=== PATIENT | female | born 1970 | race Caucasian/White ===

== ENCOUNTER 2018-12-14 05:36 | Emergency (ER) | payer SELFPAY ==
[2018-12-14] MEDS ORDERED: KETOROLAC 30 MG/ML INJ ONE (06:04)
[2018-12-14] MEDS ORDERED: ONDANSETRON 4 MG/2 ML VIAL ONE (06:04)
[2018-12-14 06:08] LABS: Absolute Lymphocytes (CBC) 2.5 K/uL (0.7-4.9); Absolute Monocytes 0.4 K/uL (0.1-1.3); Absolute Neutrophil 3.4 K/uL (1.8-8.0); Basophils % 0.3 % (0-1.3); Eosinophils % 3.5 % (0-4.4); Hematocrit 43.4 % (36.0-45.0); Lymphocytes % 38.4 % (15.3-44.8); MPV 7.8 fL (7.6-11.3); Monocytes % 6.6 % (3.3-12.3); RBC Red Blood Cell Count 4.68 M/uL (3.86-4.86)
[2018-12-14 06:21] LABS: Protime INR 0.85
[2018-12-14 06:34] LABS: ALT/SGPT 24 U/L (12-78); AST/SGOT 25 U/L (15-37); Albumin 3.9 g/dL (3.4-5.0); Alkaline Phosphatase 69 U/L (45-117); BUN Blood Urea Nitrogen 9 mg/dL (7-18); Bicarbonate 26 mmol/L (21-32); Bilirubin Direct < 0.1 mg/dL (0-0.2); Bilirubin Total 0.2 mg/dL (0.2-1.0); Glucose Level 94 mg/dL (74-106); Magnesium 2.3 mg/dL (1.8-2.4); NT PRO-BNP 50 pg/mL (<125); Potassium 4.3 mmol/L (3.5-5.1); Protein, Total 8.1 g/dL (6.4-8.2); Sodium Level 140 mmol/L (136-145); Troponin (Emerg Dept Use Only) < 0.02 ng/mL (0.0-0.045)
[2018-12-14] MEDS ORDERED: FENTANYL CITR 100 MCG/2 ML ONE (06:59)
--- NOTE | 2018-12-14 07:02 | ER ---
Nurse's Notes [facility] Name: Esthela Ramirez Age: 48 yrs Sex: Female : 1970 Arrival Date: 12/14/2018 Time: 05:37 Bed 6 Private MD: Diagnosis: Strain of muscle and tendon of back wall of thorax Presentation: 12/14 05:45 Presenting complaint: EMS states: "She is having sever left flank pain that is tender jd3 upon palpation that woke her up this morning.". Transition of care: patient was not received from another setting of care. Onset of symptoms was December 14, 2018. Risk Assessment: Do you want to hurt yourself or someone else? Patient reports no desire to harm self or others. Initial Sepsis Screen: Does the patient meet any 2 criteria? No. Patient's initial sepsis screen is negative. Does the patient have a suspected source of infection? No. Patient's initial sepsis screen is negative. Care prior to arrival: None. 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 jd3 Historical: - Allergies: 05:50 amoxicillin trihydrate; jd3 05:50 Clindamycin; jd3 05:50 potassium clavulanate; jd3 05:50 Morphine; jd3 05:50 PENICILLINS; jd3 - Home Meds: 05:50 losartan oral oral [Active]; jd3 - PMHx: 05:50 Hypertension; Hypothyroidism; jd3 - PSHx: 05:50 Breast surgery; Lumpectomy; jd3 - Immunization history:: Adult Immunizations up to date. - Social history:: Smoking status: Patient uses tobacco products, smokes one-half pack cigarettes per day. - Ebola Screening: : Patient negative for fever greater than or equal to 101.5 degrees Fahrenheit, and additional compatible Ebola Virus Disease symptoms. Screenin:53 Abuse screen: Denies threats or abuse. Nutritional screening: No deficits noted. jd3 Tuberculosis screening: No symptoms or risk factors identified. Fall Risk Ambulatory Aid- None/Bed Rest/Nurse Assist (0 pts). Gait- Normal/Bed Rest/Wheelchair (0 pts) Mental Status- Oriented to own ability (0 pts). Total Patrick Fall Scale indicates No Risk (0-24 pts). Assessment: 05:51 General: Appears uncomfortable, Behavior is anxious, crying, restless. Pain: Complains jd3 of pain in left lateral anterior chest Quality of pain is described as sharp, tender. Neuro: Level of Consciousness is awake, alert, obeys commands, Oriented to person, place, time, situation. Cardiovascular: Capillary refill < 3 seconds Patient's skin is warm and dry. Respiratory: Reports shortness of breath Airway is patent Respiratory effort is even, unlabored, Respiratory pattern is regular, symmetrical. GI: No signs and/or symptoms were reported involving the gastrointestinal system. : No signs and/or symptoms were reported regarding the genitourinary system. EENT: No signs and/or symptoms were reported regarding the EENT system. Derm: Skin is intact, Skin is dry, Skin is normal, Skin temperature is warm. Musculoskeletal: Circulation, motion, and sensation intact. Range of motion: intact in all extremities. 06:43 Reassessment: Patient appears in no apparent distress at this time. No changes from j previously documented assessment. Patient and/or family updated on plan of care and expected duration. Pain level reassessed. Patient is alert, oriented x 3, equal unlabored respirations, skin warm/dry/pink. Vital Signs: 05:50 BP 183 / 103; Pulse 91; Resp 19 S; Temp 98.1(O); Pulse Ox 97% on R/A; Weight 81.65 kg jd3 (R); Height 5 ft. 6 in. (167.64 cm) (R); Pain 8/10; 06:43 BP 176 / 116; Pulse 81; Resp 15 S; Pulse Ox 97% on R/A; jd3 05:50 Body Mass Index 29.05 (81.65 kg, 167.64 cm) jd3 ED Course: 05:37 Patient arrived in ED. al2 05:45 Shan Mae, TWILA is Primary Nurse. jd3 05:45 Rajesh Kimble MD is Attending Physician. tw4 05:47 Triage completed. jd3 05:51 Arm band placed on. jd3 05:53 Patient has correct armband on for positive identification. Bed in low position. Call [facility] light in reach. Side rails up X2. 05:55 Initial lab(s) drawn, by me, sent to lab. Inserted saline lock: 20 gauge in right ed1 antecubital area, using aseptic technique. Blood collected. 06:10 X-ray completed. Portable x-ray completed in exam room. Patient tolerated procedure kw poorly. 06:11 XRAY Chest (1 view) In Process Unspecified. EDMS 07:15 No provider procedures requiring assistance completed. IV discontinued, intact, hb bleeding controlled, No redness/swelling at site. Pressure dressing applied. Administered Medications: 06:03 CANCELLED (Physician Discretion): morphine 4 mg IVP once jd3 06:04 Drug: Zofran 4 mg Route: IVP; Site: right antecubital; jd3 06:54 Follow up: Response: No adverse reaction jd3 06:04 Drug: TORadol 30 mg Route: IVP; Site: right antecubital; jd3 06:54 Follow up: Response: No adverse reaction jd3 06:54 Drug: fentaNYL (PF) 25 mcg Route: IVP; Site: right antecubital; jd3 07:15 Follow up: Response: No adverse reaction; Medication administered at discharge. hb 07:14 Drug: cloNIDine 0.1 mg Route: PO; hb 07:15 Follow up: Response: Medication administered at discharge. hb Outcome: 07:01 Discharge ordered by . tw4 07:15 Discharged to home ambulatory, with family. hb 07:15 Condition: stable 07:15 Discharge instructions given to patient, Instructed on discharge instructions, follow up and referral plans. medication usage, Demonstrated understanding of instructions, follow-up care, medications, Prescriptions given X 3. 07:22 Patient left the ED. hb Signatures: Dispatcher [employer] EDNV Breanna Schwartz RN RN ed1 Nieves Darnell Heather, RN RN Shan Mae RN RN Abigail Farooq Terrence, MD MD tw4
--- NOTE | 2018-12-14 07:02 | EDPHYS ---
Physician Documentation [facility] Name: Esthela Ramirez Age: 48 yrs Sex: Female : 1970 Arrival Date: 12/14/2018 Time: 05:37 Bed 6 Private MD: ED Physician Rajesh Kimble HPI: 12/14 06:28 This 48 yrs old Female presents to ER via EMS with complaints of chest pain tw4 after coughing. 06:28 The patient or guardian reports chest pain that is located primarily in the left tw4 lateral anterior chest. Onset: just prior to arrival, today. The pain does not radiate. Associated signs and symptoms: Pertinent positives: shortness of breath, anxiety. The chest pain is described as sharp. Duration: The patient or guardian reports a single episode, that is still ongoing. Modifying factors: The symptoms are alleviated by remaining still, rest, the symptoms are aggravated by activity, breathing, cough, deep breath, movement, palpation of area, twisting torso. Severity of pain: At its worst the pain was severe in the emergency department the pain is unchanged. 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 jd3 Historical: - Allergies: 05:50 amoxicillin trihydrate; jd3 05:50 Clindamycin; jd3 05:50 potassium clavulanate; jd3 05:50 Morphine; jd3 05:50 PENICILLINS; jd3 - Home Meds: 05:50 losartan oral oral [Active]; jd3 - PMHx: 05:50 Hypertension; Hypothyroidism; jd3 - PSHx: 05:50 Breast surgery; Lumpectomy; jd3 - Immunization history:: Adult Immunizations up to date. - Social history:: Smoking status: Patient uses tobacco products, smokes one-half pack cigarettes per day. - Ebola Screening: : Patient negative for fever greater than or equal to 101.5 degrees Fahrenheit, and additional compatible Ebola Virus Disease symptoms. ROS: 06:28 Constitutional: Negative for fever, chills, and weight loss, Eyes: Negative for injury, tw4 pain, redness, and discharge. 06:28 Respiratory: Negative for shortness of breath, cough, wheezing, and pleuritic chest pain, Abdomen/GI: Negative for abdominal pain, nausea, vomiting, diarrhea, and constipation, Back: Negative for injury and pain, MS/Extremity: Negative for injury and deformity, Skin: Negative for injury, rash, and discoloration, Neuro: Negative for headache, weakness, numbness, tingling, and seizure. 06:28 Cardiovascular: Positive for chest pain, Negative for edema, orthopnea, palpitations, paroxysmal nocturnal dyspnea. Exam: 06:28 Constitutional: This is a well developed, well nourished patient who is awake, alert, tw4 and in no acute distress. Head/Face: Normocephalic, atraumatic. 06:28 Respiratory: Lungs have equal breath sounds bilaterally, clear to auscultation and percussion. No rales, rhonchi or wheezes noted. No increased work of breathing, no retractions or nasal flaring. Abdomen/GI: Soft, non-tender, with normal bowel sounds. No distension or tympany. No guarding or rebound. No evidence of tenderness throughout. Back: No spinal tenderness. No costovertebral tenderness. Full range of motion. Skin: Warm, dry with normal turgor. Normal color with no rashes, no lesions, and no evidence of cellulitis. MS/ Extremity: Pulses equal, no cyanosis. Neurovascular intact. Full, normal range of motion. Neuro: Awake and alert, GCS 15, oriented to person, place, time, and situation. Cranial nerves II-XII grossly intact. Motor strength 5/5 in all extremities. Sensory grossly intact. Cerebellar exam normal. Normal gait. 06:28 Chest/axilla: Inspection: normal, Palpation: tenderness, of the left lateral anterior chest, that totally reproduces the patient's complaints. 06:28 ECG was reviewed by the Attending Physician. Vital Signs: 05:50 BP 183 / 103; Pulse 91; Resp 19 S; Temp 98.1(O); Pulse Ox 97% on R/A; Weight 81.65 kg jd3 (R); Height 5 ft. 6 in. (167.64 cm) (R); Pain 8/10; 06:43 BP 176 / 116; Pulse 81; Resp 15 S; Pulse Ox 97% on R/A; jd3 05:50 Body Mass Index 29.05 (81.65 kg, 167.64 cm) jd3 MDM: 05:45 Patient medically screened. tw4 06:55 Data reviewed: vital signs, nurses notes. tw4 01/22 05:46 Order name: Basic Metabolic Panel; Complete Time: 06:53 12/14 06:54 Interpretation: Normal except: CL 108; GFR 74. 12/14 05:46 Order name: CBC with Diff; Complete Time: 06:54 12/14 06:54 Interpretation: Within normal limits. 12/14 05:46 Order name: LFT's; Complete Time: 06:54 12/14 06:54 Interpretation: Normal except: GLOB 4.2; A/G 0.9. 12/14 05:46 Order name: Magnesium; Complete Time: 06:54 12/14 06:54 Interpretation: Within normal limits: MG 2.3. 12/14 05:46 Order name: NT PRO-BNP; Complete Time: 06:54 12/14 06:54 Interpretation: Within normal limits: NT PRO-BNP 50. 12/14 05:46 Order name: PT-INR; Complete Time: 06:54 12/14 06:54 Interpretation: Within normal limits: PT 10.0. 12/14 05:46 Order name: Troponin (emerg Dept Use Only) 12/14 05:46 Order name: XRAY Chest (1 view) 12/14 05:46 Order name: EKG; Complete Time: 05:50 12/14 05:46 Order name: Cardiac monitoring; Complete Time: 05:59 12/14 05:46 Order name: EKG - Nurse/Tech; Complete Time: 05:59 12/14 05:46 Order name: IV Saline Lock; Complete Time: 05:56 12/14 05:46 Order name: Labs collected and sent; Complete Time: 05:56 12/14 05:46 Order name: O2 Per Protocol; Complete Time: 06:00 12/14 05:46 Order name: O2 Sat Monitoring; Complete Time: 06:00 EC:28 Rate is 72 beats/min. Rhythm is regular. QRS Bonham is Normal. AK interval is normal. QRS tw4 interval is normal. QT interval is normal. No Q waves. T waves are Normal. No ST changes noted. Clinical impression: Normal ECG. Interpreted by me. Reviewed by me. Administered Medications: 06:03 CANCELLED (Physician Discretion): morphine 4 mg IVP once jd3 06:04 Drug: Zofran 4 mg Route: IVP; Site: right antecubital; jd3 06:54 Follow up: Response: No adverse reaction jd3 06:04 Drug: TORadol 30 mg Route: IVP; Site: right antecubital; jd3 06:54 Follow up: Response: No adverse reaction jd3 06:54 Drug: fentaNYL (PF) 25 mcg Route: IVP; Site: right antecubital; jd3 07:15 Follow up: Response: No adverse reaction; Medication administered at discharge. hb 07:14 Drug: cloNIDine 0.1 mg Route: PO; hb 07:15 Follow up: Response: Medication administered at discharge. Disposition: 12/14/18 07:01 Discharged to Home. Impression: Strain of muscle and tendon of back wall of thorax. - Condition is Stable. - Discharge Instructions: Thoracic Strain, [id number]. - Prescriptions for Ibuprofen 800 mg Oral Tablet - take 1 tablet by ORAL route every 8 hours As needed take with food; 30 tablet. Tylenol- Codeine #3 300-30 mg Oral Tablet - take 2 tablet by ORAL route every 6 hours As needed; 6 tablet. Tramadol 50 mg Oral Tablet - take 1 tablet by ORAL route every 8 hours as needed; 12 tablet. - Work release form, Medication Reconciliation Form, Thank You Letter, Antibiotic Education, Prescription Opioid Use form. - Follow up: Private Physician; When: Upon discharge from the Emergency Department; Reason: Recheck today's complaints, Continuance of care. - Problem is new. - Symptoms have improved. Signatures: Dispatcher [employer] EDCT Autumn Brown RN TWILA Shan Mae RN RN Rajesh Haywood MD MD tw4 Corrections: (The following items were deleted from the chart) 06:03 05:46 morphine 4 mg IVP once ordered. tw4 jd3 07:22 07:01 12/14/2018 07:01 Discharged to Home. Impression: Strain of muscle and tendon of hb back wall of thorax. Condition is Stable. Forms are Medication Reconciliation Form, Thank You Letter, Antibiotic Education, Prescription Opioid Use. Follow up: Private Physician; When: Upon discharge from the Emergency Department; Reason: Recheck today's complaints, Continuance of care. Problem is new. Symptoms have improved. tw4
[2018-12-14] MEDS ORDERED: cloNIDine HCl 0.1 MG TAB ONE (07:18)
[2018-12-14 07:45] VITALS: TEMP 98.1; O2SAT 97
[2018-12-14 07:46] VITALS: BP 176/116
--- NOTE | 2018-12-14 08:39 | RAD REPORT ---
EXAM DESCRIPTION: RAD - Chest Single View - 12/14/2018 6:15 am CLINICAL HISTORY: CHEST PAIN Chest pain. COMPARISON: CHEST SINGLE VIEW dated 02/17/2013 FINDINGS: Portable technique limits examination quality. The lungs are grossly clear. The heart is normal in size. No displaced fractures. IMPRESSION: No acute intrathoracic process suspected.
--- NOTE | 2018-12-14 13:26 | EKG ---
Test Date: 2018-12-14 Test Time: 05:56:02 Bandoleer Packer: YOLY MEASUREMENT RESULTS: Intervals: Rate: 76 WI: 112 QRSD: 78 QT: 400 QTc: 450 Wallis: P: 26 WI: 112 QRS: 64 T: 24 INTERPRETIVE STATEMENTS: Normal sinus rhythm Normal ECG Compared to ECG 02/17/2013 12:23:19 No significant changes Electronically Signed On 12-14-18 13:24:07 MUD JACK OPERATOR by Orville Graff
== END 2018-12-14 07:22 | disposition home or self-care (01) ==
LOC: ER 05:36
DX: S29.012A Strain of muscle and tendon of back wall of thorax, initial encounter (principal); X58.XXXA Exposure to other specified factors, initial encounter; I10 Essential (primary) hypertension; E03.9 Hypothyroidism, unspecified; F17.210 Nicotine dependence, cigarettes, uncomplicated; Z79.899 Other long term (current) drug therapy
CPT/HCPCS: 36415; 71045; 80048; 80076; 83735; 83880; 84484; 85025; 85610; 93005; 96374; 96375; 99284; J2405; J3010

== ENCOUNTER 2019-06-10 10:15 | Day surgery (SDC) | payer OTHER ==
[2019-06-09 12:36] LABS: BUN Blood Urea Nitrogen 12 mg/dL (7-18); Bicarbonate 32 mmol/L (21-32); Glucose Level 84 mg/dL (74-106); Potassium 3.8 mmol/L (3.5-5.1); Sodium Level 144 mmol/L (136-145)
[2019-06-09 12:37] LABS: Absolute Lymphocytes (CBC) 2.6 K/uL (0.7-4.9); Basophils % 0.9 % (0-1.3); Hematocrit 36.4 % (36.0-45.0); Lymphocytes % 33.4 % (15.3-44.8); Monocytes % 7.1 % (3.3-12.3)
[2019-06-10 10:57] LABS: Specific Gravity 1.015 (1.005-1.030)
[2019-06-10] MEDS ORDERED: Ringers Lactate 1,000 ML IV ONE ×2 (10:58→14:53)
[2019-06-10] MEDS ORDERED: FENTANYL CITR 100 MCG/2 ML ONE (11:16)
[2019-06-10] MEDS ORDERED: dexAMETHasone 10 MG/ML VIAL ONE (11:16)
[2019-06-10] MEDS ORDERED: MIDAZOLAM HCL 2 MG/2 ML INJ ONE ×2 (11:16→14:24)
[2019-06-10] MEDS ORDERED: PROPOFOL 200 MG/20 ML VIAL IV ONE (11:16)
[2019-06-10] MEDS ORDERED: LIDOCAINE 2% MPF 5 ML VIAL ONE (11:16)
--- NOTE | 2019-06-10 13:30 | RAD REPORT ---
EXAM DESCRIPTION: RAD - Wrist Left 2 View - 06/10/2019 1:24 pm CLINICAL HISTORY: Radial fracture FINDINGS: 7 fluoroscopic intraoperative spot images demonstrate Sideplate and screws which affix a r adial fracture Fluoroscopy time 2 minutes. Examination performed by Dr. Humphrey
[2019-06-10] MEDS ORDERED: KETOROLAC 30 MG/ML INJ ONE (13:47)
--- NOTE | 2019-06-10 13:54 | P.BOP ---
Preoperative diagnosis: left distal radius comminuted intraarticular fx with median nerve sx Postoperative diagnosis: same Primary procedure: left distal radius ORIF, open CTR Estimated blood loss: 10ccs Anesthesia: General Complications: None Transferred to: Recovery Room Condition: Good
[2019-06-10] MEDS: HYDROMORPHONE HCL 1 MG/ML INJ ONE ×2 (14:00→14:15)
[2019-06-10] MEDS ORDERED: HYDROMORPHONE HCL 1 MG/ML INJ ONE (14:36)
[2019-06-10] MEDS: LABETALOL HCL 100 MG/20 ML ONE ×2 (14:40→14:49)
[2019-06-10] MEDS ORDERED: LABETALOL HCL 100 MG/20 ML ONE (14:47)
[2019-06-10 14:57] VITALS: TEMP 97.3
[2019-06-10] MEDS ORDERED: HYDROCODONE/APAP 5/325 MG TAB ONE (15:39)
[2019-06-10] MEDS ORDERED: ONDANSETRON 4 MG/2 ML VIAL ONE (15:39)
[2019-06-10 16:21] VITALS: BP 159/78; O2SAT 99
--- NOTE | 2019-06-10 21:57 | OP ---
Date of Procedure: 06/10/2019 Surgeon: Dony Humphrey MD Preoperative Diagnoses: Left distal radius comminuted intra-articular fracture with at least 2 intra -articular fragments, also with median nerve paresthesias. Postoperative Diagnoses: Left distal radius comminuted intra-articular fracture with at least 2 intr a-articular fragments, also with median nerve paresthesias. Procedures: Left distal radius open reduction and internal fixation using Acumed 2 volar radius plat e, also with open carpal tunnel release. Estimated Blood Loss: 10 cc. Complications: There were no complications. Specimen: No pathology specimens sent. Indications For Operation: Ms. Ramirez unfortunately fell injuring her left wrist. She was seen and examined in the emergency department where she was found to have a comminuted highly displaced dista l radius fracture. She underwent a closed reduction at that time by the ER and was placed to a sugar -tong splint. She did not come in contact with me until quite a bit later and on seeing me, she is i n a sugar-tong splint. She is complaining of numbness of her thumb, index and long finger. Review o f x-rays reveal actually what appears to be a good closed reduction of the distal radius. However, t here are some other definitely intra-articular comminution as well as some projection of volar bony o ssicles. All risks, benefits, and alternatives to open reduction and internal fixation, open carpal tunnel release discussed with the patient. She states she understands things as presented wished to proceed. Description Of Procedure: The patient was taken to the operating room and placed in supine position. General anesthesia was obtained by staff. Following this, a well-padded tourniquet was placed on s uperior left arm. Left lower extremity was then prepped and draped in the usual sterile fashion. Th e arm was then elevated, but not exsanguinated. Tourniquet was raised. A standard volar approach of Dylan was then taken down carefully through skin and soft tissues. Meticulous hemostasis being main tained using bipolar electrocautery. This leads to the flexor carpi radialis. Flexor carpi radialis was then moved radialward and the sheath was then explored using a knife. The tendon and muscle bel ly of the flexor pollicis longus was seen. These were then swept ulnarward to protect the median ner ve. The pronator quadratus was encountered. The large volar fragment is extruded with a pretty clos e to a centimeter from the volar aspect of the distal radius. The pronator quadratus was divided in its midsubstance and gently moved off the distal radius using a wooden handle elevator. This allowed for good visualization of the volar aspect. Some of this is gently removed. However, the majority of it was left intact as the fracture site, which is quite old, was debrided. Combination of a stand jonathan reduction technique as well as finger pressure was then used to establish a more normal appearanc e of the distal radius. This was followed by a trial application of the Acumed 2 volar radius plate. This appeared to compress the volar fragments down well and essentially with another small reductio n maneuver appears to fit well with a near anatomic reduction of the distal radius. This was followe d by securing the plate using the toggle screw, it was checked again for position and the distal scre ws were then placed in a fashion to maintain the reduction. This was followed by checking with C-arm , found to have good reduction with AP and lateral. The remainder of the shaft screws were then plac ed without difficulty. The wound was gently irrigated and attention was then turned to the carpal tu nnel. A separate incision was then made which parallels the thenar crease, taken down carefully thro ugh skin and soft tissues. Meticulous hemostasis being maintained using bipolar electrocautery. Thi s leads down to the palmar fascia, which was then divided. Any obstructions of the transverse carpal ligament were then gently swept aside using a Winger elevator. A small vale is made in the transvers e carpal ligament, which allowed for visualization of the underlying nerve and the carpal tunnel stru ctures. It was then divided from a proximal to distal direction until there were no constricting ban ds. It was then very carefully followed proximally and released until there were no constricting ban ds. An instrument can be passed along the course of the median nerve without any constricting bands. At this point, the swelling was fully released. Following this, tourniquet was dropped without sig nificant bleeding and the skin was closed using interrupted nylon sutures. The patient was then plac ed extremely well-padded sterile dressing as well as sugar-tong splint, awakened, and taken to the recovery room in good condition. N o complications. SE/MODL Voice ID: [id number] Report ID: [id number]
== END 2019-06-10 16:20 | disposition home or self-care (01) ==
LOC: OR 10:15
PROVIDERS: ATTEND Orthopaedic Surgery
PROC: 0PSJ04Z Reposition Left Radius with Internal Fixation Device, Open Approach (ICD-10-PCS; principal; 2019-06-10 11:30)
PROC: 01N50ZZ Release Median Nerve, Open Approach (ICD-10-PCS; 2019-06-10 11:30)
DX: S52.572A Other intraarticular fracture of lower end of left radius, initial encounter for closed fracture (principal); G56.02 Carpal tunnel syndrome, left upper limb; Z87.891 Personal history of nicotine dependence
CPT/HCPCS: 36415; 80048; 81025; 85025; J1100; J1170; J2250; J2405; J2704; J3010

== ENCOUNTER 2024-03-09 06:33 | Observation (INO) | payer OTHER, SELFPAY ==
--- OUTSIDE RECORDS SUMMARY | 2024-03-09 06:36 | XMS REPORT | Continuity of Care Document ---
Author Name Unknown Address [address] [facility]. [address] [place] [id number] [facility] thconnect Address [address] [facility]. 1 [address] [place] [address] Care Team Providers Care Development Scientist Name Role Phone Jamie Chavez Attending Clinician UnavailRosalino Ponce Attending Clinician Unavailable Cony Peterson Attending Clinician Unava ilable Physician, No Primary or Family Admitting Clinic surinder Unavailable Yuriy Smiley Admitting Clinician Unavailable Cony Peterson Admitting Clinician Unajimena soto Payers Payer Name Policy Type Policy Number Effective Date Expirati on Date Source Allergies, Adverse Reactions, Alerts Allergy Name Allergy Type Status Severity Reaction(s) Onset Date Inactive Date Treating Clinician Comments Source Penicill ins DA Active SV ANAPHYLAXIS 03-30 00:00: 00 [facility] morphine DA Active MO RASH; HEADACHE 03-30 00:00: 00 [facility] clindamy quinton DA Active SV ANAPHYLAXIS 03-30 00:00: 00 [facility] clindamy quinton DA Active SV ANAPHYLAXIS 03-29 00:00: 00 [facility] Penicill ins DA Active SV ANAPHYLAXIS 03-29 00:00: 00 [facility] morphine DA Active MO RASH; HEADACHE 03-29 00:00: 00 [facility] clindamy quinton DA Active U ANAPHYLAXIS 07-31 00:00: 00 [facility] Penicill ins DA Active SV ANAPHYLAXIS 07-31 00:00: 00 [facility] morphine DA Active MO RASH; HEADACHE 07-31 00:00: 00 [facility] No Known Drug Intolera nces DA Active U 2004-11 00:00: 00 [facility] No Known Contrast Allergie s DA Active U 2004-11 00:00: 00 [facility] No Known Drug Allergie s DA Active U 2004-11 00:00: 00 [facility] No Known Food Allergie s DA Active U 2004-11 00:00: 00 [facility] No Known Other Allergie s DA Active U 2004-11 00:00: 00 [facility] Procedures Procedure Date / Time Performed Performing Clinicia n Source [id number] 2023-04-01 00:00:00 [facility] Encounters Start Date/Time End Date/Time Encounter Type Admission Type Attending Clinicians Care Facility Care Department Encounter ID Source 2023-11-28 14:49:00 2023-11-28 17:48:00 Emergency EM Jamie Chavez [facility] DESHAUN [id number] [facility] 2023-03-30 16:01:00 2023-04-02 15:03:00 Inpatient EM BebetogabNimeshRosalino [facility] OBSE [id number] [facility] 2022-07-31 20:37:00 2022-08-05 10:42:00 Inpatient EM Cony Peterson [facility] MEDI [id number] [facility] Results Test Description Test Time Test Comments Results Result Co mments Source TROP-I HIGH [id number] 16:59:00* Test Item Value Reference Range Interpretation Comme nts TROP-I HIGH SENSITIVITY (test code = TROPIHS) 42 ng/L 0-45 N CAUTION: Units of the current test methodology (ng/L) differfrom the prior test methodology (ng/mL) by a factor of 1000. 99th Percentile Upper Reference Limit (URL): Females: 54 ng/LMales: 78 ng/L In order to distinguish acute elevations of high sensitivitytroponin from other clinical conditions, the FourthUniversal Definition of Myocardial Infarction stressesclinical assessment and the demonstration of a rise and/orfall in serial troponin results above the URL. Results from different methodologies should not be comparedto one another as quantitative results and URLs may vary bymethod. BASIC METABOLIC [id number] 16:55:00* Test Item Value Reference Range Interpretation Comme nts SODIUM (test code = NA) 134.0 mmol/L 133-144 N POTASSIUM (test code = K) 3.9 mmol/L 3.5-5.1 N CHLORIDE (test code = CL) 102 mmol/L 95-105 N CARBON DIOXIDE (test code = CO2) 27 mmol/L 21-32 N ANION GAP (test code = GAP) 5.0 GAP calc 4.0-15.0 N GLUCOSE (test code = GLU) 113 MG/DL 70-110 H BLOOD UREA NITROGEN (test code = BUN) 10 MG/DL 7-18 N GLOMERULAR FILTRATION RATE (test code = GFR) 105 estGFR >60 The Glomerular Filtration Rate is a calculated parameterbased on serum Creatinine, patient age and sex. GFR valuesless than 60 mL/min/1.73 square meters are indicative ofChronic Kidney Disease. Values less than 15 mL/min/1.73square meters indicate Kidney failure. The calculation forGFR is based on the CKD-EPI (2020) calculation. This formulais race indifferent and is the recommended formula for GFRby the National Kidney Foundation for Adults.The GFR will not calculate if the sex is unknown or if thepatient's age is <18 years. CREATININE (test code = CREAT) 0.68 MG/DL 0.55-1.30 N Results may be depressed if patient is takingN-Acetylcysteine (NAC) and Metamizole (Dipyrone). CALCIUM (test code = CA) 9.5 MG/DL 8.5-10.1 N INDEX HEMOLYSIS (test code = HEMINDEX) 1 NORMAL <10 MG Index/DL See_Comment [Automated message] The system which generated this result transmitted reference range: 1 NORMAL. The reference range was not used to interpret this result as normal/abnormal. INDEX ICTERIC (test code = ICTINDEX) 1 NORMAL <2 MG Index/DL See_Comment [Automated message] The system which generated this result transmitted reference range: 1 NORMAL. The reference range was not used to interpret this result as normal/abnormal. INDEX LIPEMIA (test code = LIPINDEX) 1 NORMAL <50 MG Index/DL See_Comment [Automated message] The system which generated this result transmitted reference range: 1 NORMAL. The reference range was not used to interpret this result as normal/abnormal. COVID 19 INHOUSE [id number] 16:52:00* Test Item Value Reference Range Interpretation Comme nts COVID 19 INHOUSE AG (test co de = [id number]) Negative Neg CBC W/O [id number] 16:36:00* Test Item Value Reference Range Interpretation Comme nts WHITE BLOOD CELL (test code = WBC) 10.6 K/mm3 4.1-12.1 N RED BLOOD CELL (test code = RBC) 4.62 M/mm3 3.8-5.5 N HEMOGLOBIN (test code = HGB) 14.2 G/DL 10.6-15.8 N HEMATOCRIT (test code = HCT) 42.7 % 31.8-47.4 N MEAN CELL VOLUME (test code = MCV) 92.4 fL 80.1-101.1 N MEAN CELL HGB (test code = MCH) 30.7 pg 25.3-35.3 N MEAN CELL HGB CONCETRATION ( test code = MCHC) 33.3 G/DL 32.7-35.1 N RED CELL DISTRIBUTION WIDTH (test code = RDW) 13.8 % 12.2-16.4 N PLATELET COUNT (test code = PLT) 276 K/mm3 155-337 N MEAN PLATELET VOLUME (test c ode = MPV) 9.1 fL 6.8-11.2 N - XR CHEST 1 [id number] 15:37:00 [facility] : 1970 Sex: F FAX: Mario Olsen [place]: E St: PRE Patient Name: EMMIE TIMMONS Unit No: [id number] EXAMS: CPT CODE: [id number] XR CHEST 1V 73789 EXAM: - XR CHEST 1 V COMPARISON: None available at the time of interpretation. LOCATION: [facility] HISTORY: Shortness of breath FINDINGS: Single view of the chest. No indwelling lines or tubes. No pneumothorax. Bibasilar interstitial pulmonary edema noted. The mediastinal contours are unremarkable/unchanged. No acute osseous findings are present. IMPRESSION: Bibasilar interstitial pulmonary edema. at 1537 Reported and signed by: Ugo Stinson MD CC: Mario CHAN Dictated Date/Time: 11/28/2023 (1537)Technologist: Shaniqua Lee Transcribed Date/Time: 11/28/2023 (2026) By: [email or web address] Orig Print D/T: S: 11/28/2023 (8305) BRYSON Ojeda NAME: EMMIE TIMMONS [address] [place] [address] PHYS: Mario Herrera, [place] [address] : 1970 AGE: 53 SEX: F LOC: BARRY PHONE #: [phone] EXAM DATE: 11/28/2023 STATUS: PRE ER FAX #: [phone] RAD NO: DC Dt: PAGE 1 Signed [id number] 14:22:00* Test Item Value Reference Range Interpretation Comme nts SURGICAL (test code = SR) RUN DATE: 04/02/23 [place] - LAB PAGE 1 RUN TIME: 1422 Specimen Inquiry RUN USER: INTERFACE PATIENT: EMMIE TIMMONS LOC: SRINATH U #: [id number] AGE/SX: 52/F ROOM: [facility] RE03/30/23REG DR: Rosalino Fletcher MD : 74 BED: W DIS: STATUS: ADM IN TLOC: SPEC #: [id number] RECD: 04/01/23 STATUS: TERRI ABRAHAM #: [id number] OUMAR: 04/01/[address]: Rosalino Fletcher MD ENTERED: 04/01/23 SP TYPE: SURGICAL OTHR DR: No Primary or Family Physician Self Referred Yuriy Smiley MD, Stephen C MDORDERED: 04500, ANATOMIC SPEC COPIES TO: No Primary or Family Physician Self Referred Yuriy Smiley MD [address] [facility] [place] [address] Vishal Kim MD [address] [facility] [address] [place] [address] Rosalino Fletcher MD [address] [place] [phone] HISTOLOGY: TISSUE ID BLK PCS LIZZETTE LEV / PROCEDURE DISPOSITION ____ ___ ___ ___ ___ GALB A 2 2 PROCEDURES: 71510 (04/01/23) TISSUES: A. GALLBLADDER FINAL DIAGNOSIS GALLBLADDER, LAPAROSCOPIC CHOLECYSTECTOMY: - Chronic acalculous cholecystitis- One benign pericholecystic lymph node CONTINUED ON NEXT PAGE RUN DATE: 04/02/23 [facility] - LAB PAGE 2 RUN TIME: 1422 Specimen Inquiry RUN USER: INTERFACE SPEC #: [id number] PATIENT: EMMIE TIMMONS #[id number] (Continued) GROSS DESCRIPTION Received in formalin labeled with the patient's name (Ashley), medical record number and"gallbladder" is a 10 x 3 x 2 cm intact ovoid gallbladder with pink-red serosal surface andcauterized hepatic aspect. The cystic duct margin has metallic roverto and appears patent.Longitudinal opening reveals dark green thin bile. Gallstones are not identified withinthe gallbladder lumen or the specimen container. The mucosa is nicholas and slightlytrabeculated. A mass is not identified. The gallbladder wall is up to 0.2 cm thick. Section Code: A1, cystic duct margin; A2, field marketing representative gallbladder wall. OK/tb MICROSCOPIC DESCRIPTION Unless otherwise indicated, a microscopic examination has been performed on all specimensand the findings are incorporated in the final diagnosis. CLINICAL INFORMATION Cholecystitis - Signed SIGNATURE ON FILE Jonas Lyon 04/02/23 1422 END OF REPORT - HEPA IMAG INCL GB W [id number] 12:12:00 [facility] : 1970 Sex: F-------- Patient Name: EMMIE TIMMONSJacqueline No: [id number] EXAMS: CPT CODE: [id number] HEPA IMAG INCL GB W PHA [id number] LOCATION: T18 Hepatobiliary scan INDICATION: Abdominal pain Hepatobiliary imaging was performed after administration of 8.3 mCi technetium 99m mebrofenin. Normal activity is present throughout the liver. Images were obtained up to and including 2 hours. There is no activity within the gallbladder, common bile duct or small bowel. IMPRESSION: Acute cholecystitis/cystic duct obstruction at 1212 Reported and signed by: Ferdinand Howe D.O. Nuclear Medicine Cardiology exams performed on dual head cameras with appropriate software for processing and reporting. CC: Yan Firoz MD [facility] NAME: ASHLEYEMMIE [facility] PHYS: Yuriy Blanco MD [address] [place] [address] : 1970 AGE: 52 SEX: HAROON PHILLIPS [facility] LOC: B.421 W PHONE #: [phone] EXAM DATE: 03/31/2023 STATUS: ADM IN FAX #: [phone] RAD NO: DC Dt: PAGE 1 Signed Report Patient Name: EMMIE TIMMONS Unit No: [id number] EXAMS: CPT CODE: [id number] IMAG INCL GB W PHA [id number] (Continued) Technologist: GUILLERMINA MORRIS Transcribed Date/Time: 03/31/2023 (1212) - [email or web address] Orig Print D/T: S: 03/31/2023 (1216) BRYSON Ojeda NAME: ASHLEYEMMIE MEDICAL IMAGING PHYS: Yuriy Lantigua MD [address] [place] [address] : 1970 AGE: 52 SEX: HAROON PHILLIPS [facility] LOC: B.421 W PHONE #: [phone] EXAM DATE: 03/31/2023 STA TUS: ADM IN FAX #: [phone] RAD NO: DC Dt: PAGE 2 Signed Report- CT CHEST W/O [id number] 10:16:00 [facility] ASHLEY EMMIE : 1970 Sex: F Patient Name: EMMIE TIMMONS Unit No: [id number] EXAMS: CPT CODE: [id number] CT CHEST W/O CONTRAST 61484 EXAM: - CT CHEST W/O CONTRAST HISTORY: r/o pneumonia Location: T 18 TECHNIQUE: Axial tomograms throughthe chest were obtained without intravenous contrast. Coronal and sagittal reformatted images are provided. Automated exposure reduction (Auto mA/Smart mA) was utilized in compliance with ACR Image Wisely. Unless otherwise specified, incidental findings do not require dedicated imaging follow-up. COMPARISON: 03/29/2023 FINDINGS: LUNGS: A few tiny emphysematous blebs seen at the lung apices. Small areas of pleural and parenchymal scarring at the lingula and right middle lobe. Small area of pleural thickening adjacent to old healed right rib fractures A few new linear opacities are seen at the lung bases suggesting subsegmental atelectasis. No channing consolidation or groundglass opacities. Thereare calcified granuloma in the left lung. There is a 2.5 mm groundglass nodule in the left upper lobe, series 3, image 34. There is a 2.5 mm round class nodule the right lower lobe, series 3, image 49. PLEURA: No pleural effusion or pneumothorax. VASCULATURE: The aorta is normal in caliber. No significant atherosclerotic change. TRACHEOBRONCHIAL TREE: The trachea and lobar bronchi are unremarkable. LYMPHATICS: There is no gross adenopathy accounting for lack of intravenous contrast. VISUALIZEDABDOMEN: Unremarkable. BONES: No acute osseous findings. Degenerative change involving the spine ispresent. There are multiple old healed rib fractures. SOFT TISSUES: Unremarkable. OTHER: No significant additional findings. IMPRESSION: A few new linear opacities are seen in the lung bases which suggests subsegmental atelectasis. Mild emphysema and minimal/mild scattered pleural parenchymal scarr ing. [facility] Augie NAME: EMMIE TIMMONS MEDICAL IMAGING PHYS: Yuriy Lantigua MD [address] [place] [address] BLVD : 1970 AGE: 52 SEX: HAROON PH[place] [address] LOC: B.421 W PHONE #: [phone] EXAM DATE: 03/30/2023 STATUS: ADM IN FAX #: [phone] RAD #: D/C DT PAGE 1 Signed Report (CONTINUED) Patient Name: EMMIE TIMMONS Unit No: [id number] EXAMS: CPT CODE: [id number] CT CHEST W/O CONTRAST 15840 (Continued) 2 subcentimeter groundglass nodules are seen in the lungs. A follow-up CT scan in 3-6 months as per Fleischner recommendations. at 1016 Reported and signed by: Elsa Nicole MD CC: Yuriy Smiley MD Dictated Date/Time: 03/30/2023 (1016) Technologist: REILLY POSADA CTDI: 6.22 DLP: 257.71 Trnscrpt: 03/30/2023 (1016) [email or web address] BRYSON Ojeda NAME: EMMIE TIMMONS MEDICAL IMAGING PHYS: Yuriy Lantigua MD [address] [place], [place] [address]VD : 1970 AGE: 52 SEX: HAROON PHILLIPS [facility] LOC: B.421 W PHONE #: [phone] EXAM DATE: 03/30/2023 STATUS: ADM IN FAX #: [phone] #: D/C DT PAGE 2 Signed Report Patient Name: EMMIE TIMMONS Unit No: [id number] EXAMS: CPT CODE: [id number] CT CHEST W/O CONTRAST 76685 (Continued) Orig Print D/T: S: 03/30/2023 (1019) BRYSON WhippleroeNAME: EMMIE TIMMONS MEDICAL IMAGING PHYS: Yuriy Lantigua MD [address] [place], [place] [address]VD : [birth year] AGE: 52 SEX: HAROON PHILLIPS [address] LOC: B.421 W PHONE #: [phone] DATE: 03/30/2023 STATUS: ADM IN FAX #: [phone] RAD #: D/C DT PAGE 3 Signed Report- US ABDOMEN [id number] 08:04:00 [facility] : 1970 Sex: F Patient Name: EMMIE TIMMONS Unit No: [id number] EXAMS: CPT CODE: [id number] US ABDOMEN LTD 53395 Limited ultrasound abdomen, right upper quadrant LOCATION: T 18 INDICATION:Epigastric and right upper quadrantpain The liver is normal in size and echogenicity. There is hepatopedal flow in the portal vein. The common bile duct was within normal limits. Focal sludge in gallbladder with tiny gallstone. No wall thickening, or pericholecystic fluid. Negative sonographic Beltran sign. The visualized portions ofthe right kidney, aorta, IVC and pancreas are unremarkable. IMPRESSION: Gallbladder sludge and tinygallstone. No sonographic evidence of acute cholecystitis. at 0804 Reported and signed by: Ferdinand Howe D.O. CC: Jhonny HERRON Technologist: Argelia Roldan Trnscrbd D/ (803) Analilia Probe: Orig PrintD/T: S: 03/30/2023 (806) Probe: BRYSON Ojeda NAME: EMMIE TIMMONS MEDICAL IMAGING PHYS: Yuriy Lantigua MD [address] [place] [address] BLVD : 1970 AGE: 52 SEX: F [place] O[place]EDA [address] LOC: B.421 W PHONE #: [phone] EXAM DATE: 03/30/2023 STATUS: ADM IN FAX #: [phone] RAD NO: Page 1 Signed ReportBASIC METABOLIC [id number] 04:27:00* Test Item Value Reference Range Interpretation Comme nts SODIUM (test code = NA) 135.0 mmol/L 133-144 N POTASSIUM (test code = K) 3.8 mmol/L 3.5-5.1 CHLORIDE (test code = CL) 105 mmol/L 95-105 N CARBON DIOXIDE (test code = CO2) 28 mmol/L 21-32 N ANION GAP (test code = GAP) 2.0 GAP calc 4.0-15.0 L GLUCOSE (test code = GLU) 90 MG/DL 70-110 N BLOOD UREA NITROGEN (test code = BUN) 18 MG/DL 7-18 N GLOMERULAR FILTRATION RATE (test code = GFR) 82 estGFR >60 The Glomerular Filtration Rate is a calculated parameterbased on serum Creatinine, patient age and sex. GFR valuesless than 60 mL/min/1.73 square meters are indicative ofChronic Kidney Disease. Values less than 15 mL/min/1.73square meters indicate Kidney failure. The calculation forGFR is based on the CKD-EPI (202) calculation. This formulais race indifferent and is the recommended formula for GFRby the National Kidney Foundation for Adults.The GFR will not calculate if the sex is unknown or if thepatient's age is <18 years. CREATININE (test code = CREAT) 0.86 MG/DL 0.55-1.30 N Results may be depressed if patient is takingN-Acetylcysteine (NAC) and Metamizole (Dipyrone). CALCIUM (test code = CA) 9.9 MG/DL 8.5-10.1 N INDEX HEMOLYSIS (test code = HEMINDEX) 1 NORMAL <10 MG Index/DL See_Comment [Automated message] The system which generated this result transmitted reference range: 1 NORMAL. The reference range was not used to interpret this result as normal/abnormal. INDEX ICTERIC (test code = ICTINDEX) 2 TRACE 2-5 MG Index/DL See_Comment [Automated message] The system which generated this result transmitted reference range: 1 NORMAL. The reference range was not used to interpret this result as normal/abnormal. INDEX LIPEMIA (test code = LIPINDEX) 1 NORMAL <50 MG Index/DL See_Comment [Automated message] The system which generated this result transmitted reference range: 1 NORMAL. The reference range was not used to interpret this result as normal/abnormal. CBC W/AUTO [id number] 04:05:00* Test Item Value Reference Range Interpretation Comme nts WHITE BLOOD CELL (test code = WBC) 10.0 K/mm3 4.1-12.1 N RED BLOOD CELL (test code = RBC) 4.50 M/mm3 3.8-5.5 N HEMOGLOBIN (test code = HGB) 14.1 G/DL 10.6-15.8 N HEMATOCRIT (test code = HCT) 41.7 % 31.8-47.4 N MEAN CELL VOLUME (test code = MCV) 92.7 fL 80.1-101.1 N MEAN CELL HGB (test code = MCH) 31.3 pg 25.3-35.3 N MEAN CELL HGB CONCETRATION ( test code = MCHC) 33.8 G/DL 32.7-35.1 N RED CELL DISTRIBUTION WIDTH (test code = RDW) 13.9 % 12.2-16.4 N RED CELL DISTRIBUTION WIDTH (test code = RDW-SD) 46.6 fL 36.4-46.3 H PLATELET COUNT (test code = PLT) 283 K/mm3 155-337 N MEAN PLATELET VOLUME (test c ode = MPV) 9.7 fL 6.8-11.2 N GRANULOCYTE % (test code = GR%) 84.8 % 37.8-82.6 H IMMATURE GRANULOCYTE % (test code = IG%) 0.3 % 0.0-2.0 N LYMPHOCYTE % (test code = LY%) 7.4 % 14.1-45.4 L MONOCYTE % (test code = MO%) 6.0 % 2.5-11.7 N EOSINOPHIL % (test code = EO%) 1.1 % 0.0-6.2 N BASOPHIL % (test code = BA%) 0.4 % 0.0-2.1 N NUCLEATED RBC % (test code = NRBC%) 0.0 /100WBC% 0.0-1.0 N GRANULOCYTE # (test code = GR#) 8.45 k/mm3 2.0-13.7 N IMMATURE GRANULOCYTE # (test code = IG#) 0.03 K/mm3 0.00-0.03 N LYMPHOCYTE # (test code = LY#) 0.74 K/mm3 0.6-3.8 N MONOCYTE # (test code = MO#) 0.60 K/mm3 0.11-0.59 H EOSINOPHIL # (test code = EO#) 0.11 K/mm3 0.0-0.4 N BASOPHIL # (test code = BA#) 0.04 K/mm3 0.0-0.1 N NUCLEATED RBC # (test code = NRBC#) 0.00 K/mm3 0.0-0.05 N GLYCOSYLATED HEMOGLOBIN (HA1C)2023-03-29 16:17:00* Test Item Value Reference Range Interpretation Comme nts GLYCOSYLATED HEMOGLOBIN (HA1 C) (test code = GLYHGB) 5.5 % IS-A1C 4.5-5.6 N COMPREHENSIVE METABOLIC [id number] 16:12:00* Test Item Value Reference Range Interpretation Comme nts SODIUM (test code = NA) 134.0 mmol/L 133-144 N POTASSIUM (test code = K) 2.9 mmol/L 3.5-5.1 L CHLORIDE (test code = CL) 101 mmol/L 95-105 N CARBON DIOXIDE (test code = CO2) 29 mmol/L 21-32 N ANION GAP (test code = GAP) 4.0 GAP calc 4.0-15.0 N GLUCOSE (test code = GLU) 152 MG/DL 70-110 H BLOOD UREA NITROGEN (test code = BUN) 20 MG/DL 7-18 H GLOMERULAR FILTRATION RATE (test code = GFR) 59 estGFR >60 L The Glomerular Filtration Rate is a calculated parameterbased on serum Creatinine, patient age and sex. GFR valuesless than 60 mL/min/1.73 square meters are indicative ofChronic Kidney Disease. Values less than 15 mL/min/1.73square meters indicate Kidney failure. The calculation forGFR is based on the CKD-EPI (2020) calculation. This formulais race indifferent and is the recommended formula for GFRby the National Kidney Foundation for Adults.The GFR will not calculate if the sex is unknown or if thepatient's age is <18 years. CREATININE (test code = CREAT) 1.14 MG/DL 0.55-1.30 N Results may be depressed if patient is takingN-Acetylcystein e (NAC) and Metamizole (Dipyrone). TOTAL PROTEIN (test code = PROT) 8.1 G/DL 6.4-8.2 N ALBUMIN (test code = ALB) 4.1 G/DL 3.4-5.0 N ALBUMIN/GLOBULIN RATIO (test code = A/G) 1.0 RATIO 1.2-2.2 L CALCIUM (test code = CA) 10.0 MG/DL 8.5-10.1 N BILIRUBIN TOTAL (test code = BILT) 0.40 MG/DL 0.00-1.00 N BILIRUBIN DIRECT (test code = BILD) 0.23 MG/DL 0.00-0.30 N BILIRUBIN INDIRECT (test code = BILIND) 0.17 MG/DL 0.2-1.3 L SGOT/AST (test code = AST) 92 Unit/L 15-37 H SGPT/ALT (test code = ALT) 47 Unit/L 12-78 N ALKALINE PHOSPHATASE TOTAL (test code = ALKP) 89 Unit/L 45-117 N INDEX HEMOLYSIS (test code = HEMINDEX) 1 NORMAL <10 MG Index/DL See_Comment [Automated message] The system which generated this result transmitted reference range: 1 NORMAL. The reference range was not used to interpret this result as normal/abnormal. INDEX ICTERIC (test code = ICTINDEX) 1 NORMAL <2 MG Index/DL See_Comment [Automated message] The system which generated this result transmitted reference range: 1 NORMAL. The reference range was not used to interpret this result as normal/abnormal. INDEX LIPEMIA (test code = LIPINDEX) 1 NORMAL <50 MG Index/DL See_Comment [Automated message] The system which generated this result transmitted reference range: 1 NORMAL. The reference range was not used to interpret this result as normal/abnormal. - CTA [id number] 13:05:00 [facility] : 1970 Sex: F Patient Name: EMMIE TIMMONS Unit No: [id number] EXAMS: CPT CODE: [id number] CTA ABDOMEN 08191 EXAM: - CTA PELVIS, - CT ANGIO CHEST, - CTA ABDOMEN LOCATION: H65 TECHNIQUE: Serial axial CT images were obtained from the supraclavicular region to the proximal femurs with the administration of intravenous contrast. Oral contrast was not administered. Phase(s): Arterial Reformats: Coronal and sagittal MIPS This exam was performed according to our departmental dose-optimization program, which includes automated exposure control, adjustment of the mA and/or kV according to patient size and/or use of iterative reconstruction technique. Unless otherwise specified, incidental findings do not require dedicated imaging follow-up. COMPARISON: MRCP 08/01/2022, CT abdomen pelvis 07/31/2022 HISTORY: abd pain with radiation to back ANGIOGRAPHIC FINDINGS: THORACIC AORTA: Nonaneurysmal with no significant atherosclerosis or luminal narrowing. No intramural hematoma, penetrating ulcer, or dissection. ARCH VESSELS: Well-opacified throughout. ABDOMINAL AORTA: Mild calcifications of the infrarenal portion. Nonaneurysmal throughout with no evidence of acute injury/dissection. AORTIC BRANCHES: The celiac axis, superior and inferior mesenteric arteries, and bilateral renal arteries all appear well opacified throughout. No incidental aneurysms identified. ILIOFEMORAL BRANCHES: Right: Unremarkable. Left: Unremarkable. NON-ANGIOGRAPHIC FINDINGS: CHEST THYROID: Normal. LYMPHADENOPATHY: There is no supraclavicularor axillary lymphadenopathy. No enlarged mediastinal or hilar lymph nodes. AIRWAYS: Unremarkable. LUNGS/PLEURA: No ground glass opacities or consolidations. No pleural [facility] [place] NAME: EMMIE TIMMONS [address] [place] [address] Bl PHYS: Chris Masters, [place] [address] : 1970 AGE: 52 SEX: F LOC: B.ERS PHONE #: [phone] EXAM DATE: 03/29/2023 STATUS: REG ER FAX #: [phone] RAD #: D/C DT PAGE 1 Signed Report (CONTINUED) Patient Name: EMMIE TIMMONS Unit No: [id number] EXAMS: CPT CODE: [id number] CTA ABDOMEN 79761 (Continued) effusion, pleural based masses, or calcifications. No suspicious pulmonary nodules. MEDIASTINUM: The heart and pericardium are unremarkable. No coronary artery calcifications. The pulmonary trunk is normal in size. The esophagus is grossly unremarkable. ABDOMEN-PELVIS LIVER: There is diffuse heterogeneous enhancement of the hepatic parenchyma, which is nonspecific on this arterial phase. Normal morphology. No suspicious lesions. BILIARY: Gallbladder is contracted. No intrahepatic or extrahepatic biliary ductal dilation. PANCREAS: Normal. SPLEEN: Normal. ADRENALS: Normal. KIDNEYS: The kidneys are normal in size with symmetric enhancement. No hydronephrosis or kidney stones. GENITOURINARY: The ureters are nondilated throughout. The bladder is non-distended and poorly assessed with no gross abnormalities. The uterus is unremarkable. No adnexal masses. GASTROINTESTINAL: The distal esophagus is unremarkable. The stomach is partially distended and grossly unremarkable. The small and large bowel loops demonstrate no signsof obstruction or inflammation. No evidence of diverticulosis. The appendix is normal. VASCULAR: Refer to ANGIOGRAPHIC section above. LYMPH NODES: No enlarged lymph nodes. MESENTERY: Grossly unremarkable with no free air or loculated fluid collections. SOFT TISSUES: Unremarkable. BONES: No acute osseous findings. Bilateral neural foraminal narrowing at the L5-S1 level. Moderate L5- S1 disc degenerative disease. IMPRESSION: No acute vascular/aortic findings throughout the chest, abdomen, and pelvis. There is diffuse heterogeneous enhancement of the hepatic parenchyma, [facility] [place] NAME: EMMIE TIMMONS [address] [place] [address] PHYS: Chris Masters [place], [place] [address] : 1970 AGE:52 SEX: F LOC: BARRY PHONE #: [phone] EXAM DATE: 03/29/2023 STATUS: REG ER FAX #: [phone] RAD #: D/C DT PAGE 2 Signed Report (CONTINUED) Patient Name: EMMIE TIMMONS Unit No: [id number] EXAMS: CPT CODE: [id number] CTA ABDOMEN 29778 (Continued) which is a nonspecific finding on arterial phase. This may represent transient hepatic attenuation difference versus underlying inflammation/hepatitis. at 1305 Reported and signed by: Ranjith Harrison DO CC: Chris Yoder DO Dictated Date/Time: 03/29/2023 (1305) Technologist: VIKAS BANDA CTDI: DLP: Trnscrpt: 03/29/2023 (1305) [email or web address] BRYSON Ojeda NAME: ASHLEYEMMIE [address] [place] [address] PHYS: MARY Zuniga [place] [address] : 1970 AGE: 52 SEX: F LOC: B.ERS PHONE #: [phone] EXAM DATE: 03/29/2023 STATUS: REG ER FAX #: [phone] RAD #: D/C DT PAGE 3 Signed Report Patient Name: EMMIE TIMMONS Unit No: [id number] EXAMS: CPT CODE: [id number] CTA ABDOMEN 51582 (Continued) Orig Print D/T: S: 03/29/2023 (1308) BRYSON Ojeda NAME: TIMMONSEMMIE [address] [place] [address] PHYS: MARY YoderChris Collado [place] [address] : 1970 AGE: 52 SEX: F LOC: B.ERS PHONE #: [phone] EXAMDATE: 03/29/2023 STATUS: REG ER FAX #: [phone] RAD #: D/C DT PAGE 4 Signed Report - CT ANGIO [id number] 13:05:00 [facility] FRANKIE CONROEName: EMMIE TIMMONS : 1970 Sex: F Patient Name: EMMIE TIMMONS Unit No: [id number] EXAMS: CPT CODE: [id number] CT ANGIO CHEST [address]12 EXAM: - CTA PELVIS, - CT ANGIO CHEST, - CTA ABDOMEN LOCATION: H65 TECHNIQUE: Serial axial CT images were obtained from the supraclavicular region to the proximal femurs with the administration of intravenous contrast. Oral contrast was not administered. Phase(s): Arterial Reformats: Coronal and sagittal MIPS This exam was performed according to our departmental dose- optimization program, which includes automated exposure control, adjustment of the mA and/or kV according to patient size and/or use of iterative reconstruction technique. Unless otherwise specified, incidental findings do not require dedicated imaging follow-up. COMPARISON: MRCP 08/01/2022, CT abdomen pelvis 07/31/2022 HISTORY: abd pain with radiation to back ANGIOGRAPHIC FINDINGS: THORACIC AORTA: Nonaneurysmal with no significant atherosclerosis or luminal narrowing. No intramural hematoma, penetrating ulcer, or dissection. ARCH VESSELS:Well-opacified throughout. ABDOMINAL AORTA: Mild calcifications of the infrarenal portion. Nonaneurysmal throughout with no evidence of acute injury/dissection. AORTIC BRANCHES: The celiac axis, superior and inferior mesenteric arteries, and bilateral renal arteries all appear well opacified throughout. No incidental aneurysms identified. ILIOFEMORAL BRANCHES: Right: Unremarkable. Left: Unremarkable. NON-ANGIOGRAPHIC FINDINGS: CHEST THYROID: Normal. LYMPHADENOPATHY: There is no supraclavicular or axillary lymphadenopathy. No enlarged mediastinal or hilar lymph nodes. AIRWAYS: Unremarkable. LUNGS/PLEURA: No ground glass opacities or consolidations. No pleural [facility] [place] NAME: EMMIE TIMMONS[address] [place] [address] Blvd PHYS: [place], [place] [address] : 1970 AGE: 52 SEX: F LOC: BARRY PHONE #: [phone] EXAM DATE: 03/29/2023 STATUS: REG ER FAX#: [phone] RAD #: D/C DT PAGE 1 Signed Report (CONTINUED) Patient Name: EMMIE TIMMONS Unit No: [id number] EXAMS: CPT CODE: [id number] CT ANGIO CHEST 86798 (Continued) effusion, pleural based masses, or calcifications. No suspicious pulmonary nodules. MEDIASTINUM: The heart and pericardium are u nremarkable. No coronary artery calcifications. The pulmonary trunk is normal in size. The esophagus is grossly unremarkable. ABDOMEN-PELVIS LIVER: There is diffuse heterogeneous enhancement of the hepatic parenchyma, which is nonspecific on this arterial phase. Normal morphology. No suspicious lesions. BILIARY: Gallbladder is contracted. No intrahepatic or extrahepatic biliary ductal dilation. PANCREAS: Normal. SPLEEN: Normal. ADRENALS: Normal. KIDNEYS: The kidneys are normal in size with symmetric enhancement. No hydronephrosis or kidney stones. GENITOURINARY: The ureters are nondilated throughout. The bladder is non-distended and poorly assessed with no gross abnormalities. The uterus is unremarkable. No adnexal masses. GASTROINTESTINAL: The distal esophagus is unremarkable. The stomach is partially distended and grossly unremarkable. The small and large bowel loops demonstrate no signs of obstruction or inflammation. No evidence of diverticulosis. The appendix is normal. VASCULAR:Refer to ANGIOGRAPHIC section above. LYMPH NODES: No enlarged lymph nodes. MESENTERY: Grossly unremarkable with no free air or loculated fluid collections. SOFT TISSUES: Unremarkable. BONES: No acuteosseous findings. Bilateral neural foraminal narrowing at the L5-S1 level. Moderate L5-S1 disc degenerative disease. IMPRESSION: No acute vascular/aortic findings throughout the chest, abdomen, and pelvis. There is diffuse heterogeneous enhancement of the hepatic parenchyma, [facility] [place] NAME: EMMIE TIMMONS [address] [place] [address] PHYS: Chris Masters [place], [place] [address] : 1970 AGE: 52 SEX: F LOC: B.ERS PHONE #: [phone] EXAM DATE: 03/29/2023 STATUS: REG ER FAX #: [phone] RAD #: D/C DT PAGE 2 Signed Report (CONTINUED) Patient Name: Ruddy TIMMONSit No: [id number] EXAMS: CPT CODE: [id number] CT ANGIO CHEST [address]3219 (Continued) which is a nonspecific finding on arterial phase. This may represent transient hepatic attenuation difference versus underlying inflammation/hepatitis. at 1305 Reported and signed by: Ranjith Harrison DO CC: Chris Yoder DO Dictated Date/Time: 03/29/2023 (1305) Technologist: VIKAS BANDA CTDI: DLP: Trnscrpt: 03/29/2023 (1305) [email or web address] BRYSON Ojeda NAME: IR[address] PHYS: MARY Zuniga Chris Yoder [place] [address] : 1970 AGE: 52 SEX: F LOC: B.ERS PHONE #: [phone] EXAM DATE: 03/29/2023 STATUS: REG ER FAX #: [phone] RAD #: D/C DT PAGE 3 Signed Report Patient Name: EMMIE TIMMONS Unit No: [id number] EXAMS: CPT CODE: [id number] CT ANGIO CHEST 96668 (Continued) Orig Print D/T: S: 03/29/2023 (1308) BRYSON Ojeda [facility]: [facility] [address] [place] [address] PHYS: MARY MilleryChris Collado [place] [address] : 1970 AGE: 52 SEX: F LOC: B.ERS PHONE #: [phone] EXAM DATE: 03/29/2023 STATUS: REG ER FAX #: [phone] RAD #: D/C DT PAGE 4 Signed Report- CTA [id number] 13:05:00 [facility] EMMIE TIMMONS : 1970 Sex: F Patient Name: EMMIE TIMMONS Unit No: [id number] EXAMS: CPT CODE: [id number] CTA PELVIS 36639 EXAM: - CTA PELVIS, - CT ANGIO CHEST, - CTA ABDOMEN LOCATION: H65 TECHNIQUE: Serial axial CT images were obtained from the supraclavicular region to the proximal femurs with the administration of intravenous contrast. Oral contrast was not administered. Phase(s): Arterial Reformats: Coronal and sagittal MIPS Th is exam was performed according to our departmental dose-optimization program, which includes automated exposure control, adjustment of the mA and/or kV according to patient size and/or use of iterative reconstruction technique. Unless otherwise specified, incidental findings do not require dedicated imaging follow-up. COMPARISON: MRCP 08/01/2022, CT abdomen pelvis 07/31/2022 HISTORY: abd pain with radiation to back ANGIOGRAPHIC FINDINGS: THORACIC AORTA: Nonaneurysmal with no significant atherosclerosis or luminal narrowing. No intramural hematoma, penetrating ulcer, or dissection. ARCH VESSELS:Well-opacified throughout. ABDOMINAL AORTA: Mild calcifications of the infrarenal portion. Nonaneurysmal throughout with no evidence of acute injury/dissection. AORTIC BRANCHES: The celiac axis, superior and inferior mesenteric arteries, and bilateral renal arteries all appear well opacified throughout. No incidental aneurysms identified. ILIOFEMORAL BRANCHES: Right: Unremarkable. Left: Unremarka ble. NON-ANGIOGRAPHIC FINDINGS: CHEST THYROID: Normal. LYMPHADENOPATHY: There is no supraclavicular or axillary lymphadenopathy. No enlarged mediastinal or hilar lymph nodes. AIRWAYS: Unremarkable. LUNGS/PLEURA: No ground glass opacities or consolidations. No pleural [facility] [place] NAME: EMMIE TIMMONS [address] [place] [address] Blvd PHYS: Chris Masters DO [place], [place] [address] : 1970 AGE: 52 SEX: F LOC: BARRY PHONE #: [phone] EXAM DATE: 03/29/2023 STATUS: REG ER FAX #: [phone] RAD #: D/C DT PAGE 1 Signed Report (CONTINUED) Patient Name: EMMIE TIMMONS Unit No: [id number] EXAMS: CPT CODE: [id number] CTA PELVIS 52189 (Continued) effusion, pleural based masses, or calcifications. No suspicious pulmonary nodules. MEDIASTINUM: The heart and pericardium are unremarkable. No coronary artery calcifications. The pulmonary trunk is normal in size. The esophagus is grossly unremarkable. ABDOMEN-PELVIS LIVER: There is diffuse heterogeneous enhancement of the hepatic parenchyma, which is nonspecific on this arterial phase. Normal morphology. No suspicious lesions. BILIARY: Gallbladder is contracted. No intrahepatic or extrahepatic biliary ductal dilation. PANCREAS: Normal. SPLEEN: Normal. ADRENALS: Normal. KIDNEYS: The kidneys are normal in size with symmetric enhancement. No hydronephrosis or kidney stones. GENITOURINARY: The ureters are nondilated throughout. The bladder is non-distended and poorly assessed with no gross abnormalities. The uterus isunremarkable. No adnexal masses. GASTROINTESTINAL: The distal esophagus is unremarkable. The stomach is partially distended and grossly unremarkable. The small and large bowel loops demonstrate no signs of obstruction or inflammation. No evidence of diverticulosis. The appendix is normal. VASCULAR:Refer to ANGIOGRAPHIC section above. LYMPH NODES: No enlarged lymph nodes. MESENTERY: Grossly unremarkable with no free air or loculated fluid collections. SOFT TISSUES: Unremarkable. BONES: No acuteosseous findings. Bilateral neural foraminal narrowing at the L5-S1 level. Moderate L5- S1 disc degenerative disease. IMPRESSION: No acute vascular/aortic findings throughout the chest, abdomen, and pelvis. There is diffuse heterogeneous enhancement of the hepatic parenchyma, [facility] [place] NAME: EMMIE TIMMONS [address] [place] [address] PHYS: Chris Masters [place], [place] [address] : 1970 AGE: 52 SEX: F LOC: BHARSHAD PHONE #: [phone] EXAM DATE: 03/29/2023 STATUS: REG ER FAX #: [phone] RAD #: D/C DT PAGE 2 Signed Report (CONTINUED) Patient Name: EMMIE TIMMONS Unit No: [id number] EXAMS: CPT CODE: [id number] CTA PELVIS 52712 (Continued) which is a nonspecificfinding on arterial phase. This may represent transient hepatic attenuation difference versus underlying inflammation/hepatitis. at 1305 Reported and signed by: Ranjith Harrison DO CC: Chris Yoder DO Dictated Date/Time: 03/29/2023 (1305) Technologist: VIKAS BANDA CTDI: DLP: Trnscrpt: 03/29/2023 (1305) [email or web address] BRYSON Ojeda NAME: [address] PHYS: [place] [address] : 1970 AGE: 52 SEX: F LOC: B.ERS PHONE #: [phone] EXAM DATE: 03/29/2023 STATUS:REG ER FAX #: [phone] RAD #: D/C DT PAGE 3 Signed Report Patient Name: EMMIE TIMMONS Unit No: [id number] EXAMS: CPT CODE: [id number] CTA PELVIS 60172 (Continued) Orig Print D/T: S: 03/29/2023 (1308) BRYSON Ojeda NAME: [address] PHYS: [place] [address] : 1970 AGE: 52 SEX: F LOC: B.ERS PHONE #: [phone] EXAMDATE: 03/29/2023 STATUS: REG ER FAX #: [phone] RAD #: D/C DT PAGE 4 Signed ReportUA RFLX MICR CULT IF [id number] 11:59:00* Test Item Value Reference Range Interpretation Comme nts UA COLOR (test code = COLU) LIGHT-YELLOW DESCRIPT YELLOW UA APPEARANCE (test code = APPU) CLEAR DESCRIPT CLEAR UA GLUCOSE DIPSTICK (test code = DGLUU) NORMAL (0) mg/dL See_Comment [Automated message] The system which generated this result transmitted reference range: 0 (NORMAL). The reference range was not used to interpret this result as normal/abnormal. UA BILIRUBIN DIPSTICK (test code = BILU) NEGATIVE (0.0) mg/dL See_Comment [Automated message] The system which generated this result transmitted reference range: (NEG) 0. The reference range was not used to interpret this result as normal/abnormal. UA KETONE DIPSTICK (test code = KETU) NEGATIVE (0) mg/dL See_Comment [Automated message] The system which generated this result transmitted reference range: (NEG) 0. The reference range was not used to interpret this result as normal/abnormal. UA SPECIFIC GRAVITY (test code = SGU) >1.050 SG 1.001-1.035 A UA BLOOD DIPSTICK (test code = NGUYEN) NEGATIVE (0.00) mg/dL See_Comment [Automated message] The system which generated this result transmitted reference range: 0 (NEG). The reference range was not used to interpret this result as normal/abnormal. UA PH DIPSTICK (test code = ANI) 6.5 pH UNITS 4.6-8.0 UA PROTEIN DIPSTICK (test code = PROU) 10 (TRACE) mg/dL See_Comment A [Automated message] The system which generated this result transmitted reference range: (NEG) <30. The reference range was not used to interpret this result as normal/abnormal. UA UROBILINIOGEN DIPSTICK (test code = URO) NORMAL (0) mg/Dl See_Comment [Automated message] The system which generated this result transmitted reference range: (NORM)<2.0. The reference range was not used to interpret this result as normal/abnormal. UA NITRITE DIPSTICK (test code = KASHIF) NEGATIVE (0) SCREEN NEG UA LEUKOCYTE ESTERASE DIPSTICK (test code = LEUU) 75 Leuk/mcL See_Comment A [Automated message] The system which generated this result transmitted reference range: (NEG) 0. The reference range was not used to interpret this result as normal/abnormal. UA COMMENT (test code = COMU) SPECIMEN COMMENT NoteSPEC SpecComment UA WBC (test code = WBCU) 0-3 #WBC/HPF 0-3 UA RBC (test code = RBCU) 0-3 #RBC/HPF 0-3 UA HYALINE CAST (test code = HYALU) 5-10 #/LPF 0-3 A UA MUCUS (test code = MUCU) RARE /LPF NONE UA CULTURE NEEDED? (test code = UACULT) Crit NOTmet CULT-N/A Criteria Cult byWBC Indication for culture: Flank PainUA DESCRIPTION: CLEAN CATCHBASIC METABOLIC [id number] 11:28:00* Test Item Value Reference Range Interpretation Comme nts SODIUM (test code = NA) 136.0 mmol/L 133-144 N POTASSIUM (test code = K) 2.9 mmol/L 3.5-5.1 L CHLORIDE (test code = CL) 101 mmol/L 95-105 N CARBON DIOXIDE (test code = CO2) 29 mmol/L 21-32 N ANION GAP (test code = GAP) 6.0 GAP calc 4.0-15.0 N GLUCOSE (test code = GLU) 151 MG/DL 70-110 H BLOOD UREA NITROGEN (test code = BUN) 19 MG/DL 7-18 H GLOMERULAR FILTRATION RATE (test code = GFR) 63 estGFR >60 The Glomerular Filtration Rate is a calculated parameterbased on serum Creatinine, patient age and sex. GFR valuesless than 60 mL/min/1.73 square meters are indicative ofChronic Kidney Disease. Values less than 15 mL/min/1.73square meters indicate Kidney failure. The calculation forGFR is based on the CKD-EPI (202) calculation. This formulais race indifferent and is the recommended formula for GFRby the National Kidney Foundation for Adults.The GFR will not calculate if the sex is unknown or if thepatient's age is <18 years. CREATININE (test code = CREAT) 1.07 MG/DL 0.55-1.30 N Results may be depressed if patient is takingN-Acetylcysteine (NAC) and Metamizole (Dipyrone). CALCIUM (test code = CA) 10.0 MG/DL 8.5-10.1 N INDEX HEMOLYSIS (test code = HEMINDEX) 1 NORMAL <10 MG Index/DL See_Comment [Automated message] The system which generated this result transmitted reference range: 1 NORMAL. The reference range was not used to interpret this result as normal/abnormal. INDEX ICTERIC (test code = ICTINDEX) 1 NORMAL <2 MG Index/DL See_Comment [Automated message] The system which generated this result transmitted reference range: 1 NORMAL. The reference range was not used to interpret this result as normal/abnormal. INDEX LIPEMIA (test code = LIPINDEX) 1 NORMAL <50 MG Index/DL See_Comment [Automated message] The system which generated this result transmitted reference range: 1 NORMAL. The reference range was not used to interpret this result as normal/abnormal. HEPATIC FUNCTION [id number] 11:28:00* Test Item Value Reference Range Interpretation Comme nts TOTAL PROTEIN (test code = PROT) 8.3 G/DL 6.4-8.2 H ALBUMIN (test code = ALB) 4.0 G/DL 3.4-5.0 N BILIRUBIN TOTAL (test code = BILT) 0.40 MG/DL 0.00-1.00 N BILIRUBIN DIRECT (test code = BILD) 0.19 MG/DL 0.00-0.30 N BILIRUBIN INDIRECT (test cod e = BILIND) 0.21 MG/DL 0.2-1.3 N SGOT/AST (test code = AST) 92 Unit/L 15-37 H SGPT/ALT (test code = ALT) 46 Unit/L 12-78 N ALKALINE PHOSPHATASE TOTAL ( test code = ALKP) 91 Unit/L 45-117 N [id number] 11:28:00* Test Item Value Reference Range Interpretation Comme nts LIPASE (test code = LIP) 122 Unit/L 114-286 N HCG [id number] 11:28:00* Test Item Value Reference Range Interpretation Comme [facility] HCG SERUM (test code = HCG) 14 mi-IU/ML 0-3 H HCG RANGES ANANT [facility] NORMAL PREGNANCYPOST LMP 3-4 WEEKS 9 - 130 MIU/ML4-5 WEEKS 75 - 2,600 MIU/ML5-6 WEEKS 850 - 20,800 MIU/ML6-7 WEEKS 4,000 - 100,200 MIU/ML7-12 WEEKS 11,500 - 289,000 MIU/ML12-16 WEEKS 18,300 - 137,000 MIU/ML16-29 WEEKS 1,400 - 53,000 MIU/ML 29-41 WEEKS 940 - 60,000 MIU/ML CBC W/O [id number] 11:11:00* Test Item Value Reference Range Interpretation Comme nts WHITE BLOOD CELL (test code = WBC) 20.1 K/mm3 4.1-12.1 H RED BLOOD CELL (test code = RBC) 4.94 M/mm3 3.8-5.5 N HEMOGLOBIN (test code = HGB) 15.0 G/DL 10.6-15.8 N HEMATOCRIT (test code = HCT) 44.5 % 31.8-47.4 N MEAN CELL VOLUME (test code = MCV) 90.1 fL 80.1-101.1 N MEAN CELL HGB (test code = MCH) 30.4 pg 25.3-35.3 N MEAN CELL HGB CONCETRATION ( test code = MCHC) 33.7 G/DL 32.7-35.1 N RED CELL DISTRIBUTION WIDTH (test code = RDW) 13.5 % 12.2-16.4 N PLATELET COUNT (test code = PLT) 347 K/mm3 155-337 H MEAN PLATELET VOLUME (test c ode = MPV) 9.0 fL 6.8-11.2 N COMPREHENSIVE METABOLIC [id number] 05:09:00* Test Item Value Reference Range Interpretation Comme nts SODIUM (test code = NA) 133.0 mmol/L 133-144 N POTASSIUM (test code = K) 4.2 mmol/L 3.5-5.1 N CHLORIDE (test code = CL) 100 mmol/L 95-105 N CARBON DIOXIDE (test code = CO2) 25 mmol/L 21-32 N ANION GAP (test code = GAP) 8.0 GAP calc 4.0-15.0 N GLUCOSE (test code = GLU) 94 MG/DL 70-110 N BLOOD UREA NITROGEN (test code = BUN) 7 MG/DL 7-18 N GLOMERULAR FILTRATION RATE (test code = GFR) 81 estGFR >60 The estimated glomerular filtration rate is computed usingpatient race, age, sex, and serum creatinine. If any of theneeded data elements are missing the Laboratory can notcompute an estimation of the glomerular filtration rate.The GFR value units = ml/min/1.73 meter squared. EstimatedGFR values above 60 should be interpreted as >60, not anexact number.--- DRUG DOSAGE ALERT --- Drug dosage adjustments utilize different calculationparameter s. CREATININE (test code = CREAT) 0.76 MG/DL 0.55-1.30 N Results may be depressed if patient is takingN-Acetylcystei ne (NAC) and Metamizole (Dipyrone). TOTAL PROTEIN (test code = PROT) 7.2 G/DL 6.4-8.2 N ALBUMIN (test code = ALB) 3.2 G/DL 3.4-5.0 L ALBUMIN/GLOBULIN RATIO (test code = A/G) 0.8 RATIO 1.2-2.2 L CALCIUM (test code = CA) 9.7 MG/DL 8.5-10.1 N BILIRUBIN TOTAL (test code = BILT) 4.10 MG/DL 0.00-1.00 H BILIRUBIN DIRECT (test code = BILD) 2.88 MG/DL 0.00-0.30 H BILIRUBIN INDIRECT (test code = BILIND) 1.22 MG/DL 0.2-1.3 N SGOT/AST (test code = AST) 227 Unit/L 15-37 H SGPT/ALT (test code = ALT) 413 Unit/L 12-78 H ALKALINE PHOSPHATASE TOTAL (test code = ALKP) 477 Unit/L 45-117 H INDEX HEMOLYSIS (test code = HEMINDEX) 4 SMALL 50-200 MG Index/DL See_Comment A [Automated message] The system which generated this result transmitted reference range: 1 NORMAL. The reference range was not used to interpret this result as normal/abnormal. INDEX ICTERIC (test code = ICTINDEX) 2 TRACE 2-5 MG Index/DL See_Comment [Automated message] The system which generated this result transmitted reference range: 1 NORMAL. The reference range was not used to interpret this result as normal/abnormal. INDEX LIPEMIA (test code = LIPINDEX) 1 NORMAL <50 MG Index/DL See_Comment [Automated message] The system which generated this result transmitted reference range: 1 NORMAL. The reference range was not used to interpret this result as normal/abnormal. [id number] 05:03:00* Test Item Value Reference Range Interpretation Comme nts AMYLASE (test code = JAZLYN) 40 Unit/L 25-115 N [id number] 05:03:00* Test Item Value Reference Range Interpretation Comme nts LIPASE (test code = LIP) 120 Unit/L 114-286 N [id number] 04:48:00* Test Item Value Reference Range Interpretation Comme nts AMMONIA (test code = AMM) <10 mcMOL/L 11.0-32.0 L CBC W/AUTO [id number] 04:31:00* Test Item Value Reference Range Interpretation Comme nts WHITE BLOOD CELL (test code = WBC) 8.1 K/mm3 4.1-12.1 N RED BLOOD CELL (test code = RBC) 4.22 M/mm3 3.8-5.5 N HEMOGLOBIN (test code = HGB) 13.4 G/DL 10.6-15.8 N HEMATOCRIT (test code = HCT) 36.8 % 31.8-47.4 N MEAN CELL VOLUME (test code = MCV) 87.2 fL 80.1-101.1 N MEAN CELL HGB (test code = MCH) 31.8 pg 25.3-35.3 N MEAN CELL HGB CONCETRATION ( test code = MCHC) 36.4 G/DL 32.7-35.1 H RED CELL DISTRIBUTION WIDTH (test code = RDW) 15.9 % 12.2-16.4 N RED CELL DISTRIBUTION WIDTH (test code = RDW-SD) 49.3 fL 36.4-46.3 H PLATELET COUNT (test code = PLT) 372 K/mm3 155-337 H MEAN PLATELET VOLUME (test c ode = MPV) 9.8 fL 6.8-11.2 N GRANULOCYTE % (test code = GR%) 73.6 % 37.8-82.6 N IMMATURE GRANULOCYTE % (test code = IG%) 1.0 % 0.0-2.0 N LYMPHOCYTE % (test code = LY%) 12.8 % 14.1-45.4 L MONOCYTE % (test code = MO%) 9.0 % 2.5-11.7 N EOSINOPHIL % (test code = EO%) 2.7 % 0.0-6.2 N BASOPHIL % (test code = BA%) 0.9 % 0.0-2.1 N NUCLEATED RBC % (test code = NRBC%) 0.0 /100WBC% 0.0-1.0 N GRANULOCYTE # (test code = GR#) 5.97 k/mm3 2.0-13.7 N IMMATURE GRANULOCYTE # (test code = IG#) 0.08 K/mm3 0.00-0.03 H LYMPHOCYTE # (test code = LY#) 1.04 K/mm3 0.6-3.8 N MONOCYTE # (test code = MO#) 0.73 K/mm3 0.11-0.59 H EOSINOPHIL # (test code = EO#) 0.22 K/mm3 0.0-0.4 N BASOPHIL # (test code = BA#) 0.07 K/mm3 0.0-0.1 N NUCLEATED RBC # (test code = NRBC#) 0.00 K/mm3 0.0-0.05 N [id number] 05:57:00* Test Item Value Reference Range Interpretation Comme nts AMMONIA (test code = AMM) <10 mcMOL/L 11.0-32.0 L [id number] 05:49:00* Test Item Value Reference Range Interpretation Comme nts LIPASE (test code = LIP) 89 Unit/L 114-286 L COMPREHENSIVE METABOLIC [id number] 05:49:00* Test Item Value Reference Range Interpretation Comme nts SODIUM (test code = NA) 130.0 mmol/L 133-144 L POTASSIUM (test code = K) 3.3 mmol/L 3.5-5.1 L CHLORIDE (test code = CL) 97 mmol/L 95-105 N CARBON DIOXIDE (test code = CO2) 25 mmol/L 21-32 N ANION GAP (test code = GAP) 8.0 GAP calc 4.0-15.0 N GLUCOSE (test code = GLU) 101 MG/DL 70-110 N BLOOD UREA NITROGEN (test code = BUN) 7 MG/DL 7-18 N GLOMERULAR FILTRATION RATE (test code = GFR) 102 estGFR >60 The estimated glomerular filtration rate is computed usingpatient race, age, sex, and serum creatinine. If any of theneeded data elements are missing the Laboratory can notcompute an estimation of the glomerular filtration rate.The GFR value units = ml/min/1.73 meter squared. EstimatedGFR values above 60 should be interpreted as >60, not anexact number.--- DRUG DOSAGE ALERT --- Drug dosage adjustments utilize different calculationparameter s. CREATININE (test code = CREAT) 0.62 MG/DL 0.55-1.30 N Results may be depressed if patient is takingN-Acetylcystei ne (NAC) and Metamizole (Dipyrone). TOTAL PROTEIN (test code = PROT) 7.2 G/DL 6.4-8.2 N ALBUMIN (test code = ALB) 3.2 G/DL 3.4-5.0 L ALBUMIN/GLOBULIN RATIO (test code = A/G) 0.8 RATIO 1.2-2.2 L CALCIUM (test code = CA) 9.9 MG/DL 8.5-10.1 N BILIRUBIN TOTAL (test code = BILT) 4.91 MG/DL 0.00-1.00 H BILIRUBIN DIRECT (test code = BILD) 3.78 MG/DL 0.00-0.30 H BILIRUBIN INDIRECT (test code = BILIND) 1.13 MG/DL 0.2-1.3 N SGOT/AST (test code = AST) 218 Unit/L 15-37 H SGPT/ALT (test code = ALT) 460 Unit/L 12-78 H ALKALINE PHOSPHATASE TOTAL (test code = ALKP) 533 Unit/L 45-117 H INDEX HEMOLYSIS (test code = HEMINDEX) 2 TRACE 10-25 MG Index/DL See_Comment [Automated message] The system which generated this result transmitted reference range: 1 NORMAL. The reference range was not used to interpret this result as normal/abnormal. INDEX ICTERIC (test code = ICTINDEX) 3 SMALL 5-10 MG Index/DL See_Comment [Automated message] The system which generated this result transmitted reference range: 1 NORMAL. The reference range was not used to interpret this result as normal/abnormal. INDEX LIPEMIA (test code = LIPINDEX) 1 NORMAL <50 MG Index/DL See_Comment [Automated message] The system which generated this result transmitted reference range: 1 NORMAL. The reference range was not used to interpret this result as normal/abnormal. [id number] 05:49:00* Test Item Value Reference Range Interpretation Comme nts AMYLASE (test code = JAZLYN) 34 Unit/L 25-115 N CBC W/AUTO [id number] 05:22:00* Test Item Value Reference Range Interpretation Comme nts WHITE BLOOD CELL (test code = WBC) 10.1 K/mm3 4.1-12.1 N RED BLOOD CELL (test code = RBC) 4.30 M/mm3 3.8-5.5 N HEMOGLOBIN (test code = HGB) 13.4 G/DL 10.6-15.8 N HEMATOCRIT (test code = HCT) 37.6 % 31.8-47.4 N MEAN CELL VOLUME (test code = MCV) 87.4 fL 80.1-101.1 N MEAN CELL HGB (test code = MCH) 31.2 pg 25.3-35.3 N MEAN CELL HGB CONCETRATION ( test code = MCHC) 35.6 G/DL 32.7-35.1 H RED CELL DISTRIBUTION WIDTH (test code = RDW) 15.4 % 12.2-16.4 N RED CELL DISTRIBUTION WIDTH (test code = RDW-SD) 48.1 fL 36.4-46.3 H PLATELET COUNT (test code = PLT) 321 K/mm3 155-337 N MEAN PLATELET VOLUME (test c ode = MPV) 10.0 fL 6.8-11.2 N GRANULOCYTE % (test code = GR%) 80.6 % 37.8-82.6 N IMMATURE GRANULOCYTE % (test code = IG%) 0.7 % 0.0-2.0 N LYMPHOCYTE % (test code = LY%) 9.9 % 14.1-45.4 L MONOCYTE % (test code = MO%) 7.0 % 2.5-11.7 N EOSINOPHIL % (test code = EO%) 1.0 % 0.0-6.2 N BASOPHIL % (test code = BA%) 0.8 % 0.0-2.1 N NUCLEATED RBC % (test code = NRBC%) 0.0 /100WBC% 0.0-1.0 N GRANULOCYTE # (test code = GR#) 8.16 k/mm3 2.0-13.7 N IMMATURE GRANULOCYTE # (test code = IG#) 0.07 K/mm3 0.00-0.03 H LYMPHOCYTE # (test code = LY#) 1.00 K/mm3 0.6-3.8 N MONOCYTE # (test code = MO#) 0.71 K/mm3 0.11-0.59 H EOSINOPHIL # (test code = EO#) 0.10 K/mm3 0.0-0.4 N BASOPHIL # (test code = BA#) 0.08 K/mm3 0.0-0.1 N NUCLEATED RBC # (test code = NRBC#) 0.00 K/mm3 0.0-0.05 N COMPREHENSIVE METABOLIC [id number] 06:47:00* Test Item Value Reference Range Interpretation Comme nts SODIUM (test code = NA) 135.0 mmol/L 133-144 N POTASSIUM (test code = K) 3.3 mmol/L 3.5-5.1 L CHLORIDE (test code = CL) 101 mmol/L 95-105 N CARBON DIOXIDE (test code = CO2) 27 mmol/L 21-32 N ANION GAP (test code = GAP) 7.0 GAP calc 4.0-15.0 N GLUCOSE (test code = GLU) 90 MG/DL 70-110 N BLOOD UREA NITROGEN (test code = BUN) 9 MG/DL 7-18 N GLOMERULAR FILTRATION RATE (test code = GFR) 92 estGFR >60 The estimated glomerular filtration rate is computed usingpatient race, age, sex, and serum creatinine. If any of theneeded data elements are missing the Laboratory can notcompute an estimation of the glomerular filtration rate.The GFR value units = ml/min/1.73 meter squared. EstimatedGFR values above 60 should be interpreted as >60, not anexact number.--- DRUG DOSAGE ALERT --- Drug dosage adjustments utilize different calculationparameter s. CREATININE (test code = CREAT) 0.68 MG/DL 0.55-1.30 N Results may be depressed if patient is takingN-Acetylcystei ne (NAC) and Metamizole (Dipyrone). TOTAL PROTEIN (test code = PROT) 6.8 G/DL 6.4-8.2 N ALBUMIN (test code = ALB) 3.1 G/DL 3.4-5.0 L ALBUMIN/GLOBULIN RATIO (test code = A/G) 0.8 RATIO 1.2-2.2 L CALCIUM (test code = CA) 9.5 MG/DL 8.5-10.1 N BILIRUBIN TOTAL (test code = BILT) 6.22 MG/DL 0.00-1.00 H BILIRUBIN DIRECT (test code = BILD) 5.04 MG/DL 0.00-0.30 H BILIRUBIN INDIRECT (test code = BILIND) 1.18 MG/DL 0.2-1.3 N SGOT/AST (test code = AST) 273 Unit/L 15-37 H SGPT/ALT (test code = ALT) 500 Unit/L 12-78 H ALKALINE PHOSPHATASE TOTAL (test code = ALKP) 545 Unit/L 45-117 H INDEX HEMOLYSIS (test code = HEMINDEX) 2 TRACE 10-25 MG Index/DL See_Comment [Automated message] The system which generated this result transmitted reference range: 1 NORMAL. The reference range was not used to interpret this result as normal/abnormal. INDEX ICTERIC (test code = ICTINDEX) 3 SMALL 5-10 MG Index/DL See_Comment [Automated message] The system which generated this result transmitted reference range: 1 NORMAL. The reference range was not used to interpret this result as normal/abnormal. INDEX LIPEMIA (test code = LIPINDEX) 1 NORMAL <50 MG Index/DL See_Comment [Automated message] The system which generated this result transmitted reference range: 1 NORMAL. The reference range was not used to interpret this result as normal/abnormal. CBC W/AUTO [id number] 06:34:00* Test Item Value Reference Range Interpretation Comme nts WHITE BLOOD CELL (test code = WBC) 7.7 K/mm3 4.1-12.1 N RED BLOOD CELL (test code = RBC) 4.06 M/mm3 3.8-5.5 N HEMOGLOBIN (test code = HGB) 12.7 G/DL 10.6-15.8 N HEMATOCRIT (test code = HCT) 35.2 % 31.8-47.4 N MEAN CELL VOLUME (test code = MCV) 86.7 fL 80.1-101.1 N MEAN CELL HGB (test code = MCH) 31.3 pg 25.3-35.3 N MEAN CELL HGB CONCETRATION ( test code = MCHC) 36.1 G/DL 32.7-35.1 H RED CELL DISTRIBUTION WIDTH (test code = RDW) 15.5 % 12.2-16.4 N RED CELL DISTRIBUTION WIDTH (test code = RDW-SD) 48.3 fL 36.4-46.3 H PLATELET COUNT (test code = PLT) 280 K/mm3 155-337 N MEAN PLATELET VOLUME (test c ode = MPV) 10.3 fL 6.8-11.2 N GRANULOCYTE % (test code = GR%) 71.2 % 37.8-82.6 N IMMATURE GRANULOCYTE % (test code = IG%) 0.7 % 0.0-2.0 N LYMPHOCYTE % (test code = LY%) 14.5 % 14.1-45.4 N MONOCYTE % (test code = MO%) 9.6 % 2.5-11.7 N EOSINOPHIL % (test code = EO%) 3.0 % 0.0-6.2 N BASOPHIL % (test code = BA%) 1.0 % 0.0-2.1 N NUCLEATED RBC % (test code = NRBC%) 0.0 /100WBC% 0.0-1.0 N GRANULOCYTE # (test code = GR#) 5.46 k/mm3 2.0-13.7 N IMMATURE GRANULOCYTE # (test code = IG#) 0.05 K/mm3 0.00-0.03 H LYMPHOCYTE # (test code = LY#) 1.11 K/mm3 0.6-3.8 N MONOCYTE # (test code = MO#) 0.74 K/mm3 0.11-0.59 H EOSINOPHIL # (test code = EO#) 0.23 K/mm3 0.0-0.4 N BASOPHIL # (test code = BA#) 0.08 K/mm3 0.0-0.1 N NUCLEATED RBC # (test code = NRBC#) 0.00 K/mm3 0.0-0.05 N - MRI [id number] 10:11:00 [facility] : 1970 Sex: F FAX: Jacob Dorsey MD [phone] [place]: E St: [facility] FAX: Maria Guadalupe Harris MD Patient Name: EMMIE TIMMONS Unit No: [id number]: CPT CODE: [id number] MRI MRCP [id number] EXAM: - MRI MRCP HISTORY: Right quadrant pain TECHNIQUE: Multiplanar multisequence MR imaging was performed of the abdomen utilizing MRCP protocol. Rotational image data as well as 3-D volume rendered images are provided. COMPARISON: CT and ultrasound performed the previous day FINDINGS: The liver has a normal noncontrast MR appearance. The gallbladder is somewhat better distended on today's examination. There is gallbladder wall thickening of up to 7 mm noted in what appears to be a trace amount of pericholecystic fluid. No stones are identified andthe findings may reflect a calculus cholecystitis. The common bile duct is normal in course and caliber, measuring up to 4 mm. There is no evidence of intraluminal filling defect, stricture or other abnormality of the bile ducts. The spleen, pancreas, adrenal glands and kidneys appear normal. Thereis no free fluid or lymphadenopathy. The vessels and bowel are normal. No obvious abnormalities areseen in the lung bases. Mild degenerative changes are noted in the lumbar spine. IMPRESSION: 1. Thickened gallbladder wall with a trace amount of pericholecystic fluid, findings which may reflect underlying acalculous cholecystitis. There is no biliary dilatation at 1011 Reported and signed by: Mila Leigh MD CC: Jacob Tristan MD; Maria Guadalupe Harris MD Dictated Date/Time: 08/01/2022 (1011)Technologist: KAVEH MAURICE Transcribed Date/Time: 08/01/2022 (1011) By: [email or web address] Orig Print D/T: S: 08/01/2022 (1014) [facility] Augie NAME: EMMIE TIMMONS [address] [place] [address] PHYS: [place], [place] [address] : 1970 AGE: 51 SEX: F LOC: B.427 W PHONE #: [phone] EXAM DATE: 08/01/2022 STATUS: ADM IN FAX #: [phone] RAD NO: DC Dt: PAGE 1 Signed ReportAB HEPATITIS A [id number] 08:40:00* Test Item Value Reference Range Interpretation Comme nts AB HEPATITIS A IGM (test code = HAVMAB) NonReactive SCREEN Nonreactive AG HEPATITIS B [id number] 08:40:00* Test Item Value Reference Range Interpretation Comme nts AG HEPATITIS B SURFACE (test code = HBSAG) NEG-NONREAC SCREEN Nonreactive AB HEPATITIS B CORE [id number] 08:40:00* Test Item Value Reference Range Interpretation Comme nts AB HEPATITIS B CORE IGM (test code = HBCMAB) NonReactive SCREEN Nonreactive AB HEPATITIS [id number] 08:40:00* Test Item Value Reference Range Interpretation Comme nts AB HEPATITIS C (test code = HCVAB) NR SCREEN Nonreactive CBC W/AUTO [id number] 06:24:00* Test Item Value Reference Range Interpretation Comme nts WHITE BLOOD CELL (test code = WBC) 6.7 K/mm3 4.1-12.1 N RED BLOOD CELL (test code = RBC) 4.28 M/mm3 3.8-5.5 N HEMOGLOBIN (test code = HGB) 13.4 G/DL 10.6-15.8 N HEMATOCRIT (test code = HCT) 37.7 % 31.8-47.4 N MEAN CELL VOLUME (test code = MCV) 88.1 fL 80.1-101.1 N MEAN CELL HGB (test code = MCH) 31.3 pg 25.3-35.3 N MEAN CELL HGB CONCETRATION ( test code = MCHC) 35.5 G/DL 32.7-35.1 H RED CELL DISTRIBUTION WIDTH (test code = RDW) 15.4 % 12.2-16.4 N RED CELL DISTRIBUTION WIDTH (test code = RDW-SD) 48.8 fL 36.4-46.3 H PLATELET COUNT (test code = PLT) 288 K/mm3 155-337 N MEAN PLATELET VOLUME (test c ode = MPV) 9.9 fL 6.8-11.2 N GRANULOCYTE % (test code = GR%) 65.1 % 37.8-82.6 N IMMATURE GRANULOCYTE % (test code = IG%) 0.6 % 0.0-2.0 N LYMPHOCYTE % (test code = LY%) 18.2 % 14.1-45.4 N MONOCYTE % (test code = MO%) 10.5 % 2.5-11.7 N EOSINOPHIL % (test code = EO%) 4.2 % 0.0-6.2 N BASOPHIL % (test code = BA%) 1.4 % 0.0-2.1 N NUCLEATED RBC % (test code = NRBC%) 0.0 /100WBC% 0.0-1.0 N GRANULOCYTE # (test code = GR#) 4.34 k/mm3 2.0-13.7 N IMMATURE GRANULOCYTE # (test code = IG#) 0.04 K/mm3 0.00-0.03 H LYMPHOCYTE # (test code = LY#) 1.21 K/mm3 0.6-3.8 N MONOCYTE # (test code = MO#) 0.70 K/mm3 0.11-0.59 H EOSINOPHIL # (test code = EO#) 0.28 K/mm3 0.0-0.4 N BASOPHIL # (test code = BA#) 0.09 K/mm3 0.0-0.1 N NUCLEATED RBC # (test code = NRBC#) 0.00 K/mm3 0.0-0.05 N SED [id number] 06:24:00* Test Item Value Reference Range Interpretation Comme nts SED RATE (test code = SEDW) 24 mm/hr 0-20 H COMPREHENSIVE METABOLIC [id number] 05:56:00* Test Item Value Reference Range Interpretation Comme nts SODIUM (test code = NA) 135.0 mmol/L 133-144 N POTASSIUM (test code = K) 3.8 mmol/L 3.5-5.1 N CHLORIDE (test code = CL) 104 mmol/L 95-105 N CARBON DIOXIDE (test code = CO2) 26 mmol/L 21-32 N ANION GAP (test code = GAP) 5.0 GAP calc 4.0-15.0 N GLUCOSE (test code = GLU) 80 MG/DL 70-110 N BLOOD UREA NITROGEN (test code = BUN) 12 MG/DL 7-18 N GLOMERULAR FILTRATION RATE (test code = GFR) 94 estGFR >60 The estimated glomerular filtration rate is computed usingpatient race, age, sex, and serum creatinine. If any of theneeded data elements are missing the Laboratory can notcompute an estimation of the glomerular filtration rate.The GFR value units = ml/min/1.73 meter squared. EstimatedGFR values above 60 should be interpreted as >60, not anexact number.--- DRUG DOSAGE ALERT --- Drug dosage adjustments utilize different calculationparameter s. CREATININE (test code = CREAT) 0.67 MG/DL 0.55-1.30 N Results may be depressed if patient is takingN-Acetylcystei ne (NAC) and Metamizole (Dipyrone). TOTAL PROTEIN (test code = PROT) 7.0 G/DL 6.4-8.2 N ALBUMIN (test code = ALB) 3.2 G/DL 3.4-5.0 L ALBUMIN/GLOBULIN RATIO (test code = A/G) 0.8 RATIO 1.2-2.2 L CALCIUM (test code = CA) 9.8 MG/DL 8.5-10.1 N BILIRUBIN TOTAL (test code = BILT) 6.04 MG/DL 0.00-1.00 H BILIRUBIN DIRECT (test code = BILD) 5.09 MG/DL 0.00-0.30 H BILIRUBIN INDIRECT (test code = BILIND) 0.95 MG/DL 0.2-1.3 N SGOT/AST (test code = AST) 362 Unit/L 15-37 H SGPT/ALT (test code = ALT) 580 Unit/L 12-78 H ALKALINE PHOSPHATASE TOTAL (test code = ALKP) 541 Unit/L 45-117 H INDEX HEMOLYSIS (test code = HEMINDEX) 2 TRACE 10-25 MG Index/DL See_Comment [Automated message] The system which generated this result transmitted reference range: 1 NORMAL. The reference range was not used to interpret this result as normal/abnormal. INDEX ICTERIC (test code = ICTINDEX) 3 SMALL 5-10 MG Index/DL See_Comment [Automated message] The system which generated this result transmitted reference range: 1 NORMAL. The reference range was not used to interpret this result as normal/abnormal. INDEX LIPEMIA (test code = LIPINDEX) 1 NORMAL <50 MG Index/DL See_Comment [Automated message] The system which generated this result transmitted reference range: 1 NORMAL. The reference range was not used to interpret this result as normal/abnormal. [id number] 05:56:00* Test Item Value Reference Range Interpretation Comme nts MAGNESIUM (test code = MAG) 1.9 MG/DL 1.6-2.6 N UA RFLX MICR CULT IF [id number] 18:35:00* Test Item Value Reference Range Interpretation Comme nts UA COLOR (test code = COLU) DARK-YELLOW DESCRIPT YELLOW UA APPEARANCE (test code = APPU) CLEAR DESCRIPT CLEAR UA GLUCOSE DIPSTICK (test code = DGLUU) NORMAL (0) mg/dL See_Comment [Automated message] The system which generated this result transmitted reference range: 0 (NORMAL). The reference range was not used to interpret this result as normal/abnormal. UA BILIRUBIN DIPSTICK (test code = BILU) 3.0 (2+) mg/dL See_Comment A [Automated message] The system which generated this result transmitted reference range: (NEG) 0. The reference range was not used to interpret this result as normal/abnormal. UA KETONE DIPSTICK (test code = KETU) NEGATIVE (0) mg/dL See_Comment [Automated message] The system which generated this result transmitted reference range: (NEG) 0. The reference range was not used to interpret this result as normal/abnormal. UA SPECIFIC GRAVITY (test code = SGU) 1.013 SG 1.001-1.035 UA BLOOD DIPSTICK (test code = NGUYEN) 0.10 (1+) mg/dL See_Comment A [Automated message] The system which generated this result transmitted reference range: 0 (NEG). The reference range was not used to interpret this result as normal/abnormal. UA PH DIPSTICK (test code = ANI) 6.0 pH UNITS 4.6-8.0 UA PROTEIN DIPSTICK (test code = PROU) NEGATIVE (0) mg/dL See_Comment [Automated message] The system which generated this result transmitted reference range: <30 (1+). The reference range was not used to interpret this result as normal/abnormal. UA UROBILINIOGEN DIPSTICK (test code = URO) NORMAL (0) mg/Dl See_Comment [Automated message] The system which generated this result transmitted reference range: <2.0 (1+). The reference range was not used to interpret this result as normal/abnormal. UA NITRITE DIPSTICK (test code = KASHIF) NEGATIVE (0) SCREEN NEG UA LEUKOCYTE ESTERASE DIPSTICK (test code = LEUU) NEGATIVE (0) Leuk/mcL See_Comment [Automated message] The system which generated this result transmitted reference range: (NEG) 0. The reference range was not used to interpret this result as normal/abnormal. UA COMMENT (test code = COMU) CLEAN CATCH SPEC NoteSPEC SpecComment UA WBC (test code = WBCU) 0-3 #WBC/HPF 0-3 UA RBC (test code = RBCU) 3-5 #RBC/HPF 0-3 UA SQUAMOUS CELLS (test code = SQU) RARE >0 /UL NONE-SQepi UA MUCUS (test code = MUCU) RARE /LPF NONE UA CULTURE NEEDED? (test code = UACULT) Crit NOTmet CULT-N/A Criteria Cult byW Indication for culture: RiskForSepsis-no oth srcUR HCG [id number] 18:35:00* Test Item Value Reference Range Interpretation Comme nts UR HCG QUAL (test code = HCGQLU) NEGATIVE NEG Very dilute urin es with a low specific gravity may notcontain field marketing representative levels of hCG. Indication for culture: RiskForSepsis-no oth src- CT ABD PELVIS [id number] 17:03:00[facility] : 1970 Sex: F Patient Name: EMMIE TIMMONS Unit No: [id number] EXAMS: CPT CODE: [id number] CT ABD PELVIS W/CONT 95510 EXAM: CT abdomen and pelvis with contrast Dictation location: H10 INDICATION: Upper abdominal pain COMPARISON: None TECHNIQUE: Axial images of the abdomen and pelvis were obtained with 75 mL Isovue-300 IVcontrast. Unless otherwise specified, incidental findings do not require dedicated imaging follow-up. Coronal and sagittal reformatted images were performed. Creatinine is 0.84 and estimated GFR is greater than 60. DISCUSSION: Lower thorax: A calcified left lower lobe granuloma is noted. Hepatobiliary: Unremarkable. No biliary ductal dilatation. Gallbladder: Unremarkable. Spleen: Unremarkable. Pa ncreas: Unremarkable. Kidneys: Unremarkable. Adrenals: Unremarkable. Lymph nodes: No lymphadenopathy. Peritoneum/retroperitoneum: No intraabdominal free air or free fluid. Vessels: Mild atherosclerotic calcification, without abdominal aortic aneurysm. Pelvic organs/bladder: The uterus, adnexa, and bladder are unremarkable. Bowel: Mild sigmoid colon diverticulosis is seen, without acute diverticulitis. The appendix is diminutive and normal. No abnormal bowel wall thickening or bowel obstruction is seen. Bones/soft tissues: No fracture or evidence of bony neoplastic process. No hernia is seen. IMPRESSION: 1. Normal appendix. No evidence of acute abdominal abnormality. 2. Mild sigmoid colon diverticulosis, without diverticulitis. One or more of the following dose reduction techniques were used: Automated exposure control, adjustment of the mA and/or kV according [facility] Augie NAME: [address] PHYS: [place], [place] [address] : 1970 AGE: 51 SEX: F LOC: B.ERS PHONE #: [phone] EXAM DATE: 07/31/2022 STATUS: REG ER FAX #: [phone] RAD #: D/C DT PAGE 1 Signed Report (CONTINUED) Patient Name: EMMIE TIMMONS Unit No: [id number] EXAMS: CPT CODE: [id number] CT ABD PELVIS W/CONT 08289 (Continued) to patient s ize, and/or utilization of iterative reconstruction technique. DLP: 625 mGy-cm CTDI: 12 mGy at 1703 Reported and signed by: Rosalino Castelan M.D. CC: Allen Daniels Dictated Date/Time: 07/31/2022 (170) Technologist: Jimy LUCIA CTDI: 11.81 DLP: 624.60 Trnscrpt: 07/31/2022 (1703) [email or web address] [facility] NAME: ASHLEYEMMIE [address] [place] [address] PHYS: [place] [address] : 1970 AGE: 51 SEX: F LOC: TriniERS PHONE #: [phone] EXAM DATE: 07/31/2022 STATUS: REG ER FAX #: [phone] RAD #: D/C DT PAGE 2 Signed Report Patient Name: EMMIE TIMMONS Unit No: [id number] EXAMS: CPT CODE: [id number] CT ABD PELVIS W/CONT 63130 (Continued) Orig Print D/T: S: 07/31/2022 (1706) [facility] [place] NAME: EMMIE TIMMONS [address] [place] [address] PHYS: [place] [address] : 1970 AGE: 51 SEX: F LOC: B.ERS PHONE #: [phone] EXAM DATE: 07/31/2022 STATUS: REG ER FAX #: [phone] RAD #: D/C DT PAGE 3 Signed ReportBASIC METABOLIC [id number] 16:32:00* Test Item Value Reference Range Interpretation Comme nts SODIUM (test code = NA) 136.0 mmol/L 133-144 N POTASSIUM (test code = K) 3.4 mmol/L 3.5-5.1 L CHLORIDE (test code = CL) 103 mmol/L 95-105 N CARBON DIOXIDE (test code = CO2) 25 mmol/L 21-32 N ANION GAP (test code = GAP) 8.0 GAP calc 4.0-15.0 N GLUCOSE (test code = GLU) 107 MG/DL 70-110 N BLOOD UREA NITROGEN (test code = BUN) 14 MG/DL 7-18 N CREATININE (test code = CREAT) 0.84 MG/DL 0.55-1.30 N Results may be depressed if patient is takingN-Acetylcystei ne (NAC) and Metamizole (Dipyrone). CALCIUM (test code = CA) 9.7 MG/DL 8.5-10.1 N INDEX HEMOLYSIS (test code = HEMINDEX) 2 TRACE 10-25 MG Index/DL See_Comment [Automated message] The system which generated this result transmitted reference range: 1 NORMAL. The reference range was not used to interpret this result as normal/abnormal. INDEX ICTERIC (test code = ICTINDEX) 3 SMALL 5-10 MG Index/DL See_Comment [Automated message] The system which generated this result transmitted reference range: 1 NORMAL. The reference range was not used to interpret this result as normal/abnormal. INDEX LIPEMIA (test code = LIPINDEX) 1 NORMAL <50 MG Index/DL See_Comment [Automated message] The system which generated this result transmitted reference range: 1 NORMAL. The reference range was not used to interpret this result as normal/abnormal. HEPATIC FUNCTION [id number] 16:32:00* Test Item Value Reference Range Interpretation Comme nts TOTAL PROTEIN (test code = PROT) 7.8 G/DL 6.4-8.2 N ALBUMIN (test code = ALB) 3.6 G/DL 3.4-5.0 N BILIRUBIN TOTAL (test code = BILT) 6.17 MG/DL 0.00-1.00 H BILIRUBIN DIRECT (test code = BILD) 5.40 MG/DL 0.00-0.30 H BILIRUBIN INDIRECT (test cod e = BILIND) 0.77 MG/DL 0.2-1.3 N SGOT/AST (test code = AST) 337 Unit/L 15-37 H SGPT/ALT (test code = ALT) 615 Unit/L 12-78 H ALKALINE PHOSPHATASE TOTAL ( test code = ALKP) 555 Unit/L 45-117 H [id number] 16:32:00* Test Item Value Reference Range Interpretation Comme nts LIPASE (test code = LIP) 103 Unit/L 114-286 L - US ABDOMEN [id number] 16:24:00 [facility] : 1970 Sex: F Patient Name: EMMIE TIMMONS Unit No: [id number] EXAMS: CPT CODE: [id number] US ABDOMEN LTD [id number] Dictationlocation: [id number]. LIMITED ABDOMINAL ULTRASOUND HISTORY: Upper abd pain FINDINGS: The majority the pancreas, IVC and aorta are obscured by overlying bowel gas. The liver is enlarged measuring 17.2 cm. The shape and echotexture with the portal vein is patent. Gallbladder is contracted. Echogenic focus is seen towards the fundus of the gallbladder measuring up to 5 mm. No other definite gallstones. Thegallbladder wall measures up to 4 mm and may be due to contraction. The common bile duct measures 7-8 mm. The right kidney measures 9.9 x 6.2 x 5.6 cm and is normal in size, shape and echotexture. No evidence of hydronephrosis. IMPRESSION: Contracted gallbladder. Potential gallbladder polyp towards the fundus versus sludge ball. This measures up to 5 mm. Follow-up in 6 months may be beneficial. at 1624 Reported and signed by: Titus Bajwa MD CC: Allen Daniels Technologist: Maria D Serrano Trnscrbd D/ (1623) GregorioSP17 Probe: [facility] Print D/T: S: 07/31/2022 (4411) Probe: BRYSON Ojeda NAME: EMMIE TIMMONS [address] [place] [address] PHYS: Allen Torres, [place] [address] : 1970 AGE:51 SEX: F LOC: B.ERS PHONE #: [phone] EXAM DATE: 07/31/2022 STATUS: REG ER FAX #: [phone] RAD NO: Page 1 Signed ReportPROTHROMBIN [id number] 16:23:00* Test Item Value Reference Range Interpretation Comme nts PT PATIENT (test code = PTP) 10.5 SECONDS 9.4-12.5 N INTERNATIONAL NORMAL RATIO (test code = INR) 0.91 INR Unit 0.88-1.13 N --- --Therapeutic range for INR is dependent upon the situation.2.0-3.0 Prophylaxis / venous thromboembolism, Treatment of DVT, Acute myocardial infarction stroke prevention, Systemic embolism prevention in fibrillation3.0-4.5 AMI recurrence prevention, Systemic embolism prevention in prosthetic heart 3.0-5.4 AMI mortality reduction THROMBOPLASTIN TIME [id number] 16:23:00* Test Item Value Reference Range Interpretation Comments THROMBOPLASTIN TIME PARTIAL (test code = PTT) 39.5 SECONDS 24-37.7 H THERAPEUTIC RANG E FOR UNFRACTIONATED HEPARIN = 50.5-83.6 SEC This test is not recommended to monitor low molecularweight heparin or danaparoid. Order LMWH test COLLECTION THROUGH LINES THAT HAVE BEEN PREVIOUSLY FLUSHEDWITH HEPARIN SHOULD BE AVOIDED DUE TO POSSIBLE HEPARINCONTAMINATION CBC W/O [id number] 16:15:00* Test Item Value Reference Range Interpretation Comme nts WHITE BLOOD CELL (test code = WBC) 9.1 K/mm3 4.1-12.1 N RED BLOOD CELL (test code = RBC) 4.43 M/mm3 3.8-5.5 N HEMOGLOBIN (test code = HGB) 13.8 G/DL 10.6-15.8 N HEMATOCRIT (test code = HCT) 38.9 % 31.8-47.4 N MEAN CELL VOLUME (test code = MCV) 87.8 fL 80.1-101.1 N MEAN CELL HGB (test code = MCH) 31.2 pg 25.3-35.3 N MEAN CELL HGB CONCETRATION ( test code = MCHC) 35.5 G/DL 32.7-35.1 H RED CELL DISTRIBUTION WIDTH (test code = RDW) 15.1 % 12.2-16.4 N PLATELET COUNT (test code = PLT) 301 K/mm3 155-337 N MEAN PLATELET VOLUME (test c ode = MPV) 9.8 fL 6.8-11.2 N Notes Date/Time Note Provider Source 2023-11-28 15:01:00 [id number] [facility]/ZGGetd1mfqamZmhN2YGsfe03475-09-86P25:01:[address] [facility] ([facility])EMERGENCY PROVIDER REPORTREPORT#:[id number] REPORT STATUS: SignedDATE:11/28/23 TIME: 1501 PATIENT: EMMIE TIMMONS UNIT #: [id number]#: [id number] ROOM/BED:AGE: 53 SEX: F PCP PHYS: No Primary or Family PhysicianSERVICE AUTHOR: Mario Noland * ALL edits or amendments must be made on the electronic/computer document * Mario Noland 11/28/23 1501:HPI-Dyspnea/Wheezing Free Text HPI NotesFree Text HPI Fwgrw74-hnoy-saj female with a history of hypertension and smoking cigarettes who complains of dyspnea. She states that her dyspnea started 2 days ago and is gradually increased. She feels that she cannot catch her breath. She denies nausea/vomiting, changes in her bowel/bladder movements, headache, blurred vision, or any other symptoms. GeneralConfirmed Patient YesInitial Greet Date/Time 11/28/23 1500 PresentationChief Complaint Shortness of breath)( Sudden in Onset? No Review of Systems ROS StatementsAll systems rev neg except as marked. Focused Review of SystemsConstitutionalDenies: Chills, Fever. RespiratoryDenies: Shortness of breath, Wheezing. Past Medical History - AdultStated Complaint PUI-SOBAllergiesCoded Allergies:Penicillins (Severe, ANAPHYLAXIS 03/30/23)clindamycin (Severe, ANAPHYLAXIS 03/30/23)morphine (Intermediate, RASH; HEADACHE 03/30/23) Home MedicationsActive ScriptsCARVEDILOL (COREG) 6.25 MG PO BID MEALS CARVEDILOL (COREG) 6.25 MG PO BID MEALS #60 TAB Prov: 04/02/23CEFDINIR (OMNICEF) 300 MG PO Q12H CEFDINIR (OMNICEF) 300 MG PO Q12H #6 CAPS Prov: 04/02/23metroNIDAZOLE (FLAGYL) 500 MG PO Q8H metroNIDAZOLE (FLAGYL) 500 MG PO Q8H #9 TABS Prov: 04/02/23Hydrocodone/Acetaminophen (HYDROcodone/APAP 10/325) 1 TAB PO Q6H PRN PRN POST OPPAIN Hydrocodone/Acetaminophen (HYDROcodone/APAP 10/325) 1 TAB PO Q6H PRN PRN POST OP PAIN #15 TABS Prov: 04/02/23 Additional Medical HistoryPatient denies chronic medical illnessesAdditional Surgical HistoryDeniesAdditional Family HistoryReviewed, noncontributory to this admissionAlcohol Use Denies EtOH useDrug Use Denies recreational drugs Physical Exam Vital SignsVital SignsFirst Documented: Result Date Time Pulse Ox 95 11/28 1500 B/P 169/108 11/28 1500 B/P Mean 128 11/28 1500 O2 Delivery Room air 11/28 1500 Temp 98.7 11/28 1500 Pulse 85 11/28 1500 Resp 18 11/28 1500 Last Documented: Result Date Time Pulse Ox 97 11/28 1748 B/P 158/92 11/28 1748 B/P Mean 114 11/28 1748 Temp 98.6 11/28 1748 Pulse 75 11/28 1748 Resp 16 11/28 1748 O2 Delivery Room air 11/28 1500 Review of Vital Signs Reviewed Focused PEGeneral/Const General/Const Awake, Alert, CooperativeMS Neck Neck Supple, Full range of motion, No swelling, Non-tender, No midline vertebral tendResp/Chest Respiratory/Chest No retractions Resp Distress/Stridor Resp distress mild, Speaks phrases. Wheezing/Retractions Wheeze insp/exp diffuse, Wheezing moderate. Cardiovascular Cardiovascular Heart rate NL, Regular rhythm, Heart sounds NL, Cap refill notdelayed, Peripheral circulation NLAbdomen/GI Abdomen/GI Soft, Non-tender, No guarding, No reboundMS Back Back Inspection NL, Full range of motion, Painless range of motion, Non-tenderMS Lower Extrem Lower Ext/Pelvis/MS Inspection NL, Full range of motion, No swelling, Non-tenderSkin Skin Color NL, Warm, DryNeurologic Neurologic Oriented X3, Speech NL, Memory NL Interpretation Diagnostics Lab Results InterpretationConsiderations Independ review imaging, Reviewed prior recordsResultsLaboratory Tests 11/28/23 1626:[Embedded Image Not Available] 11/28/23 1625:[Embedded Image Not Available]Laboratory Tests: 11/28 11/28 11/28 1626 1626 1625Chemistry Sodium (133 - 144 mmol/L) 134.0 Potassium (3.5 - 5.1 mmol/L) 3.9 Chloride (95 - 105 mmol/L) 102 Carbon Dioxide (21 - 32 mmol/L) 27 Anion Gap (4.0 - 15.0 GAP calc) 5.0 BUN (7 - 18 MG/DL) 10 Creatinine (0.55 - 1.30 MG/DL) 0.68 Glomerular Filtr Rate (>60 estGFR) 105 Glucose (70 - 110 MG/DL) 113 H Calcium (8.5 - 10.1 MG/DL) 9.5 Troponin I High Sens (0 - 45 ng/L) 42 B-Natriuretic Peptide (0.00 - 100.00 PG/ML) 496.53 H Specimen Appearance (1 NORMAL Index/DL) 1 NORMAL <2 MG Specimen Hemolysis (1 NORMAL Index/DL) 1 NORMAL <10 MGHematology WBC (4.1 - 12.1 K/mm3) 10.6 RBC (3.8 - 5.5 M/mm3) 4.62 Hgb (10.6 - 15.8 G/DL) 14.2 Hct (31.8 - 47.4 %) 42.7 MCV (80.1 - 101.1 fL) 92.4 MCH (25.3 - 35.3 pg) 30.7 MCHC (32.7 - 35.1 G/DL) 33.3 RDW (12.2 - 16.4 %) 13.8 Plt Count (155 - 337 K/mm3) 276 MPV (6.8 - 11.2 fL) 9.1Serology SARS-CoV-2 Ag (Rapid) (Neg) Negative Microbiology: Date/Time Procedure - Status Source Growth 11/28 1624 Influenza Virus Type B Antigen - COMP NASAL 11/28 1624 Influenza Virus Type A Antigen - COMP NASAL Recent Impressions:RADIOLOGY - XR CHEST 1 V 11/28 1505 Report Impression - Status: SIGNED Entered: 11/28/2023 1540 IMPRESSION:Bibasilar interstitial pulmonary edema.Impression By: GregorioHV2 - Ugo Stinson MD Lab Imaging StatementLaboratory radiographic studies reviewed and considered in the medical decision-making. Re-Evaluation MDM Free Text MDM NotesAdditional TextDifferential Diagnoses (considered and possible or likely): URI, STEMI, NSTEMI, pneumonia, sepsis Differential Diagnoses (considered and unlikely, not requiring evaluation currently): STEMI, NSTEMI, pneumonia, sepsis Chronic Conditions (stable and unstable): Hypertension, cigarette smoker Comorbid Condition Impacting Present Evaluation/Treatment: Cigarette smoker ECG/Rhythm Strip/Hog Driver Rhythm Interpretation (rhythm, rate, axis, QRS/T waves, acute/chronic changes, comparisons, clinical findings/diagnosis): On October 28, 2024 at 1641 hrs., heart rate: 95 bpm, normal sinus rhythm, right axis deviation, no ST elevation, no acute MS Imaging Studies: Chest x-ray - independently reviewed imaging studies, no acute abnormality identified Tests Ordered and Tests Considered: CBC, BMP, BNP, troponin Quality Associate Discussion(s): N/A Independent Historian: family present at the time of visit. Knowledgeable about the patient's PMHx and current compaint. Social Determinants of Health: family present at the time of visit. External Records Review: reviewed previous visits/record at this hospital Consideration for Hospitalization: Mild pleural effusions, will prescribe Augmentin, azithromycin, and prednisone for home, no other acute abnormality idenitified on imaging and labs, VSS, not septic patient tolerating PO, pain well controlled, will d/c to home. Instructed to follow-up with their PCP for further evaluation and treatment. Educated on return to ED criteria. Patient agreed and acknowledged understanding of the plan. Need to Initiate or Forego Further Testing: N/A Need to Monitor for Drug Toxicities: N/A Illness with High Risk of Morbidity without Treatment: N/A Out-Patient Prescriptions Affecting Other Chronic Conditions: N/A ED Course and Follow-Up Plan: Mild pleural effusions, will prescribe Augmentin,azithromycin, and prednisone for home, no other acute abnormality idenitified onimaging and labs, VSS, not septic patient tolerating PO, pain well controlled, will d/c to home. Instructed to follow-up with their PCP for further evaluation and treatment. Educated on return to ED criteria. Patient agreed and acknowledged understanding of the plan. )( Re-Evaluation/Progress #1)( Re-Eval Status Improved ED CourseMedication(s) OrderedMedication(s) Ordered:Autonomic Drugs Sig/Johan Start time Last Medication Dose Route Stop Time Status Admin Albuterol/Ipratropium 9 ML X1ED STA 11/28 1500 DC 11/28 NEB 11/28 1501 1731 Hormones And Synthetic Substit Sig/Johan Start time Last Medication Dose Route Stop Time Status Admin Methylprednisolone 125 MG X1ED STA 11/28 1500 DC 11/28 Sodium Succinate IV 11/28 1501 1731 Patient Discharge Departure Vital Signs/ConditionVital SignsFirst Documented: Result Date Time Pulse Ox 95 11/28 1500 B/P 169/108 11/28 1500 B/P Mean 128 11/28 1500 O2 Delivery Room air 11/28 1500 Temp 98.7 11/28 1500 Pulse 85 11/28 1500 Resp 18 11/28 1500 Last Documented: Result Date Time Pulse Ox 97 11/28 1748 B/P 158/92 11/28 1748 B/P Mean 114 11/28 1748 Temp 98.6 11/28 1748 Pulse 75 11/28 1748 Resp 16 11/28 1748 O2 Delivery Room air 11/28 1500 All vital signs available at the time of this entry have been reviewed. Condition Improved Clinical ImpressionClinical ImpressionPrimary Impression: URI (upper respiratory infection) Disposition DecisionDischarge )( Discharged to Home Yes )( Time 1743 )( Date 11/28/23 Discharge/Care PlanCounseled Regarding Diagnosis, Lab results, Imaging studies, Prescriptions, Needfor follow-up, When to return to EDPrescriptionsalbuterol hfa inhaler, prednisone, levaquin, azithromycin(Auto) PrescriptionsCurrent Visit ScriptsLEVOFLOXACIN (LEVAQUIN) 750 MG PO DAILY LEVOFLOXACIN (LEVAQUIN) 750 MG PO DAILY #10 TABS AZITHROMYCIN (Z-TERRANCE) 250 MG PO ASDIR AZITHROMYCIN (Z-TERRANCE) 250 MG PO ASDIR #6 TABS Take 2 tablets today, then 1 tablet daily thereafter for a total of 5 days of treatment. predniSONE 50 MG PO DAILY predniSONE 50 MG PO DAILY #5 TABS ALBUTEROL (ALBUTEROL HFA 90 MCG/ACT) 1 PUFF INH RTQ4H PRN PRN wheezing ALBUTEROL (ALBUTEROL HFA 90 MCG/ACT) 1 PUFF INH RTQ4H PRN PRN wheezing #18 GM Patient Instructions ED URI Abx Discharge NoteI have spoken with the patient and/or caregivers. I have explained the patient'scondition, diagnoses and treatment plan based on the information available to meat this time. I have answered the patient's and/or caregiver's questions and addressed any concerns. The patient and/or caregivers have as good an understanding of the patient's diagnosis, condition and treatment plan as can beexpected at this point. The vital signs have been stable. The patient's condition is stable and appropriate for discharge from the emergency department. The patient will pursue further outpatient evaluation with the primary care physician or other designated or consulting physician as outlined in the discharge instructions. The patient and/or caregivers are agreeable to this planof care and follow-up instructions have been explained in detail. The patient and/or caregivers have received these instructions in written format and have expressed an understanding of the discharge instructions. The patient and/or caregivers are aware that any significant change in condition or worsening of symptoms should prompt an immediate return to this or the closest emergency department or a call to 911. Jamie Chavez 12/03/23 0057:Re-Evaluation MDM Free Text MDM NotesFree Text MDM NotesPt seen and eval with midlevelAgree with chart as documented unless noted otherwise by mePt well appearing, non toxicTaking PO and ambulatory in EDStable for dispo home with close f/uPt agreeable with plan Patient Discharge Departure Discharge/Care PlanReferralsResource Referral: [facility] Follow-Up: As Needed Address: [address] [place] [address] [place] [address] Supervising Physician Note MidLv/Doc Saw Pt 2The PA/PHARMACY TECHNICIAN INPATIENT has seen the patient and I have performed this visit along with the involvement of the PA/PHARMACY TECHNICIAN INPATIENT. I agree with the PA/expanded function dental assistant findings and plan. I have performed all aspects of MDM as documented including: evaluation of the patient/patient's condition(s), review and analysis of available data, and determinationof risk of patient management decisions. at 0608 at 0057RPT #:[id number] OF REPORTOzarks Community Hospital gxdjga7949-02-82V81:01:00B.[id number] ilable for patient xvvnQXVRMGIRSPFKFY7115-86-17U19:08:18 [facility] 2023-04-02 13:58:00 [id number] [id number]+EG 0HSDzoYqRPjfhjJX4RJDMxRO9Ub9929-42-10I31:58:00 [facility] Progress NoteREPORT#:[id number] REPORT STATUS: SignedDATE:04/02/23 TIME: 1358 PATIENT: EMMIE TIMMONS UNIT #: [id number]#: [id number] [facility] [birth year] AGE: 52 SEX: F ATTEND: Rosalino Fletcher [facility] AUTHOR: Damon Briseno MD * ALL edits or amendments must be made on the electronic/computer document * GeneralDate of surgery: 04/01/23Status post:Laparoscopic cholecystectomy SubjectiveHPI:She is getting dressed ready to be discharged. She states she has some mild incisional pain she is tolerating her diet. She had one episode of vomiting that was a small amount but she is doing better and ready for discharge. Objective GeneralVS/I O:Last Documented: Result Date Time Pulse Ox 94 04/02 1054 B/P 144/82 04/02 1054 B/P Mean 102.9 04/02 1054 O2 Delivery Room air 04/02 1054 Temp 97.7 04/02 1054 Pulse 64 04/02 1054 Resp 14 04/02 1054 O2 Flow Rate 3 04/01 1430 FiO2 21 04/01 0100 Vital SignsDate Temp Pulse Resp B/P B/P Mean Pulse Ox FsK789/-04/02 97.7-98.4 55-74 14-18 135-210/71-115 96.7-135.7 94-99 24 hour I O ending at 0700: 04/02 0700 04/01 1900 Intake Total 200.00 600.00 Output Total Balance 200.00 600.00 Intake, IV 200.00 600.00 Number Voids 3 PATIENT WEIGHT: Weight (lb): 182Weight (oz): 15.74Weight (kg): 83.000 Medications:Active Meds + DC'd Last 24 HrsAcetaminophen (TYLENOL) 650 MG PACU ONCE PO (DC) Albuterol Sulfate (PROVENTIL NEB) 2.5 MG PACU ONCE PRN PRN NEB (DC) Dexamethasone Sodium Phosphate (DECADRON 4MG/ML) 4 MG PACU ONCE IV (DC) Droperidol (droPERidol) 0.625 MG PACU ONCE PRN IV (DC) Fentanyl Citrate (SUBLIMAZE) 25 MCG PACU Q5MIN PRN PRN IV (DC) Hydralazine HCl (APRESOLINE) 10 MG PACU Q15MIN PRN PRN IV (DC) Ketorolac Tromethamine (TORADOL) 15 MG PACU ONCE IV (DC) Labetalol HCl (TRANDATE MDV) 5 MG PACU Q5MIN PRN PRN IV (DC) Lactated Ringer's (LACTATED RINGERS) 1,000 ML PACU IV (DC) Meperidine HCl (DEMEROL) 12.5 MG PACU ASDIR PRN PRN IV (DC) Metoprolol Tartrate (LOPRESSOR) 2 MG PACU Q5MIN PRN PRN IV (DC) Naloxone HCl (NARCAN) 0.1 MG PACU ONCE PRN PRN IV (DC) Ondansetron HCl (ZOFRAN) 4 MG PACU ONCE PRN PRN IV (DC) Acetaminophen (TYLENOL) 650 MG PACU ONCE PO (DC) Albuterol Sulfate (PROVENTIL NEB) 2.5 MG PACU ONCE PRN PRN NEB (DC) Dexamethasone Sodium Phosphate (DECADRON 4MG/ML) 4 MG PACU ONCE IV (DC) Droperidol (droPERidol) 0.625 MG PACU ONCE PRN IV (DC) Fentanyl Citrate (SUBLIMAZE) 25 MCG PACU Q5MIN PRN PRN IV (DC) Hydromorphone HCl (DILAUDID) 0.25 MG PACU Q5MIN PRN PRN IV (DC) Ketorolac Tromethamine (TORADOL) 15 MG PACU ONCE IV (DC) Lactated Ringer's (LACTATED RINGERS) 1,000 ML PACU IV (DC) Meperidine HCl (DEMEROL) 12.5 MG PACU ASDIR PRN PRN IV (DC) Metoprolol Tartrate (LOPRESSOR) 2 MG PACU Q5MIN PRN PRN IV (DC) Naloxone HCl (NARCAN) 0.1 MG PACU ONCE PRN PRN IV (DC) Ondansetron HCl (ZOFRAN) 4 MG PACU ONCE PRN PRN IV (DC) Lactated Ringer's (LACTATED RINGERS) 1,000 ML PACU IV (DC) Ceftriaxone Sodium (ROCEPHIN) 1 GM Q24H IV Sterile Water (STERILE WATER) 10 MLMetronidazole HCl (FLAGYL 500MG/NS 100 ML) 100 ML Q8HR IV Pantoprazole (PROTONIX) 40 MG BID IV Carvedilol (COREG) 6.25 MG BID MEALS PO Al Hydrox/Mg Hydrox/Simethicone (MAALOX PLUS) 30 ML Q4H PRN PRN PO Calcium Carbonate (TUMS) 1,000 MG DAILY PRN PRN PO Clonidine HCl (CATAPRES) 0.1 MG Q6H PRN PRN PO Hydralazine HCl (APRESOLINE) 10 MG Q4H PRN PRN IV Hydrocodone Bitart/Acetaminophen (NORCO 10/325 TABLET) 1 TAB Q4H PRN PRN PO Hydromorphone HCl (DILAUDID) 0.5 MG Q4H PRN PRN IV Labetalol HCl (TRANDATE MDV) 20 MG Q4H PRN PRN IV Magnesium Sulfate/Dextrose (MAGNESIUM SULFATE 1GM/D5W 100ML) 100 ML DAILY PRN PRN IV Ondansetron HCl (ZOFRAN) 4 MG Q4H PRN PRN IV Oxycodone/Acetaminophen (PERCOCET) 1 TAB Q4H PRN PRN PO Potassium Chloride (K-DUR) 40 MEQ DAILY PRN PRN PO Potassium Phos/Sodium Phos (PHOS-NAK PACKET) 2 PKT DAILY PRN PRN PO (CKD) Senna (SENOKOT) 1 TAB DAILY PRN PRN PO (CKD) Simethicone (MYLICON) 160 MG Q6H PRN PRN PO Trazodone HCl (DESYREL) 50 MG BEDTIME PRN PRN PO Enoxaparin Sodium (LOVENOX) 40 MG Q24H SUBQ Physical ExamGeneral appearance: alert, awake, orientedAbdomen: tenderness, soft Diagnosis, Assessment PlanFree Text A P:Cholecystitis Noted K to discharge from my standpoint follow-up in office in 2 weeks questionswere answered. at 1400 RPT #:[id number] OF REPORTPRProgress [id number]:58:00B.[id number] able for patient bzhdIIYWGLKGHOBNNO2392-40-98I96:00:29 [facility] 10:27:00 [id number] Sj1NBRpSXATpQnXShn3xfaov7G/6R nX1niHATMliQaKcPQRKu+fjjU5p4039-91-05C63:27:00 [facility] CenterHospitalist Progress NoteREPORT#:[id number] REPORT STATUS: SignedDATE:04/02/23 TIME: 1027 PATIENT: EMMIE TIMMONS UNIT #: [id number]#: [id number] [facility] [birth year] AGE: 52 SEX: F ATTEND: Rosalino Fletcher MDADM AUTHOR: Rosalino Fletcher MD * ALL edits or amendments must be made on the electronic/computer document * SubjectiveChief complaint:feels better Objective GeneralVS/I O:24 hour I O ending at 0700: 12 0700 04/02 1900 Intake Total 240 Output Total Balance 240 Intake, Oral 240 Supplement PATIENT WEIGHT: Weight (lb): 182Weight (oz): 15.74Weight (kg): 83.000 Dietitian nutrition assessmentThe data set between the solid lines has been imported from the dietitian's assessment. BMI Calculated: 29.5Nutrition related diagnosis: Nutrition diagnosis details: Nutrition problem: Nutrition etiology: Nutrition signs and symptoms: Nutrition prescription: Dietitian name: Assessment completed: Physical ExamHead/Eyes: EOMI, normocephalicENT: moist mucosal membranesNeck: supple/no meningismusCardiovascular: normal heart soundsRespiratory: decreased breath soundsAbdomen: tenderness, mild tenderness in epigastrium Extremities: moves all, no cyanosis, no edemaMusculoskeletal: normal inspectionNeuro/EQUIPMENT ENGINEER: alert, oriented X 3, CNII-XII intact, normal speechSkin: dry, intact Diagnosis, Assessment PlanHospital course to date:Presentation on admission: Patient with no significant past medical history except of alcohol consumption, presented with a complaint of epigastric and right upper quadrant abdominal pain severe in nature. Hospital course: Patient is treated with IV antibiotics ceftriaxone and Flagyl along with Protonix. going to OR today for lap [place]. Free Text DxA P NotesFree text DxA P notes:Global assessment plan: 1. Abdominal pain work-up is in progress. Patient responded to the Protonix and IV antibiotics her pain is now tolerable, WBC leukocytosis is resolved continue IV antibiotics and further work-up ultrasound right upper quadrant and gallbladder and HIDA scan is ordered. 3. Hypokalemia treated accordingly. 4. Blood glucose in diabetic range we will do a fasting blood glucose and A1c. 3. DVT prophylaxis in place. Please refer to the medication administration labs and other provider notes for care plan detail, I authorize the medical record to be copied by other providersparticipating in care of this patient. at 2000 RPT #:[id number] OF REPORTPRProgress [id number]:27:00B.[id number] able for patient cbcsFMCNNCLJITHQYM6391-55-76L33:00:45 [facility] 2023-04-01 13:55:00 [id number] cGyqx3+tNUifk+0+FrrW+JfTzXg/y ZnMGxzHNMx7mB74xu5epyvwXpND4119-31-92O73:55:64044 0-0145 [place] [address] PATIENT NAME: EMMIE TIMMONS ADMIT DATE: 03/30/23ACCOUNT NO: [id number] ROOM NO: [facility] AGE: 52 REPORT TYPE: REPORT OF OPERATION SEX: F ADMITTING PHYSICIAN:Yuriy Smiley MD ATTENDING PHYSICIAN:Rosalino Fletcher MD OPERATION DATE: 04/01/2023 PREOPERATIVE DIAGNOSIS: Acute cholecystitis. POSTOPERATIVE DIAGNOSIS: Chronic cholecystitis. PROCEDURE: Laparoscopic cholecystectomy. SURGEON: Damon Briseno DO PRODUCTION PLANNER SCHEDULER: ANESTHESIA: General. FLUIDS: Crystalloid. ESTIMATED BLOOD LOSS: Minimal. COMPLICATIONS: None apparent. CONDITION: Stable. HISTORY: Ms. Timmons is a 52-year-old female who came to the Emergency Room with intermittent right upper quadrant abdominal pain, nausea, vomiting. She had a negative Imaging workup, her pain persisted. She had a HIDA scan that showed no filling of the gallbladder consistent with cystic duct obstruction Buster was consulted for cholecystectomy. We discussed the procedure in detail at the bedside. Risks, complications and full recovery was reviewed. Consents obtained. OPERATIVE FINDINGS: She had signs of mild chronic cholecystitis. She had contracted empty gallbladder with some mild adhesions at a routine laparoscopic cholecystectomy. She also had some hepatomegaly, could be liver capsule pain. DESCRIPTION OF PROCEDURE: She was taken to the operating suite and laid in supine position, given general anesthesia. The abdomen was then prepped and draped with ChloraPrep. Small transverse incision made just above the umbilicusand a 5 mm bladeless Optiview trocar complex inserted through layers of abdominal wall under direct vision. The abdomen was insufflated. Quick survey the anterior viscera reveals no gross visceral pathology. She was placed in steep reverse Trendelenburg, rotated a little bit to the left side. An epigastric 11 mm bladeless trocar was placed and two 5 mm bladeless trocars PATIENT NAME: EMMIE TIMMONS placed in the right upper quadrant. The body of the gallbladder was then grasped and elevated up over the liver. She did have hepatomegaly, her liver was quite large. There were few adhesions to Rylee's pouch. These were carefully taken down. There was no acute inflammation. Rylee's pouch was then grasped and placed in lateral traction. Quinn's capsule medially and laterally and skeletonized the cystic duct and cystic artery, both then clipped and divided. The gallbladder was now elevated off liver bed with hook cautery and placed in the Endobag and removed through the epigastric trocar site, inspected the liver. There was good hemostasis. Insufflation was released, trocars removed. The epigastric trocar fascia was closed with 2-0 Vicryl. Skinincisions were injected with local and closed with 4-0 Monocryl subcuticularly, sterilely cleaned and dried the area, placed Dermabond, glue dressing to the incision. She was then awoken and taken to recovery room in stable condition. Dictated By: Damon Briseno, DO Date Dictated: 04/01/2023 13:55:55Date Transcribed: 04/01/2023 20:41:28CD/Franc #: [id number] ID: [id number] by Damon Briseno MD On 04/03/2023 02:45:15 PM at 0245 PATIENT NAME: EMMIE TIMMONS nvbfvc3633-09-01M44:41:00B.[id number] lable for patient xbdwGCTYMGFXGBEEQS9101-14-59K20:45:54 [facility] 2023-04-01 13:51:00 [id number] WzV2M96xpbYst4CjN6ZAouECGlx+j X4zKQnjyYS+qSIvUNbhlkIjNPIm2590-21-51Q84:51:00 [facility] ([facility])Brief Op NoteREPORT#:[id number] REPORT STATUS: SignedDATE:04/01/23 TIME: 135 PATIENT: EMMIE TIMMONS UNIT #: [id number]#: [id number] [facility] [birth year] AGE: 52 SEX: F ATTEND: Rosalino Fletcher [facility] AUTHOR: Damon Briseno MD * ALL edits or amendments must be made on the electronic/computer document * Op/Inv Proc Note - BriefPre-procedure diagnosis:cholecystitisPost-procedure diagnosis: Chronic cholecystitisProcedures performed:laparoscopic cholecystectomyPrimary Surgeon:Issaistant(s): noneFindings:mild chronic changes, hepatomeglyComplications: noneEstimated blood loss in ml's: minimalSpecimens removed/altered: GBDictation number:[id number] at 1356 RPT #:[id number] OF REPORTOPOperative qynind0093-68-33R84:51:00B.[id number] ilable for patient nrelBMLKCFESCAYKEE3471-12-55X75:56:28 [facility] 2023-04-01 09:14:00 [id number] lue3DVWrkeprfNQkqwQA9RZBZdhEK OYV8dSTNakGlFnU449chudv8Ad20445-88-12I85:14:[address] [facility] ([facility])Hospitalist Progress NoteREPORT#:[id number] REPORT STATUS: SignedDATE:04/01/23 TIME: 913 PATIENT: EMMIE TIMMONS UNIT #: [id number]#: [id number] [facility]: [birth year] AGE: 52 SEX: F ATTEND: Yuriy Smiley [facility] AUTHOR: Rosalino Fletcher MD * ALL edits or amendments must be made on the electronic/computer document * SubjectiveChief complaint:still with a lot of abd paingoing to or today Objective GeneralVS/I O:Vital Signs: Date Time Temp Pulse Resp B/P B/P Pulse O2 O2 Flow FiO2 Mean Ox Delivery Rate 04/01 827 98.1 57 16 137/83 0.0 96 Room air 04/01 0422 98.1 62 161/93 115.4 99 04/01 0125 97.9 165/91 115 97 04/01 0100 94 Room air 21 03/31 2029 98.2 67 134/87 102.6 94 03/31 1511 97.7 63 17 169/89 115.8 96 Room air 24 hour I O ending at 0700: 04/01 0700 03/31 1900 Intake Total Output Total Balance Number Voids 1 PATIENT WEIGHT: Weight (lb): 182Weight (oz): 15.74Weight (kg): 83.000 Medications:Active Meds + DC'd Last 24 HrsHydromorphone HCl (DILAUDID) 1 MG STAT STA IV (UNV) Ceftriaxone Sodium (ROCEPHIN) 1 GM Q24H IV Sterile Water (STERILE WATER) 10 MLMetronidazole HCl (FLAGYL 500MG/NS 100 ML) 100 ML Q8HR IV Pantoprazole (PROTONIX) 40 MG BID IV Carvedilol (COREG) 6.25 MG BID MEALS PO Al Hydrox/Mg Hydrox/Simethicone (MAALOX PLUS) 30 ML Q4H PRN PRN PO Calcium Carbonate (TUMS) 1,000 MG DAILY PRN PRN PO Clonidine HCl (CATAPRES) 0.1 MG Q6H PRN PRN PO Hydralazine HCl (APRESOLINE) 10 MG Q4H PRN PRN IV Hydrocodone Bitart/Acetaminophen (NORCO 10/325 TABLET) 1 TAB Q4H PRN PRN PO Hydromorphone HCl (DILAUDID) 0.5 MG Q4H PRN PRN IV Labetalol HCl (TRANDATE MDV) 20 MG Q4H PRN PRN IV Magnesium Sulfate/Dextrose (MAGNESIUM SULFATE 1GM/D5W 100ML) 100 ML DAILY PRN PRN IV Ondansetron HCl (ZOFRAN) 4 MG Q4H PRN PRN IV Oxycodone/Acetaminophen (PERCOCET) 1 TAB Q4H PRN PRN PO Potassium Chloride (K-DUR) 40 MEQ DAILY PRN PRN PO Potassium Phos/Sodium Phos (PHOS-NAK PACKET) 2 PKT DAILY PRN PRN PO (CKD) Senna (SENOKOT) 1 TAB DAILY PRN PRN PO (CKD) Simethicone (MYLICON) 160 MG Q6H PRN PRN PO Trazodone HCl (DESYREL) 50 MG BEDTIME PRN PRN PO Enoxaparin Sodium (LOVENOX) 40 MG Q24H SUBQ Dietitian nutrition assessmentThe data set between the solid lines has been imported from the dietitian's assessment. BMI Calculated: 29.5Nutrition related diagnosis: Nutrition diagnosis details: Nutrition problem: Nutrition etiology: Nutrition signs and symptoms: Nutrition prescription: Dietitian name: Assessment completed: Physical ExamHead/Eyes: EOMI, normocephalicENT: moist mucosal membranesNeck: supple/no meningismusCardiovascular: normal heart soundsRespiratory: decreased breath soundsAbdomen: tenderness, mild tenderness in epigastrium Extremities: moves all, no cyanosis, no edemaMusculoskeletal: normal inspectionNeuro/EQUIPMENT ENGINEER: alert, oriented X 3, CNII-XII intact, normal speechSkin: dry, intact Diagnosis, Assessment PlanHospital course to date:Presentation on admission: Patient with no significant past medical history except of alcohol consumption, presented with a complaint of epigastric and right upper quadrant abdominal pain severe in nature. Hospital course: Patient is treated with IV antibiotics ceftriaxone and Flagyl along with Protonix. going to OR today for lap [place]. Free Text DxA P NotesFree text DxA P notes:Global assessment plan: 1. Abdominal pain work-up is in progress. Patient responded to the Protonix and IV antibiotics her pain is now tolerable, WBC leukocytosis is resolved continue IV antibiotics and further work-up ultrasound right upper quadrant and gallbladder and HIDA scan is ordered. 3. Hypokalemia treated accordingly. 4. Blood glucose in diabetic range we will do a fasting blood glucose and A1c. 3. DVT prophylaxis in place. Please refer to the medication administration labs and other provider notes for care plan detail, I authorize the medical record to be copied by other providersparticipating in care of this patient. at 0956 RPT #:[id number] OF REPORTPRProgress zeid7560-90-95Q84:14:00B.[id number] able for patient uhkeHYPZCNLDIASHVN2828-46-00Y40:56:49 [facility] 2023-03-31 17:52:00 [id number] v4/rT1uvDROcGKUXMlZCrrLoZKojp LNEe73qIxRhJseSPLY3v98N1/hM8286-35-34T40:52:00 [facility] Progress NoteREPORT#:[id number] REPORT STATUS: SignedDATE:03/31/23 TIME: 1751 PATIENT: EMMIE TIMMONS UNIT #: [id number]#: [id number] [address] [birth year] AGE: 52 SEX: F ATTEND: Yuriy Smiley [facility] AUTHOR: Damon Briseno MD * ALL edits or amendments must be made on the electronic/computer document * SubjectiveHPI:She complains of intermittent right upper quadrant abdominal pain, nausea vomiting is also in the epigastric region. She had an episode about 6 months ago and they saw sludge in her gallbladder. She had a CT scan that was negative, she then had a HIDA scan that showed no filling of the gallbladder consistent with cholecystitis and I was asked to reevaluate for cholecystectomy Objective GeneralVS/I O:Last Documented: Result Date Time Pulse Ox 96 03/31 1511 B/P 169/89 03/31 1511 B/P Mean 115.8 03/31 1511 O2 Delivery Room air 03/31 1511 Temp 97.7 03/31 1511 Pulse 63 03/31 1511 Resp 17 03/31 151 Vital Signs Date Temp Pulse Resp B/P B/P Mean Pulse Ox FiO2 03/30-03/31 97.7-98.1 63-71 13-20 151-169/89-97 111.8-119 96-98 24 hour I O ending at 0700: 03/31 0700 03/30 1900 Intake Total 400.00 Output Total Balance 400.00 Intake, IV 200.00 Intake, Oral 200 Number Voids 3 PATIENT WEIGHT: Weight (lb): 182Weight (oz): 15.74Weight (kg): 83.000 Medications:Active Meds + DC'd Last 24 HrsTechnetium TC99M Mebrofenin (TC 99M Mebrofenin) 8.3 mCi .STK-MED ONE IV (DC) Ceftriaxone Sodium (ROCEPHIN) 1 GM Q24H IV Sterile Water (STERILE WATER) 10 MLMetronidazole HCl (FLAGYL 500MG/NS 100 ML) 100 ML Q8HR IV Pantoprazole (PROTONIX) 40 MG BID IV Carvedilol (COREG) 6.25 MG BID MEALS PO Al Hydrox/Mg Hydrox/Simethicone (MAALOX PLUS) 30 ML Q4H PRN PRN PO Calcium Carbonate (TUMS) 1,000 MG DAILY PRN PRN PO Clonidine HCl (CATAPRES) 0.1 MG Q6H PRN PRN PO Hydralazine HCl (APRESOLINE) 10 MG Q4H PRN PRN IV Hydrocodone Bitart/Acetaminophen (NORCO 10/325 TABLET) 1 TAB Q4H PRN PRN PO Hydromorphone HCl (DILAUDID) 0.5 MG Q4H PRN PRN IV Labetalol HCl (TRANDATE MDV) 20 MG Q4H PRN PRN IV Magnesium Sulfate/Dextrose (MAGNESIUM SULFATE 1GM/D5W 100ML) 100 ML DAILY PRN PRN IV Ondansetron HCl (ZOFRAN) 4 MG Q4H PRN PRN IV Oxycodone/Acetaminophen (PERCOCET) 1 TAB Q4H PRN PRN PO Potassium Chloride (K-DUR) 40 MEQ DAILY PRN PRN PO Potassium Phos/Sodium Phos (PHOS-NAK PACKET) 2 PKT DAILY PRN PRN PO (CKD) Senna (SENOKOT) 1 TAB DAILY PRN PRN PO (CKD) Simethicone (MYLICON) 160 MG Q6H PRN PRN PO Trazodone HCl (DESYREL) 50 MG BEDTIME PRN PRN PO Enoxaparin Sodium (LOVENOX) 40 MG Q24H SUBQ Physical ExamGeneral appearance: alert, awake, orientedAbdomen: rebound (RUQ), tenderness (r), soft, no guarding ResultsRadiology data:Recent Impressions:NUCLEAR MEDICINE - HEPA IMAG INCL GB W PHA 03/31 0850 Report Impression - Status: SIGNED Entered: 03/31/2023 1216 IMPRESSION: Acute cholecystitis/cystic duct obstructionImpression By: Analilia - Ferdinand Howe D.O. Diagnosis, Assessment PlanFree Text A P:Calculus cholecystitis Laparoscopic cholecystectomy tomorrow discussed in detail with the patient at the bedside today risk complications typical recovery is reviewed she wants to proceed. at 1754 RPT #:[id number] OF REPORTPRProgress djxn7912-34-68W83:52:00B.[id number] able for patient tkudFHTMZNXGMHFWWG3714-77-29M14:54:30 [facility] 2023-03-31 09:57:00 [id number] lhImqjEt79tBKCjGpxW3tAEkjbekC /UgNGggmIUXPs4ShFutiK0VqwBg7516-52-51W49:57:[address] [facility] ([facility]Hospital[facility] Discharge SummaryREPORT#:[id number] REPORT STATUS: SignedDATE:03/31/23 TIME: 956 PATIENT: EMMIE TIMMONS UNIT #: [id number]#: [id number] [facility] [birth year] AGE: 52 SEX: F ATTEND: Rosalino Fletcher MDADM AUTHOR: Rosalino Fletcher MD * ALL edits or amendments must be made on the electronic/computer document * General InformationDischarge date: 04/02/23Discharge diagnosis:cholecystitisHospital course:52-year-old female presenting to the emerged part with abdominal pain. Work-up demonstrated a leukocytosis but no other findings. CT scan of the abdomen pelvis is completely normal with respect to any issues with the gallbladder, appendix, or GI tract. There is some evidence of hepatic inflammation/hepatitison CT. Free Text DxA P NotesFree text DxA P notes:Global assessment plan: 1. Abdominal pain work-up is in progress. Patient responded to the Protonix and IV antibiotics her pain is now tolerable, WBC leukocytosis is resolved continue IV antibiotics and further work-up ultrasound right upper quadrant and gallbladder and HIDA scan is ordered. 3. Hypokalemia treated accordingly. 4. Blood glucose in diabetic range we will do a fasting blood glucose and A1c. 3. DVT prophylaxis in place. Please refer to the medication administration labs and other provider notes for care plan detail, I authorize the medical record to be copied by other providersparticipating in care of this patient. Med Rec Med RecDischarge meds:Start taking the following new medications:CARVEDILOL (COREG) 6.25 MG TAB 6.25 MILLIGRAM ORAL TWICE DAILY WITH MEALS. Qty = 60 No Refills CEFDINIR (OMNICEF) 300 MG CAP 300 MILLIGRAM ORAL EVERY 12 HOURS. Qty = 6 No Refills metroNIDAZOLE (FLAGYL) 500 MG TAB 500 MILLIGRAM ORAL EVERY 8 HOURS. Qty = 9 No Refills HYDROcodone/APAP (HYDROcodone/APAP 10/325) 10 MG-325 MG TAB 1 TABLET ORAL EVERY 6 HOURS NEEDED. as needed for POST OP PAIN Qty = 15 No Refills ObjectiveHead/Eyes: EOMI, normocephalicENT: moist mucosal membranesNeck: supple/no meningismusCardiovascular: normal heart soundsRespiratory: decreased breath soundsAbdomen: tenderness, mild tenderness in epigastrium Extremities: moves all, no cyanosis, no edemaMusculoskeletal: normal inspectionNeuro/EQUIPMENT ENGINEER: alert, oriented X 3, CNII-XII intact, normal speechSkin: dry, intact Discharge Instructions PCPDischarge to: Home/Self CareAdditional Discharge Routines: PCP Follow-UpDiet: Cardiac Follow-up AppointmentsPCP follow-up: PCP: No Primary or Family Physician PCP follow up timeframe: In 1[facility] weeks at [facility] RPT #:[id number] OF REPORTDSDischarge vrbjfbf1649-04-73F86:57:00B.[id number] ailable for patient lpnrVJDCVFDSULVBSD1032-56-75N92:01:24 [facility] 2023-03-31 09:17:00 [id number] rdEre1pTkqWH4CRTJ1fsPjKEvTett [facility]+7iU99gnbis2fqP/og300XhF2526-22-05G96:17:00 [facility] CenterHospital[facility] Progress NoteREPORT#:[id number] REPORT STATUS: SignedDATE:03/31/23 TIME: 916 PATIENT: EMMIE TIMMONS UNIT #: [id number]#: [id number] [facility] [birth year] AGE: 52 SEX: F ATTEND: Yuriy Smiley [facility] AUTHOR: Rosalino Fletcher MD * ALL edits or amendments must be made on the electronic/computer document * SubjectiveChief complaint:going for hida scan Objective GeneralVS/I O:Vital Signs: Date Time Temp Pulse Resp B/P B/P Pulse O2 O2 Flow FiO2 Mean Ox Delivery Rate 03/31 0717 96 Room air 03/31 0250 97.7 71 20 165/97 119 97 03/31 0012 97.7 66 13 151/92 111.8 98 Room air 03/30 2046 98.1 71 14 159/96 117.3 97 Room air 03/30 1308 95 Room air 03/30 1308 99.9 129 15 116/70 85 94 Nasal cannula 03/30 1305 98.1 91 17 149/90 109.5 95 Room air 24 hour I O ending at 0700: 09 0700 05/08 1900 Intake Total 400.00 Output Total Balance 400.00 Intake, IV 200.00 Intake, Oral 200 Number Voids 3 PATIENT WEIGHT: Weight (lb): 182Weight (oz): 15.74Weight (kg): 83.000 Medications:Active Meds + DC'd Last 24 HrsTechnetium TC99M Mebrofenin (TC 99M Mebrofenin) 8.3 mCi .STK-MED ONE IV (DC) Ceftriaxone Sodium (ROCEPHIN) 1 GM Q24H IV Sterile Water (STERILE WATER) 10 MLMetronidazole HCl (FLAGYL 500MG/NS 100 ML) 100 ML Q8HR IV Pantoprazole (PROTONIX) 40 MG BID IV Carvedilol (COREG) 6.25 MG BID MEALS PO Al Hydrox/Mg Hydrox/Simethicone (MAALOX PLUS) 30 ML Q4H PRN PRN PO Calcium Carbonate (TUMS) 1,000 MG DAILY PRN PRN PO Clonidine HCl (CATAPRES) 0.1 MG Q6H PRN PRN PO Hydralazine HCl (APRESOLINE) 10 MG Q4H PRN PRN IV Hydrocodone Bitart/Acetaminophen (NORCO 10/325 TABLET) 1 TAB Q4H PRN PRN PO Hydromorphone HCl (DILAUDID) 0.5 MG Q4H PRN PRN IV Labetalol HCl (TRANDATE MDV) 20 MG Q4H PRN PRN IV Magnesium Sulfate/Dextrose (MAGNESIUM SULFATE 1GM/D5W 100ML) 100 ML DAILY PRN PRN IV Ondansetron HCl (ZOFRAN) 4 MG Q4H PRN PRN IV Oxycodone/Acetaminophen (PERCOCET) 1 TAB Q4H PRN PRN PO Potassium Chloride (K-DUR) 40 MEQ DAILY PRN PRN PO Potassium Phos/Sodium Phos (PHOS-NAK PACKET) 2 PKT DAILY PRN PRN PO (CKD) Senna (SENOKOT) 1 TAB DAILY PRN PRN PO (CKD) Simethicone (MYLICON) 160 MG Q6H PRN PRN PO Trazodone HCl (DESYREL) 50 MG BEDTIME PRN PRN PO Enoxaparin Sodium (LOVENOX) 40 MG Q24H SUBQ Dietitian nutrition assessmentThe data set between the solid lines has been imported from the dietitian's assessment. BMI Calculated: 29.5Nutrition related diagnosis: Nutrition diagnosis details: Nutrition problem: Nutrition etiology: Nutrition signs and symptoms: Nutrition prescription: Dietitian name: Assessment completed: Physical ExamHead/Eyes: EOMI, normocephalicENT: moist mucosal membranesNeck: supple/no meningismusCardiovascular: normal heart soundsRespiratory: decreased breath soundsAbdomen: tenderness, mild tenderness in epigastrium Extremities: moves all, no cyanosis, no edemaMusculoskeletal: normal inspectionNeuro/EQUIPMENT ENGINEER: alert, oriented X 3, CNII-XII intact, normal speechSkin: dry, intact Diagnosis, Assessment PlanHospital course to date:Presentation on admission: Patient with no significant past medical history except of alcohol consumption, presented with a complaint of epigastric and right upper quadrant abdominal pain severe in nature. Hospital course: Patient is treated with IV antibiotics ceftriaxone and Flagyl along with Protonix. Patient responded to this intervention today feels and looks more comfortable. Today we will proceed for evaluation of the possible gallbladder pathology and have an ultrasound, ultrasound is normal we will proceed with nuclear gallbladder HIDA scan. Free Text DxA P NotesFree text DxA P notes:Global assessment plan: 1. Abdominal pain work-up is in progress. Patient responded to the Protonix and IV antibiotics her pain is now tolerable, WBC leukocytosis is resolved continue IV antibiotics and further work-up ultrasound right upper quadrant and gallbladder and HIDA scan is ordered. 3. Hypokalemia treated accordingly. 4. Blood glucose in diabetic range we will do a fasting blood glucose and A1c. 3. DVT prophylaxis in place. Please refer to the medication administration labs and other provider notes for care plan detail, I authorize the medical record to be copied by other providersparticipating in care of this patient. at 1041 RPT #:[id number] OF REPORTPRProgress ardc2359-24-71C58:17:00B.HMEC53527856-7876JUTkgmu able for patient sggwDNTJIQZDKIEUYK7415-17-47U57:41:50 [facility] 2023-03-30 14:38:00 [id number]+vR xMkhSYyUmwWzTVejIJIVg2D7cOoJY ATWcnZD0tZ7Xt5AVncm+XHHoCkN0822-57-08N19:38:00 [facility] CenterHospital[facility] Progress NoteREPORT#:[id number] REPORT STATUS: SignedDATE:03/30/23 TIME: 1438 PATIENT: EMMIE TIMMONS UNIT #: [id number]#: [id number] [facility] [birth year] AGE: 52 SEX: F ATTEND: Yuriy Smiley [facility] AUTHOR: Yuriy Smiley MD * ALL edits or amendments must be made on the electronic/computer document * SubjectiveChief complaint:Abdominal painHPI:Patient presented with abdominal epigastric and right upper quadrant pain. Objective GeneralVS/I O:Vital Signs: Date Time Temp Pulse Resp B/P B/P Pulse O2 O2 Flow FiO2 Mean Ox Delivery Rate 03/30 1308 99.9 129 15 116/70 85 94 Nasal cannula 03/30 1305 98.1 91 17 149/90 109.5 95 Room air 03/30 0834 98.1 86 15 171/103 125.9 94 Room air 03/30 0359 99.0 75 140/74 95.7 97 03/29 2350 98.4 73 137/86 102.8 95 03/297 98.1 65 143/80 100.8 94 03/29 1715 82 18 177/84 115 98 Room air 03/29 1615 98.4 76 18 179/83 115 98 Room air 03/29 1515 67 18 189/84 119 98 Room air 24 hour I O ending at 0700: 03/30 0700 03/29 1900 Intake Total 450.00 Output Total Balance 450.00 Intake, IV 250.00 Intake, Oral 200 Number Voids 2 Patient 83 kg 71.5 kg Weight Weight Bed scale Bed scale Measurement Method PATIENT WEIGHT: Weight (lb): 182Weight (oz): 15.74Weight (kg): 83.000 Medications:Active Meds + DC'd Last 24 HrsCeftriaxone Sodium (ROCEPHIN) 1 GM Q24H IV Sterile Water (STERILE WATER) 10 MLMetronidazole HCl (FLAGYL 500MG/NS 100 ML) 100 ML Q8HR IV Pantoprazole (PROTONIX) 40 MG BID IV Carvedilol (COREG) 6.25 MG BID MEALS PO Al Hydrox/Mg Hydrox/Simethicone (MAALOX PLUS) 30 ML Q4H PRN PRN PO Calcium Carbonate (TUMS) 1,000 MG DAILY PRN PRN PO Clonidine HCl (CATAPRES) 0.1 MG Q6H PRN PRN PO Hydralazine HCl (APRESOLINE) 10 MG Q4H PRN PRN IV Hydrocodone Bitart/Acetaminophen (NORCO 10/325 TABLET) 1 TAB Q4H PRN PRN PO Hydromorphone HCl (DILAUDID) 0.5 MG Q4H PRN PRN IV Labetalol HCl (TRANDATE MDV) 20 MG Q4H PRN PRN IV Magnesium Sulfate/Dextrose (MAGNESIUM SULFATE 1GM/D5W 100ML) 100 ML DAILY PRN PRN IV Ondansetron HCl (ZOFRAN) 4 MG Q4H PRN PRN IV Oxycodone/Acetaminophen (PERCOCET) 1 TAB Q4H PRN PRN PO Potassium Chloride (K-DUR) 40 MEQ DAILY PRN PRN PO Potassium Phos/Sodium Phos (PHOS-NAK PACKET) 2 PKT DAILY PRN PRN PO (CKD) Senna (SENOKOT) 1 TAB DAILY PRN PRN PO (CKD) Simethicone (MYLICON) 160 MG Q6H PRN PRN PO Trazodone HCl (DESYREL) 50 MG BEDTIME PRN PRN PO Enoxaparin Sodium (LOVENOX) 40 MG Q24H SUBQ Al Hydrox/Mg Hydrox/Simethicone (MAALOX PLUS) 30 ML X1ED STA SWISH SWAL (DC) Lidocaine HCl (XYLOCAINE VISCOUS 2%) 15 MLPantoprazole (PROTONIX) 80 MG X1ED STA IV (DC) Ceftriaxone Sodium (ROCEPHIN) 1 GM Q12H IV (DC) Sterile Water (STERILE WATER) 10 ML Physical ExamGeneral appearance: alert, awake, orientedHead/Eyes: EOMI, normocephalicENT: moist mucosal membranesNeck: supple/no meningismusCardiovascular: normal heart soundsRespiratory: decreased breath soundsAbdomen: tenderness, mild tenderness in epigastrium Extremities: moves all, no cyanosis, no edemaMusculoskeletal: normal inspectionNeuro/EQUIPMENT ENGINEER: alert, oriented X 3, CNII-XII intact, normal speechSkin: dry, intact Diagnosis, Assessment PlanHospital course to date:Presentation on admission: Patient with no significant past medical history except of alcohol consumption, presented with a complaint of epigastric and right upper quadrant abdominal pain severe in nature. Hospital course: Patient is treated with IV antibiotics ceftriaxone and Flagyl along with Protonix. Patient responded to this intervention today feels and looks more comfortable. Today we will proceed for evaluation of the possible gallbladder pathology and have an ultrasound, ultrasound is normal we will proceed with nuclear gallbladder HIDA scan. Free Text DxA P NotesFree text DxA P notes:Global assessment plan: 1. Abdominal pain work-up is in progress. Patient responded to the Protonix and IV antibiotics her pain is now tolerable, WBC leukocytosis is resolved continue IV antibiotics and further work-up ultrasound right upper quadrant and gallbladder and HIDA scan is ordered. 3. Hypokalemia treated accordingly. 4. Blood glucose in diabetic range we will do a fasting blood glucose and A1c. 3. DVT prophylaxis in place. Please refer to the medication administration labs and other provider notes for care plan detail, I authorize the medical record to be copied by other providersparticipating in care of this patient. at 1441 RPT #:[id number] OF REPORTPRProgress fslf7365-19-57E68:38:00B.[id number] able for patient pbwmTLAXLAHSLRLTFE7994-42-10B50:41:51 [facility] 15:12:00 [id number] amYlPWNKudFqEC5Ia5sujIseIzVIU coCrwyX49GRiBcUPZK90rd9iUg79405-03-74S16:12:[address] [facility] ([facility])General Surgery Consult NoteREPORT#:[id number] REPORT STATUS: SignedDATE:03/29/23 TIME: 1511 PATIENT: EMMIE TIMMONS UNIT #: [id number]#: [id number] [facility] [birth year] AGE: 52 SEX: F ATTEND: Yuriy Smiley [facility] AUTHOR: Vishal Kim MD * ALL edits or amendments must be made on the electronic/computer document * History of Present IllnessHPI:52-year-old female presenting to the emerged part with abdominal pain. Work-up demonstrated a leukocytosis but no other findings. CT scan of the abdomen pelvis is completely normal with respect to any issues with the gallbladder, appendix, or GI tract. There is some evidence of hepatic inflammation/hepatitison CT. hCG is mildly elevated History - Adult longitudinalAdditional medical history:Patient denies chronic medical illnessesAdditional surgical history:DeniesAdditional family history:Reviewed, noncontributory to this admissionAlcohol use: Denies EtOH useDrug use: Denies recreational drugsSmoking status for patients 13 years old or older: Current every day smokerAllergies:Coded Allergies:Penicillins (Severe, ANAPHYLAXIS 03/29/23)clindamycin (Severe, ANAPHYLAXIS 03/29/23)morphine (Intermediate, RASH; HEADACHE 03/29/23) Review of SystemsGI:Reports: abdominal pain (high epigastric. burning). Objective Physical ExamVS/I OLast Documented: Result Date Time Pulse Ox 95 03/29 1315 B/P 151/77 03/29 1315 B/P Mean 101 03/29 1315 O2 Delivery Room air 03/29 1315 Pulse 85 03/29 1315 Resp 18 03/29 1315 Temp 98.3 03/29 1116 Vital Signs Date Temp Pulse Resp B/P B/P Mean Pulse Ox FiO2 03/29 98.3-98.4 66-85 18-19 139-186/66-82 90-116 95-99 PATIENT WEIGHT: Weight (lb): Weight (oz): Weight (kg): 71.500 ResultsFindings/Data:Laboratory Tests: 03/29 1127 Urines Urine Color (YELLOW DESCRIPT) LIGHT-YELLOW Urine Appearance (CLEAR DESCRIPT) CLEAR Urine pH (4.6 - 8.0 pH UNITS) 6.5 Ur Specific [place] (1.001 - 1.035 SG) >1.050 H Urine Protein ((NEG) <30 mg/dL) 10 (TRACE) H Urine Glucose (UA) (0 (NORMAL) mg/dL) NORMAL (0) Urine Ketones ((NEG) 0 mg/dL) NEGATIVE (0) Urine Blood (0 (NEG) mg/dL) NEGATIVE (0.00) Urine Nitrite (NEG SCREEN) NEGATIVE (0) Urine Bilirubin ((NEG) 0 mg/dL) NEGATIVE (0.0) Urine Urobilinogen ((NORM)<2.0 mg/Dl) NORMAL (0) Ur Leukocyte Esterase ((NEG) 0 Leuk/mcL) 75 H Urine RBC (0 - 3 #RBC/HPF) 0-3 Urine WBC (0 - 3 #WBC/HPF) 0-3 Hyaline Casts (0 - 3 #/LPF) 5-10 H Urine Mucus (NONE /LPF) RARE Urine Culture Screen (Cult byWBC Criteria) Crit NOTmet CULT-N/A Urine Comment (SpecComment NoteSPEC) SPECIMEN COMMENT 03/29 1057 Chemistry Sodium (133 - 144 mmol/L) 136.0 Potassium (3.5 - 5.1 mmol/L) 2.9 L Chloride (95 - 105 mmol/L) 101 Carbon Dioxide (21 - 32 mmol/L) 29 Anion Gap (4.0 - 15.0 GAP calc) 6.0 BUN (7 - 18 MG/DL) 19 H Creatinine (0.55 - 1.30 MG/DL) 1.07 Glomerular Filtr Rate (>60 estGFR) 63 Glucose (70 - 110 MG/DL) 151 H Calcium (8.5 - 10.1 MG/DL) 10.0 Total Bilirubin (0.00 - 1.00 MG/DL) 0.40 Direct Bilirubin (0.00 - 0.30 MG/DL) 0.19 Indirect Bilirubin (0.2 - 1.3 MG/DL) 0.21 AST (15 - 37 Unit/L) 92 H ALT (12 - 78 Unit/L) 46 Total Alk Phosphatase (45 - 117 Unit/L) 91 Total Protein (6.4 - 8.2 G/DL) 8.3 H Albumin (3.4 - 5.0 G/DL) 4.0 Lipase (114 - 286 Unit/L) 122 Specimen Appearance (1 NORMAL Index/DL) 1 NORMAL <2 MG Specimen Hemolysis (1 NORMAL Index/DL) 1 NORMAL <10 MG Hematology WBC (4.1 - 12.1 K/mm3) 20.1 H RBC (3.8 - 5.5 M/mm3) 4.94 Hgb (10.6 - 15.8 G/DL) 15.0 Hct (31.8 - 47.4 %) 44.5 MCV (80.1 - 101.1 fL) 90.1 MCH (25.3 - 35.3 pg) 30.4 MCHC (32.7 - 35.1 G/DL) 33.7 RDW (12.2 - 16.4 %) 13.5 Plt Count (155 - 337 K/mm3) 347 H MPV (6.8 - 11.2 fL) 9.0 Miscellaneous Maternal Serum HCG (0 - 3 mi-IU/ML) 14 H Recent Impressions:CAT SCAN - CTA PELVIS 03/29 1103 Report Impression - Status: SIGNED Entered: 03/29/2023 1308 IMPRESSION: No acute vascular/aortic findings throughout the chest, abdomen, andpelvis. There is diffuse heterogeneous enhancement of the hepatic parenchyma,which is a nonspecific finding on arterial phase. This may representtransient hepatic attenuation difference versus underlyinginflammation/hepatitis. Impression By: GregorioJW22 - CARLOZ Rios SCAN - CTA ABDOMEN 03/29 1103 Report Impression - Status: SIGNED Entered: 03/29/2023 1308 IMPRESSION: No acute vascular/aortic findings throughout the chest, abdomen, andpelvis. There is diffuse heterogeneous enhancement of the hepatic parenchyma,which is a nonspecific finding on arterial phase. This may representtransient hepatic attenuation difference versus underlyinginflammation/hepatitis. Impression By: GregorioJWLubna Skinnerkaitlynn Harrison, DOCAT SCAN - CT ANGIO CHEST 03/29 1103 Report Impression - Status: SIGNED Entered: 03/29/2023 1308 IMPRESSION: No acute vascular/aortic findings throughout the chest, abdomen, andpelvis. There is diffuse heterogeneous enhancement of the hepatic parenchyma,which is a nonspecific finding on arterial phase. This may representtransient hepatic attenuation difference versus underlyinginflammation/hepatitis. Impression By: DerekLubna Nadia Harrison, DO Free Text Obj NotesFree Text Obj Notes:sPHYSICAL EXAMINATION:General appearance: alert, awake, no acute distress, pleasant, no respiratory distressHead/Eyes: normocephalic, no icterus, pupils reactiveENT: atraumaticNeck: normal inspection full range of motionCardiovascular: pulses all extremities; RRRRespiratory/chest: CTAB No distress,aerating wellAbdomen: soft, epigastric tenderness, no distention, no surgical incisions, no herniasGenitourinary: no foleyRectal: deferredExtremities: dry, moves allNeuro/EQUIPMENT ENGINEER: alert, oriented X 3, follows commands, no motor deficits, no sensory deficits, opens eyes - tracksSkin: dry, intactPsychiatry: normal affect, normal mood, not anxious Diagnosis, Assessment PlanProblem List/A P: 1. Abdominal pain Free Text DxA P NotesFree Text DxA P Notes:There is no indication for surgical invention at this time. Gallbladder, appendix, and upper and lower GI tracts appear normal on CT RecommendationsHepatitis panelGI talkedPossible GI consult for endoscopy General surgery sign of this time please call with further questions. Vishal Kim MD FACS TIMEGreater than 55 minutes were spent in the evaluation and management of this patient today including bedside examination, review of laboratory and radiology findings, discussion with consultants, discussion with the patient at 2020 [facility] #:[id number] OF REPORTVXKzvqwmhqxilp1040-59-79R65:12:00B.PDOC2 [id number] for patient xpweIGNUIFMPAWGTJF7366-49-83D38:21:32 [facility] 14:07:00 [id number]+[id number] 5eO6E2qFqiadZcDf0WneQPZfrUT5348-43-94A83:07:[address] [facility] ([facility])Hospitalist History PhysicalREPORT#:[id number] REPORT STATUS: SignedDATE:03/29/23 TIME: 1407 PATIENT: EMMIE TIMMONS UNIT #: [id number]#: [id number] [facility]: [facility] AGE: 52 SEX: F ATTEND: Yuriy Smiley [facility] AUTHOR: Yuriy Smiley MD * ALL edits or amendments must be made on the electronic/computer document * History of Present Illness HPIChief complaint:Abdominal painPCP:PCP: No Primary or Family Physician HPI:Patient presents with a chief complaint of severe midepigastric abdominal pain that started earlier this morning. Patient works at the [employer] when she got home from work she started having severe pain. Patient called EMS at which time she was brought to our facility. Patient is nauseated and having dry heaves. Patient is a smoker. Takes no medications. History Past Medical Surgical HxAdditional medical history:Patient denies chronic medical illnessesAdditional surgical history:Denies Family HistoryAdditional family history:Reviewed, noncontributory to this admission Social HistoryAlcohol use: Alcohol useDrug use: Denies recreational drugsSmoking status for patients 13 years old or older: Current every day smoker Medication/Allergy-Vaccine HxMedications:Home Medications:No Known Home Medications Allergies:Coded Allergies:Penicillins (Severe, ANAPHYLAXIS 03/30/23)clindamycin (Severe, ANAPHYLAXIS 03/30/23)morphine (Intermediate, RASH; HEADACHE 03/30/23) OBJECTIVEVS/I O:Vital Signs Date Temp Pulse Resp B/P B/P Mean Pulse Ox FiO2 03/29 98.3-98.4 66-85 18-19 139-186/66-82 90-116 95-99 Last Documented: Result Date Time Pulse Ox 95 03/29 1315 B/P 151/77 03/29 1315 B/P Mean 101 03/29 1315 O2 Delivery Room air 03/29 1315 Pulse 85 03/29 1315 Resp 18 03/29 1315 Temp 98.3 03/29 1116 Patient Weight and BMI Weight (kg): 71.500 BMI: 25.4 Medications:Active Meds + DC'd Last 24 HrsFentanyl Citrate (SUBLIMAZE) 100 MCG X1ED STA IV (DC) Ondansetron HCl (ZOFRAN) 4 MG X1ED STA IV (DC) Fentanyl Citrate (SUBLIMAZE) 100 MCG X1ED STA IV (DC) Morphine Sulfate (MORPHINE SULFATE) 0 .STK-MED ONE IV (DC) Ondansetron HCl (ZOFRAN) 0 .STK-MED ONE IV (DC) General appearance: alert, awake, orientedHead/Eyes: EOMI, normocephalicENT: moist mucosal membranesNeck: supple/no meningismusCardiovascular: normal heart soundsRespiratory: decreased breath soundsAbdomen: tenderness, mild tenderness in epigastrium Extremities: moves all, no cyanosis, no edemaMusculoskeletal: normal inspectionNeuro/EQUIPMENT ENGINEER: alert, oriented X 3, CNII-XII intact, normal speechSkin: dry, intact Diagnosis, Assessment PlanFree Text A P:Global assessment plan: 1. Abdominal pain work-up is in progress. Patient drinks alcohol occasionally and clinical impression and Protonix and GI cocktail, surgical consultation is also requested.A surgical consult is done will r/o Liver and GB pathology 3. Hypokalemia treated accordingly. 4. Blood glucose in diabetic range we will do a fasting blood glucose and A1c. 3. DVT prophylaxis in place. Please refer to the medication administration labs and other provider notes for care plan detail, I authorize the medical record to be copied by other providersparticipating in care of this patient. Quality: Gen Med Crit Care VTE ProphylaxisVTE prophylaxis initiated: yes at 0616 [facility] #:[id number] OF REPORTHPHistory and physical kzsfpwmcygn7163-30-05R39:07:00B.[id number] AVAvailable for patient wjuqRCBVDZQEMWMJFO0686-62-59D96:17:03 [facility] 2023-03-29 10:56:00 [id number]+UCzcBPON5 bVMom14phUalLrpkmhEKQ0J+XnP3708-84-93W28:56:[address] [facility] ([facility])EMERGENCY PROVIDER REPORTREPORT#:[id number] REPORT STATUS: SignedDATE:03/29/23 TIME: 105 PATIENT: EMMIE TIMMONS UNIT #: [id number]#: [id number] [facility]WAGE: 52 SEX: F PCP PHYS: No Primary or Family PhysicianSERVICE AUTHOR: Chris Yoder DO * ALL edits or amendments must be made on the electronic/computer document * HPI-Abd Pain F 40 and Over GeneralInitial Greet Date/Time 03/29/23 1046 PresentationChief Complaint Abdominal painSudden in Onset? Yes Free Text HPI NotesFree Text HPI NotesPatient presents with a chief complaint of severe midepigastric abdominal pain that started earlier this morning. Patient works at the [employer] states when she got home from work she started having severe pain. Patient called EMS at which time she was brought to our facility. Patient is nauseated and having dry heaves. Patient is a smoker. Takes no medications. Risk-Abd Pain F 40 and Over)( Abdominal Aortic Aneurysm Risk factors reviewed Review of Systems ROS StatementsAll systems rev neg except as marked. Focused Review of SystemsConstitutionalReports: Malaise. GIReports: Abdominal pain, Nausea, Vomiting. Past Medical History - AdultStated Complaint PAINAllergiesCoded Allergies:Penicillins (Severe, ANAPHYLAXIS 03/30/23)clindamycin (Severe, ANAPHYLAXIS 03/30/23)morphine (Intermediate, RASH; HEADACHE 03/30/23) Home MedicationsDiscontinued ScriptsCIPROFLOXACIN (CIPRO) 500 MG PO BID CIPROFLOXACIN (CIPRO) 500 MG PO BID #6 TABS Prov: 08/05/22 DC: 03/29/23 1056 Therapy completedmetroNIDAZOLE (FLAGYL) 500 MG PO TID metroNIDAZOLE (FLAGYL) 500 MG PO TID #9 TABS Prov: 08/05/22 DC: 03/29/23 1056 Therapy completed Reported MedicationsNo Known Home Medications Calculated Suicide Risk (nurs) No riskAdditional Medical HistoryPatient denies chronic medical illnessesAdditional Surgical HistoryDeniesAdditional Family HistoryReviewed, noncontributory to this admissionAlcohol Use Denies EtOH useDrug Use Denies recreational drugsSmoking status for patients 13 years old or older: Current every day smoker Physical Exam Vital SignsVital SignsFirst Documented: Result Date Time Pulse Ox 99 03/29 1048 B/P 139/66 03/29 1048 B/P Mean 90 03/29 1048 O2 Delivery Room air 03/29 1048 Temp 98.4 03/29 1048 Pulse 66 03/29 1048 Resp 19 03/29 1048 Last Documented: Result Date Time Pulse Ox 95 03/29 1315 B/P 151/77 03/29 1315 B/P Mean 101 03/29 1315 O2 Delivery Room air 03/29 1315 Pulse 85 03/29 1315 Resp 18 03/29 1315 Temp 98.3 03/29 1116 Review of Vital Signs Reviewed Focused PEGeneral/Const General/Const Awake, Alert Appearance/Presentation In pain. MS Head Head Atraumatic, NormocephalicEyes Eyes PERRL, EOMIEars/Nose/Throat Ears/Nose/Throat Airway patentResp/Chest Respiratory/Chest Atraumatic, Breath sounds NL, Breath sounds = bilat, No respiratory distress, No rales, No rhonchi, No wheezing, No retractions, No stridor, No chest tenderness, No chest wall deformity, No crepitusCardiovascular Cardiovascular Heart rate NL, Regular rhythm, Heart sounds NL, No gallop, No murmurs, No rubs, Cap refill not delayed, Peripheral circulation NL, Pulses = bilaterally, No gross BP differentialAbdomen/GI Abdomen/GI Soft Tenderness/Guarding/Rebound Tender epigastric. Negative: Guarding voluntary, Guarding involuntary, Rebound localized, Rebound diffuse, Rigid to palpation. MS Back Back Inspection NLSkin Skin DryNeurologic Neurologic Oriented X3, Speech NL Interpretation Diagnostics Lab Results InterpretationResultsLaboratory Tests 03/29/23 1057:[Embedded Image Not Available] 03/29/23 1057:[Embedded Image Not Available]Laboratory Tests: 03/29 03/29 1127 1057 Chemistry Hemoglobin A1c (4.5 - 5.6 % IS-A1C) 5.5 Urines Urine Color (YELLOW DESCRIPT) LIGHT-YELLOW Urine Appearance (CLEAR DESCRIPT) CLEAR Urine pH (4.6 - 8.0 pH UNITS) 6.5 Ur Specific [place] (1.001 - 1.035 SG) >1.050 H Urine Protein ((NEG) <30 mg/dL) 10 (TRACE) H Urine Glucose (UA) (0 (NORMAL) mg/dL) NORMAL (0) Urine Ketones ((NEG) 0 mg/dL) NEGATIVE (0) Urine Blood (0 (NEG) mg/dL) NEGATIVE (0.00) Urine Nitrite (NEG SCREEN) NEGATIVE (0) Urine Bilirubin ((NEG) 0 mg/dL) NEGATIVE (0.0) Urine Urobilinogen ((NORM)<2.0 mg/Dl) NORMAL (0) Ur Leukocyte Esterase ((NEG) 0 Leuk/mcL) 75 H Urine RBC (0 - 3 #RBC/HPF) 0-3 Urine WBC (0 - 3 #WBC/HPF) 0-3 Hyaline Casts (0 - 3 #/LPF) 5-10 H Urine Mucus (NONE /LPF) RARE Urine Culture Screen (Cult byWBC Criteria) Crit NOTmet CULT-N/A Urine Comment (SpecComment NoteSPEC) SPECIMEN COMMENT 03/29 03/29 1057 1057 Chemistry Sodium (133 - 144 mmol/L) 134.0 136.0 Potassium (3.5 - 5.1 mmol/L) 2.9 L 2.9 L Chloride (95 - 105 mmol/L) 101 101 Carbon Dioxide (21 - 32 mmol/L) 29 29 Anion Gap (4.0 - 15.0 GAP calc) 4.0 6.0 BUN (7 - 18 MG/DL) 20 H 19 H Creatinine (0.55 - 1.30 MG/DL) 1.14 1.07 Glomerular Filtr Rate (>60 estGFR) 59 L 63 Glucose (70 - 110 MG/DL) 152 H 151 H Calcium (8.5 - 10.1 MG/DL) 10.0 10.0 Total Bilirubin (0.00 - 1.00 MG/DL) 0.40 0.40 Direct Bilirubin (0.00 - 0.30 MG/DL) 0.23 0.19 Indirect Bilirubin (0.2 - 1.3 MG/DL) 0.17 L 0.21 AST (15 - 37 Unit/L) 92 H 92 H ALT (12 - 78 Unit/L) 47 46 Total Alk Phosphatase (45 - 117 Unit/L) 89 91 Total Protein (6.4 - 8.2 G/DL) 8.1 8.3 H Albumin (3.4 - 5.0 G/DL) 4.1 4.0 Albumin/Globulin Ratio (1.2 - 2.2 RATIO) 1.0 L Lipase (114 - 286 Unit/L) 122 Specimen Appearance (1 NORMAL Index/DL) 1 NORMAL <2 MG 1 NORMAL <2 MG Specimen Hemolysis (1 NORMAL Index/DL) 1 NORMAL <10 MG 1 NORMAL <10 MG Hematology WBC (4.1 - 12.1 K/mm3) 20.1 H RBC (3.8 - 5.5 M/mm3) 4.94 Hgb (10.6 - 15.8 G/DL) 15.0 Hct (31.8 - 47.4 %) 44.5 MCV (80.1 - 101.1 fL) 90.1 MCH (25.3 - 35.3 pg) 30.4 MCHC (32.7 - 35.1 G/DL) 33.7 RDW (12.2 - 16.4 %) 13.5 Plt Count (155 - 337 K/mm3) 347 H MPV (6.8 - 11.2 fL) 9.0 Miscellaneous Maternal Serum HCG (0 - 3 mi-IU/ML) 14 H Recent Impressions:CAT SCAN - CTA PELVIS 03/29 1103 Report Impression - Status: SIGNED Entered: 03/29/2023 1308 IMPRESSION: No acute vascular/aortic findings throughout the chest, abdomen, andpelvis. There is diffuse heterogeneous enhancement of the hepatic parenchyma,which is a nonspecific finding on arterial phase. This may representtransient hepatic attenuation difference versus underlyinginflammation/hepatitis. Impression By: GregorioJW22 - CARLOZ Rios SCAN - CTA ABDOMEN 03/29 1103 Report Impression - Status: SIGNED Entered: 03/29/2023 1308 IMPRESSION: No acute vascular/aortic findings throughout the chest, abdomen, andpelvis. There is diffuse heterogeneous enhancement of the hepatic parenchyma,which is a nonspecific finding on arterial phase. This may representtransient hepatic attenuation difference versus underlyinginflammation/hepatitis. Impression By: RENO AshleyAT SCAN - CT ANGIO CHEST 03/29 1103 Report Impression - Status: SIGNED Entered: 03/29/2023 1308 IMPRESSION: No acute vascular/aortic findings throughout the chest, abdomen, andpelvis. There is diffuse heterogeneous enhancement of the hepatic parenchyma,which is a nonspecific finding on arterial phase. This may representtransient hepatic attenuation difference versus underlyinginflammation/hepatitis. Impression By: Isidoro Harrison, DO Re-Evaluation MDM Free Text MDM NotesAdditional TextMedical decision makingNumber and complexity of problemsDifferential diagnosis: AAA, abdominal pain, peptic ulcer disease, PE, dissection, ACSMDM dataExternal documents reviewed:My EKG interpretation normal sinus rhythm with nonspecific ST-T wave rate of [address] interpretation reviewed CT reports from radiologistMy x-ray interpretationMy ultrasound interpretation: N/ALabs reviewed by meDecision rules/scores evaluatedDiscussed with; Dr Smiley for admissionI considered admission for: Undifferentiated abdominal painTreatment and disposition: Patient given pain medication, will admit for observationED course: Bedside ultrasound does not reveal AAA. Had CTAs of chest abdomen pelvis. Nonspecific findings.Shared decision making: Patient still in pain will admit for observationCODE STATUS: Full code )( Re-Evaluation/Progress #1)( Re-Eval Status Improved Re-Evaluation/Progress #2Time of Eval 1342Re-Eval Status Worsened ED CourseMedication(s) OrderedMedication(s) Ordered:Central Nervous System Agents Sig/Johan Start time Last Medication Dose Route Stop Time Status Admin Fentanyl Citrate 100 MCG X1ED STA 03/29 1337 DC 05/ IV 03/29 1338 1346 Fentanyl Citrate 100 MCG X1ED STA 03/29 1054 DC 05/ IV 03/29 1055 1100 Morphine Sulfate 0 .STK-MED ONE 03/29 1053 DC IV Gastrointestinal Drugs Sig/Johan Start time Last Medication Dose Route Stop Time Status Admin Ondansetron HCl 4 MG X1ED STA 03/29 1055 DC 05/ IV 03/29 1056 1100 Ondansetron HCl 0 .STK-MED ONE 03/29 1053 DC IV Patient Discharge Departure Vital Signs/ConditionVital SignsFirst Documented: Result Date Time Pulse Ox 99 03/29 1048 B/P 139/66 03/29 1048 B/P Mean 90 03/29 1048 O2 Delivery Room air 03/29 1048 Temp 98.4 03/29 1048 Pulse 66 03/29 1048 Resp 19 03/29 1048 Last Documented: Result Date Time Pulse Ox 95 03/29 1315 B/P 151/77 / 1315 B/P Mean 101 03/29 1315 O2 Delivery Room air 03/29 1315 Pulse 85 / 1315 Resp 18 03/29 1315 Temp 98.3 03/29 1116 All vital signs available at the time of this entry have been reviewed. Clinical ImpressionClinical ImpressionPrimary Impression: Abdominal pain Disposition DecisionAdmit Admit Physician Name Yuriy Smiley MD Admit Physician Hospitalist Request Time 1338 Request Date 03/29/23 )( Admission Accepts Yes )( Accepted Time 1338 )( Accepted Date 03/29/23 Call Information will see patient, agrees with eval, agrees with plan Discharge/Care Plan(Auto) PrescriptionsCurrent Visit ScriptsNo Known Home Medications Critical CareTime Spent (minutes): 35Services Performed Patient management by me, Time spent at bedside, Reviewing test results, Reviewing imaging, Discussing patient care, Documentation in record CC Note 1Total critical care time [35] minutes. Total critical care time documented does not include time spent on separately billed procedures or the services of residents, students, nurses or physician assistants. I personally saw and examined the patient. I have reviewed all diagnostic interpretations and treatment plans as written. I was present for the lutz portions of any proceduresperformed and the inclusive time noted in any critical care statement. Critical care time includes patient management by me, time spent at the patients bedside,time to review lab and imaging results, discussing patient care, documentation in the medical record, and time spent with the family or caregiver. at 0706RPT #:[id number] OF REPORTNorth [facility] department zrnkgi3200-30-64M50:56:00B.[id number] ilable for patient hccxYFAKNXHHVHQAQM1297-29-08O44:07:01 [facility] 2022-08-25 17:19:00 [id number] oDORmCmPgPoopMHQCqYiSIc6CKb7659-94-54Y14:19:11719 3-[address] [place] [address] PATIENT NAME: EMMIE TIMMONS ADMIT DATE: 07/31/22ACCOUNT NO: [id number] [facility] AGE: 51 REPORT TYPE: 360 - QUERY RESPONSE DOCUMENT SEX: F ADMITTING PHYSICIAN:Cony Peterson MD ATTENDING PHYSICIAN:Cony Peterson MD Provider Query QUERY TEXT: Condition General 360MD Query related questions should be directed to:[facility] Coding Query Helpline Based on your medical judgment and the clinical indicators listed below, can you identify the underlying cause of the patient's ABDOMINAL PAIN ( CHOLEDOCHOLELITHIAISS ,PUD , GASTRITIS ,GALLBLADDER POLYP , unspecified, or other more appropriate diagnosis) The patient's Clinical Indicators include:Chief Complaint Abdominal pain- ED PHYSICIAN RECORD 07/31/2022 Primary Impression: Choledocholithiasis- ED PHYSICIAN RECORD 07/31/2022 ABNORMAL LFTS- Hospitalist History and Physical 08/01/2022 Possible PUD/Gastritis- Hospitalist History and Physical 08/01/2022 Possible Choledocholithiasis (CBD Upper limits of Normal (7-8 mm))-Hospitalist History and Physical 08/01/2022 Potential gallbladder polyp towards the fundus versus sludge ball- Hospitalist History and Physical 08/01/2022 There is no evidence of intraluminal filling defect, stricture or other abnormality of the bile ducts- MRI MRCP 08/01/2022 Options provided:-- Respond - Create new note now-- Dismiss - Not applicable / Not valid-- Dismiss - Clinically unable to determine / Unknown-- Assign to another provider QUERY RESPONSE: Provider was clinically unable to determine a response for this query Query created by: Nathalia Mejía on 08/08/2022 12:26 AM at 1719 PATIENT NAME: EMMIE TIMMONS noteB.[id number] for patient tipkETTNBQNXYODEZF9376-67-83B85:20:16 [facility] 2022-08-05 09:54:00 [id number] TVUkgSe5qKSjTI1zlFalZOjHTzzf9 kREer4pmsfVSdro2xzYRmkd8Tic2646-38-85O23:54:00 [facility] CenterDis[facility] SummaryREPORT#:[id number] REPORT STATUS: SignedDATE:08/05/22 TIME: 953 PATIENT: EMMIE TIMMONS UNIT #: [id number]#: [id number] [facility] AGE: 51 SEX: F ATTEND: Cony Peterson MDADM AUTHOR: Sola Villa MD * ALL edits or amendments must be made on the electronic/computer document * PCP PCPPCP:PCP: No Primary or Family Physician General InformationDate of admission:Observation Start Date: Date of admission: 07/31/22 Discharge date: 08/05/22Discharge diagnosis:See belowHospital course:HPIThis is a case of a 51-year-old female presented in the ED because of abdominal pain. The pain is located in the epigastric/right upper quadrant area. No radiation to the back. Described her stools to be "alcoholic/white and urine isorange in color. Described the pain to be more of heart burn. Symptoms started2 days prior to admission. With generalized pruritus. No rash. Patient deniedany fever or chills. Denied any melena, hematochezia or hematemesis. No dysuria hematuria. No syncope. She reports nausea and vomiting, has had no BM since 3 days prior to admission. Poor appetite. Food makes the abdominal pain worse and it also causes her to vomit. Generalized weakness. Patient subsequently presented in the ED because of intractable pain. History Past Medical Surgical HxAdditional medical history:Patient denies chronic medical illnesses Additional surgical history:Denies Family HistoryAdditional family history:Reviewed, noncontributory to this admission Social HistoryAlcohol use: Denies EtOH useDrug use: Denies recreational drugsSmoking status: Smoking status for patients 13 years old or older: Never Smoker Medication/Allergy-Vaccine HxAllergies:Coded Allergies:Penicillins (Severe, ANAPHYLAXIS 07/31/22)morphine (Intermediate, RASH; HEADACHE 07/31/22)clindamycin (ANAPHYLAXIS 07/31/22) Review of Systems Free Text ROS NotesFree Text ROS Notes:14 point review of system performed and pertinent findings as mentioned HPI Otherwise, the rest of the ROS is negative and none contributory to this admission and HPI. Physical Exam VS/I O:Vital Signs Date Time Temp Pulse Resp B/P B/P Pulse O2 O2 Flow FiO2 Mean Ox Delivery Rate 07/312 98.2 72 15 160/94 115.8 95 07/31 2100 89 16 180/87 118 97 Room air 07/31 1957 91 17 201/100 133 97 Room air 07/31 1527 98.3 105 22 205/106 139 95 Room air Weight (kg): 91.000 BMI: 32.4 General: Patient is awake and alert, conversant, not in respiratory distressHEENT: Head is normocephalic and atraumatic. EOM is intact. No periorbital edema tachycardia sclerae normal external ear and naris. Neck:Neck is supple, range of motion is intactChest and lungs:Breath sounds symmetric and clear, no intercostal retractionCVS:Regular rhythm. No thrill. Palpable and equal radial pulses.Abdomen: Not distended, positive tenderness epigastric and right upper quadrant, positiveMurphy sign. Soft.Extremities:No edema or cyanosis, or gangrene both lower extremitiesNeuro: Patient is awake and alert, oriented. Nonfocal motor function and intact sensory to touch. Grossly intact cranial nerve function, speech is clear.Psych: Appropriate affect and thought contentSkin: No rash. Jaundice DIAGNOSTICS (Reviewed):Laboratory Tests: 07/31 1553 Chemistry Sodium (133 - 144 mmol/L) 136.0 Potassium (3.5 - 5.1 mmol/L) 3.4 L Chloride (95 - 105 mmol/L) 103 Carbon Dioxide (21 - 32 mmol/L) 25 Anion Gap (4.0 - 15.0 GAP calc) 8.0 BUN (7 - 18 MG/DL) 14 Creatinine (0.55 - 1.30 MG/DL) 0.84 Glucose (70 - 110 MG/DL) 107 Calcium (8.5 - 10.1 MG/DL) 9.7 Total Bilirubin (0.00 - 1.00 MG/DL) 6.17 H Direct Bilirubin (0.00 - 0.30 MG/DL) 5.40 H Indirect Bilirubin (0.2 - 1.3 MG/DL) 0.77 AST (15 - 37 Unit/L) 337 H ALT (12 - 78 Unit/L) 615 H Total Alk Phosphatase (45 - 117 Unit/L) 555 H Total Protein (6.4 - 8.2 G/DL) 7.8 Albumin (3.4 - 5.0 G/DL) 3.6 Lipase (114 - 286 Unit/L) 103 L Specimen Appearance (1 NORMAL Index/DL) 3 SMALL 5-10 MG Specimen Hemolysis (1 NORMAL Index/DL) 2 TRACE 10-25 MG Coagulation PT (9.4 - 12.5 SECONDS) 10.5 INR (0.88 - 1.13 INR Unit) 0.91 PTT (Gregg) (24 - 37.7 SECONDS) 39.5 H Hematology WBC (4.1 - 12.1 K/mm3) 9.1 RBC (3.8 - 5.5 M/mm3) 4.43 Hgb (10.6 - 15.8 G/DL) 13.8 Hct (31.8 - 47.4 %) 38.9 MCV (80.1 - 101.1 fL) 87.8 MCH (25.3 - 35.3 pg) 31.2 MCHC (32.7 - 35.1 G/DL) 35.5 H RDW (12.2 - 16.4 %) 15.1 Plt Count (155 - 337 K/mm3) 301 MPV (6.8 - 11.2 fL) 9.8 Recent Impressions:ULTRASOUND - [place] ABDOMEN [place] 07/31 2871 Report Impression - Status: SIGNED Entered: 07/31/2022 7995IMPRESSION:Contracted gallbladder. Potential gallbladder polyp towards the fundusversus sludge ball. This measures up to 5 mm. Follow-up in 6 monthsmay be beneficial.Impression By: [email or web address] - Titus Bajwa MD CAT SCAN - CT ABD PELVIS W/CONT 07/31 1635 Report Impression - Status: SIGNED Entered: 07/31/2022 1706IMPRESSION:1. Normal appendix. No evidence of acute abdominal abnormality.2. Mild sigmoid colon diverticulosis, without diverticulitis.Impression By: GregorioBC0 - Rosalino Castelna M.D. HOSPITAL COURSE, PRINCIPAL DIAGNOSES and PLAN OF CARE ABDOMINAL PAINABNORMAL LFTS (elev TBIl, ELev AST/ALT and ALk Phos)/Obst JaundicePossible PUD/GastritisPossible Choledocholithiasis entertained as etiology (CBD Upper limits of Normal (7-8 mm))No Fever, no WBC- doubt with CHolangitis- GI consulted- PPI given- MRCP performed- Surgical consultation with Dr. Washburn performed. [place] that patient was not in need of surgery- LFT's and bili improved with time- IVF were given Potential gallbladder polyp towards the fundus versus sludge ball. This measures up to 5 mm.- GI consultation with Dr. Steinberg obtained. As LFT's improved in subsequent days, there was likelihood that she had passed a gallstone ELEVATED BP with no H/O HTN- PRN IV BP Meds- Pain control given Hypokalemia- replaced dispo: continue cipro and flagyl. clinical picture and labs improving. monitored for signs of pancreatitis. supportive care and follow up am labs. Patient agreed to dc to home as she was tolerating diet and understands to return to the ER if any pain or medical concerns returned Med Rec Med RecDischarge meds:Start taking the following new medications:CIPROFLOXACIN (CIPRO) 500 MG TAB 500 MILLIGRAM ORAL TWICE DAILY. Qty = 6 No Refills metroNIDAZOLE (FLAGYL) 500 MG TAB 500 MILLIGRAM ORAL THREE TIMES A DAY. Qty = 9 No Refills ObjectiveVS/I OLast Documented: Result Date Time Pulse Ox 96 08/05 949 FiO2 21 08/05 949 O2 Delivery Room air 08/05 949 B/P 174/100 08/05 447 B/P Mean 124.5 08/05 447 Temp 98.8 08/05 447 Pulse 75 09/13 0447 Resp 14 08/05 0447 24 hour I O ending at 0700: 08/05 0700 08/04 1900 Intake Total 2850.00 Output Total Balance 2850.00 Intake, IV 1650.00 Intake, Oral 1200 Number Voids 7 PATIENT WEIGHT: Weight (lb): Weight (oz): Weight (kg): 91.000 Head/Eyes: atraumatic, clear cornea, EOMI, normocephalic, normal conjunctiva/sclera, normal fundi, normal eyelids/periorb., PERRLAENT: normal dentition, normal ear left, normal ear right, normal nose, normal pharynx, normal sinusNeck: full range of motion, non-tender, no bruit/NL carotids, no JVD, no lymphadenopathy, no masses or swelling, normal thyroid, supple/no meningismusBreast: symmetrical, no massCardiovascular: normal capillary refill, regular rate rhythmRespiratory: clear to auscultation, no distress, no tendernessGI: soft, non-tender, no guarding, no rebound, no distention, no mass/organomegaly, no pulsatile mass, no hernia, normal abdominal aorta Abdomen quadrants:LLQ normal bowel sounds, LUQ normal bowel sounds, RLQ normal bowel sounds, RUQ normal bowel soundsExtremities: moves all, no edema-all extremities, normal capillary refill, normal range of motion, normal sensory, normal motor functionMusculoskeletal: full range of motion, normal inspectionNeuro/EQUIPMENT ENGINEER: alert, oriented X 3Glasgow Coma Score: Elizabeth Coma Score: Response Value Elizabeth eyes: eyes open spontaneously 4 Víctor speech: oriented 5 Víctor motor: obeys commands 6 Total 15 Skin: dry, intact, no gross abnormalitiesLymphatic: axilla normal, inguinal normal, no lymphadenopathy, neck normalPsychiatry: no hallucinations, normal affect, normal judgment/insight, normal mood, not homicidal, not suicidal Discharge Instructions PCP)( Discharge to: Home/Self Care Discharge InstructionsAdditional Discharge Routines: [facility] Associate Follow-Up)( Diet: Cardiac at 0550 RPT #:[id number] OF REPORTDSDischarge ukxtcyf8323-07-14Z59:54:00B.[id number] ailable for patient eyhxAYYVLMRMYRAQIM1050-02-90K06:51:07 [facility] 2022-08-04 20:19:00 [id number] uCAWsKhFDunijH/GHVwjYHRyF6N7a njqaIM7upY+Y8buaie2+j24Bcbm5423-32-76F02:19:00 [facility] Progress NoteREPORT#:[id number] REPORT STATUS: SignedDATE:08/04/22 TIME: 2018 PATIENT: EMMIE TIMMONS UNIT #: [id number]#: [id number] [facility] AGE: 51 SEX: F ATTEND: Cony Peterson [facility] AUTHOR: Keshav Cobb MD * ALL edits or amendments must be made on the electronic/computer document * SubjectiveChief complaint:Abdominal PainHPI:DOS07.31.22 2300 HPIThis is a case of a 51-year-old female presented in the ED because of abdominal pain. The pain is located in the epigastric/right upper quadrant area. No radiation to the back. Described her stools to be "alcoholic/white and urine isorange in color. Described the pain to be more of heart burn. Symptoms started2 days prior to admission. With generalized pruritus. No rash. Patient deniedany fever or chills. Denied any melena, hematochezia or hematemesis. No dysuria hematuria. No syncope. She reports nausea and vomiting, has had no BM since 3 days prior to admission. Poor appetite. Food makes the abdominal pain worse and it also causes her to vomit. Generalized weakness. Patient subsequently presented in the ED because of intractable pain.Comments:no acute events. pt states pain is improved. Review of SystemsAll systems rev neg: except as marked Objective GeneralVS/I O:Vital Signs: Date Time Temp Pulse Resp B/P B/P Pulse O2 O2 Flow FiO2 Mean Ox Delivery Rate 08/04 1941 98.1 63 14 190/100 130.0 96 Room air 09/12 1607 97.9 62 15 152/84 106.6 97 Room air 08/04 1054 97.7 73 14 163/75 104.1 97 Room air 08/04 0748 98.6 80 16 207/124 151.8 96 Room air 08/04 0500 98.2 76 14 177/96 123.0 96 Room air 08/04 0100 98.2 72 13 169/91 116.8 97 Room air 08/03 2037 97.7 66 12 191/94 126.3 92 Room air 24 hour I O ending at 0700: 08/04 0700 08/03 1900 Intake Total Output Total Balance Number Voids 1 1 PATIENT WEIGHT: Weight (lb): Weight (oz): Weight (kg): 91.000 Physical ExamHead/Eyes: atraumatic, clear cornea, EOMI, normal conjunctiva/sclera, normal eyelids/periorb., normocephalic, PERRLENT: normal dentition, normal ear left, normal ear right, normal nose, normal pharynx, normal sinusNeck: full range of motion, non-tender, normal thyroid, supple/no meningismus, no bruit/NL carotids, no JVD, no masses or swellingCardiovascular: normal capillary refill, regular rate rhythmRespiratory: clear to auscultation, no distressAbdomen: non-tender, normal bowel sounds, soft, no distention, no guarding, no hernia, no mass/organomegaly, no reboundRectal: not indicatedExtremities: moves all, normal capillary refill, normal range of motion, no edemaMusculoskeletal: normal inspectionNeuro/EQUIPMENT ENGINEER: alert, oriented X 3Skin: dry, intactLymphatics: axilla normal, inguinal normal, neck normal, no lymphadenopathyPsychiatry: normal affect, normal judgment/insight, normal mood, not homicidal, not suicidal, no hallucinations Diagnosis, Assessment Plan Free Text DxA P NotesFree text DxA P notes:pt is a 51 yo female with the following ABDOMINAL PAINABNORMAL LFTS (elev TBIl, ELev AST/ALT and ALk Phos)/Obst JaundicePossible PUD/GastritisPossible Choledocholithiasis (CBD Upper limits of Normal (7-8 mm))No Fever, no WBC- doubt with CHolangitis- GI consulted- PPI- MRCP- Surgical consult pending GI recommendation- IVF Potential gallbladder polyp towards the fundus versus sludge ball. This measures up to 5 mm.- GI consulted ELEVATED BP with no H/O HTN- PRN IV BP Meds- Pain control Hypokalemia- replace dispo: continue cipro and flagyl. clinical picture and labs improving. monitor for signs of pancreatitis. supportive care and follow up am labs. dc to home in am if tolerating diet. at 2020 RPT #:[id number] OF REPORTPRProgress ecre3937-14-05H08:19:00B.[id number] able for patient cxhaSFBWHBGQRLOSQT2783-43-31N07:20:44 [facility] 2022-08-03 18:22:00 [id number] SKeKgzsRxF83mD0Z5mxOiERtUQY2344-55-89G93:22:00 [facility] CenterHospital[facility] Progress NoteREPORT#:[id number] REPORT STATUS: SignedDATE:08/03/22 TIME: 1821 PATIENT: EMMIE TIMMONS UNIT #: [id number]#: [id number] [facility] [birth year] AGE: 51 SEX: F ATTEND: Cony Peterson [facility] AUTHOR: Keshav Cobb MD * ALL edits or amendments must be made on the electronic/computer document * SubjectiveChief complaint:Abdominal PainHPI:DOS07.31.22 2300 HPIThis is a case of a 51-year-old female presented in the ED because of abdominal pain. The pain is located in the epigastric/right upper quadrant area. No radiation to the back. Described her stools to be "alcoholic/white and urine isorange in color. Described the pain to be more of heart burn. Symptoms started2 days prior to admission. With generalized pruritus. No rash. Patient deniedany fever or chills. Denied any melena, hematochezia or hematemesis. No dysuria hematuria. No syncope. She reports nausea and vomiting, has had no BM since 3 days prior to admission. Poor appetite. Food makes the abdominal pain worse and it also causes her to vomit. Generalized weakness. Patient subsequently presented in the ED because of intractable pain.Comments:abdominal pain improving. Review of SystemsAll systems rev neg: except as marked Objective GeneralVS/I O:Vital Signs: Date Time Temp Pulse Resp B/P B/P Pulse O2 O2 Flow FiO2 Mean Ox Delivery Rate 08/03 1600 97.9 72 13 143/91 108.3 97 Room air 08/03 1130 98.2 73 166/92 116.6 97 08/03 0758 98.6 67 18 192/103 132.6 97 08/03 0731 75 200/109 139.5 08/03 0554 98.6 88 14 209/94 131.9 98 Room air 08/03 0052 98.1 64 14 162/79 106.6 96 Room air 08/02 1926 97.9 73 13 153/77 102.8 95 Room air 24 hour I O ending at 0700: 08/03 0700 08/02 1900 Intake Total 2612.00 Output Total 2850 Balance -238.00 Intake, IV 1700.00 Intake, Oral 912 Output, Urine 2850 PATIENT WEIGHT: Weight (lb): Weight (oz): Weight (kg): 91.000 Physical ExamHead/Eyes: atraumatic, clear cornea, EOMI, normal conjunctiva/sclera, normal eyelids/periorb., normocephalic, PERRLENT: normal dentition, normal ear left, normal ear right, normal nose, normal pharynx, normal sinusNeck: full range of motion, non-tender, normal thyroid, supple/no meningismus, no bruit/NL carotids, no JVD, no masses or swellingCardiovascular: normal capillary refill, regular rate rhythmRespiratory: clear to auscultation, no distressAbdomen: non-tender, normal bowel sounds, soft, no distention, no guarding, no hernia, no mass/organomegaly, no reboundRectal: not indicatedExtremities: moves all, normal capillary refill, normal range of motion, no edemaMusculoskeletal: normal inspectionNeuro/EQUIPMENT ENGINEER: alert, oriented X 3Skin: dry, intactLymphatics: axilla normal, inguinal normal, neck normal, no lymphadenopathyPsychiatry: normal affect, normal judgment/insight, normal mood, not homicidal, not suicidal, no hallucinations Diagnosis, Assessment Plan Free Text DxA P NotesFree text DxA P notes:pt is a 51 yo female with the following ABDOMINAL PAINABNORMAL LFTS (elev TBIl, ELev AST/ALT and ALk Phos)/Obst JaundicePossible PUD/GastritisPossible Choledocholithiasis (CBD Upper limits of Normal (7-8 mm))No Fever, no WBC- doubt with CHolangitis- GI consulted- PPI- MRCP- Surgical consult pending GI recommendation- IVF Potential gallbladder polyp towards the fundus versus sludge ball. This measures up to 5 mm.- GI consulted ELEVATED BP with no H/O HTN- PRN IV BP Meds- Pain control Hypokalemia- replace dispo: continue cipro and flagyl. clinical picture and labs improving. monitor for signs of pancreatitis. supportive care and follow up am labs. anticipate dc soon once pain is improved and pt is tolerating diet. at 1823 RPT #:[id number] OF REPORTPRProgress [id number]:22:00B.[id number] able for patient izftZSWQEEEMZSTWYP1231-28-07S98:24:03 [facility] 2022-08-02 17:58:00 [id number] [id number] 2gNYW7ToDyY1GxNzEg1r6mbYB3k0509-42-98S90:58:[address] [facility] ([facility])Hospitalist Progress NoteREPORT#:[id number] REPORT STATUS: SignedDATE:08/02/22 TIME: 175 PATIENT: EMMIE TIMMONS UNIT #: [id number]#: [id number] [facility] [birth year] AGE: 51 SEX: F ATTEND: Cony Peterson [facility] AUTHOR: Keshav Cobb MD * ALL edits or amendments must be made on the electronic/computer document * SubjectiveChief complaint:Abdominal PainHPI:DOS07.31.22 2300 HPIThis is a case of a 51-year-old female presented in the ED because of abdominal pain. The pain is located in the epigastric/right upper quadrant area. No radiation to the back. Described her stools to be "alcoholic/white and urine isorange in color. Described the pain to be more of heart burn. Symptoms started2 days prior to admission. With generalized pruritus. No rash. Patient deniedany fever or chills. Denied any melena, hematochezia or hematemesis. No dysuria hematuria. No syncope. She reports nausea and vomiting, has had no BM since 3 days prior to admission. Poor appetite. Food makes the abdominal pain worse and it also causes her to vomit. Generalized weakness. Patient subsequently presented in the ED because of intractable pain.Comments:abd pain and nausea continue Review of SystemsAll systems rev neg: except as marked Objective GeneralVS/I O:Vital Signs: Date Time Temp Pulse Resp B/P B/P Pulse O2 O2 Flow FiO2 Mean Ox Delivery Rate 08/02 1714 67 170/92 117.8 97 08/02 1518 97.9 68 20 168/82 110.8 97 08/02 1217 70 164/94 117.1 93 08/02 1110 97.9 72 16 179/108 131.3 96 08/02 1056 96 Room air 21 08/02 0916 97.5 75 20 189/100 129.8 96 08/02 0914 76 192/81 118.2 08/02 0743 98.2 72 16 193/97 128.9 97 08/02 0529 98.6 69 15 153/95 114.3 96 08/02 0002 97.5 65 13 165/102 122.7 96 Room air 08/01 1950 68 13 170/96 120.6 98 Room air 08/01 1809 75 159/75 103.1 95 24 hour I O ending at 0700: 08/02 0700 08/01 1900 Intake Total 1900.00 2200.00 Output Total Balance 1900.00 2200.00 Intake, IV 1200.00 1200.00 Intake, Oral 700 1000 Number Voids 2 4 PATIENT WEIGHT: Weight (lb): Weight (oz): Weight (kg): 91.000 Physical ExamGeneral appearance: alert, awakeHead/Eyes: atraumatic, clear cornea, EOMI, normal conjunctiva/sclera, normal eyelids/periorb., normocephalic, PERRLENT: normal dentition, normal ear left, normal ear right, normal nose, normal pharynx, normal sinusNeck: full range of motion, non-tender, normal thyroid, supple/no meningismus, no bruit/NL carotids, no JVD, no masses or swellingCardiovascular: normal capillary refill, regular rate rhythmRespiratory: clear to auscultation, no distressAbdomen: non-tender, normal bowel sounds, soft, no distention, no guarding, no hernia, no mass/organomegaly, no reboundRectal: not indicatedExtremities: moves all, normal capillary refill, normal range of motion, no edemaMusculoskeletal: normal inspectionNeuro/EQUIPMENT ENGINEER: alert, oriented X 3Skin: dry, intactLymphatics: axilla normal, inguinal normal, neck normal, no lymphadenopathyPsychiatry: normal affect, normal judgment/insight, normal mood, not homicidal, not suicidal, no hallucinations ResultsResults: labs reviewed, vital signs stable Diagnosis, Assessment Plan Free Text DxA P NotesFree text DxA P notes:pt is a 51 yo female with the following ABDOMINAL PAINABNORMAL LFTS (elev TBIl, ELev AST/ALT and ALk Phos)/Obst JaundicePossible PUD/GastritisPossible Choledocholithiasis (CBD Upper limits of Normal (7-8 mm))No Fever, no WBC- doubt with CHolangitis- GI consulted- PPI- MRCP- Surgical consult pending GI recommendation- IVF Potential gallbladder polyp towards the fundus versus sludge ball. This measures up to 5 mm.- GI consulted ELEVATED BP with no H/O HTN- PRN IV BP Meds- Pain control Hypokalemia- replace dispo: continue cipro and flagyl. await general surgery and gi recommendations for cholecystectomy vs ercp. monitor for signs of pancreatitis. supportive care and follow up am labs. at 1801 RPT #:[id number] OF REPORTPRProgress [id number]:58:00B.[id number] able for patient zvgoIZMQVZOBLLJZZM2448-97-38N89:01:55 [facility] 2022-08-02 13:05:00 [id number] rn7hpvjvGkwcWQbXojdaS+gaPAARI z1AiuT4Vg3Cgh6UBne45057FVhq0833-50-42H74:05:00 [facility])General Surgery Consult NoteREPORT#:[id number] REPORT STATUS: SignedDATE:08/02/22 TIME: 1305 PATIENT: EMMIE TIMMONS UNIT #: [id number]#: [id number] [facility] [birth year] AGE: 51 SEX: F ATTEND: Cony Peterson [facility] AUTHOR: Dario Washburn MD * ALL edits or amendments must be made on the electronic/computer document * History of Present IllnessRequesting Clinician: Dr. Lester for consult:Abdominal painChief complaint:Abdominal painHPI:51-year-old female who presents with epigastric and right upper quadrant pain associated with nausea and vomiting. She denies similar episodes of pain. She has mild jaundice with elevated bilirubin and liver enzymes. CT scan demonstrates a contracted gallbladder. Ultrasound similarly shows a contracted gallbladder without evidence of gallstones, 3.6 mm gallbladder wall and 8 mm common bile duct. MRCP without evidence of common bile duct obstruction. Whiteblood cell count is normal. History - Adult longitudinalAdditional medical history:Patient denies chronic medical illnessesAdditional surgical history:DeniesAdditional family history:Reviewed, noncontributory to this admissionAlcohol use: Denies EtOH useDrug use: Denies recreational drugsSmoking status: Smoking status for patients 13 years old or older: Never Smoker Date last smoked: 07/31/22 Packs per day: 0.5Allergies:Coded Allergies:Penicillins (Severe, ANAPHYLAXIS 07/31/22)morphine (Intermediate, RASH; HEADACHE 07/31/22)clindamycin (ANAPHYLAXIS 07/31/22) Review of SystemsConstitutional:Denies: chills, fever. Respiratory:Denies: SOB, wheezing. Cardiovascular:Denies: chest pain, palpitations. GI:Reports: abdominal pain, nausea, vomiting. Objective Physical ExamVS/I OLast Documented: Result Date Time Pulse Ox 93 08/02 1217 B/P 164/94 08/02 1217 B/P Mean 117.1 08/02 1217 Pulse 70 08/02 1217 Temp 97.9 08/02 1110 Resp 16 08/02 1110 FiO2 21 08/02 1056 O2 Delivery Room air 08/02 1056 Vital SignsDate Temp Pulse Resp B/P B/P Mean Pulse Ox EzP533/-08/02 97.5-98.6 65-79 13-20 153-193/75-11 103.1-137.5 93-98 21 0 24 hour I O ending at 0700: 08/02 0700 08/01 1900 Intake Total 1900.00 2200.00 Output Total Balance 1900.00 2200.00 Intake, IV 1200.00 1200.00 Intake, Oral 700 1000 Number Voids 2 4 PATIENT WEIGHT: Weight (lb): Weight (oz): Weight (kg): 91.000 General appearance: obese, awake, no respiratory distressHEENT: PERRL, ictericNeck: non-tender, supple/no meningismusRespiratory: aerating well, no distressAbdomen: Mild epigastric and RUQ tenderness without guarding or rebound tenderness.Extremities: no edemaNeuro/EQUIPMENT ENGINEER: alert, normal speech, no motor deficitsSkin: mild jaundice ResultsFindings/Data:Laboratory Tests: 08/02 0505 Chemistry Sodium (133 - 144 mmol/L) 135.0 Potassium (3.5 - 5.1 mmol/L) 3.3 L Chloride (95 - 105 mmol/L) 101 Carbon Dioxide (21 - 32 mmol/L) 27 Anion Gap (4.0 - 15.0 GAP calc) 7.0 BUN (7 - 18 MG/DL) 9 Creatinine (0.55 - 1.30 MG/DL) 0.68 Glomerular Filtr Rate (>60 estGFR) 92 Glucose (70 - 110 MG/DL) 90 Calcium (8.5 - 10.1 MG/DL) 9.5 Total Bilirubin (0.00 - 1.00 MG/DL) 6.22 H Direct Bilirubin (0.00 - 0.30 MG/DL) 5.04 H Indirect Bilirubin (0.2 - 1.3 MG/DL) 1.18 AST (15 - 37 Unit/L) 273 H ALT (12 - 78 Unit/L) 500 H Total Alk Phosphatase (45 - 117 Unit/L) 545 H Total Protein (6.4 - 8.2 G/DL) 6.8 Albumin (3.4 - 5.0 G/DL) 3.1 L Albumin/Globulin Ratio (1.2 - 2.2 RATIO) 0.8 L Specimen Appearance (1 NORMAL Index/DL) 3 SMALL 5-10 MG Specimen Hemolysis (1 NORMAL Index/DL) 2 TRACE 10-25 MG Hematology WBC (4.1 - 12.1 K/mm3) 7.7 RBC (3.8 - 5.5 M/mm3) 4.06 Hgb (10.6 - 15.8 G/DL) 12.7 Hct (31.8 - 47.4 %) 35.2 MCV (80.1 - 101.1 fL) 86.7 MCH (25.3 - 35.3 pg) 31.3 MCHC (32.7 - 35.1 G/DL) 36.1 H RDW (12.2 - 16.4 %) 15.5 Plt Count (155 - 337 K/mm3) 280 MPV (6.8 - 11.2 fL) 10.3 Gran % (37.8 - 82.6 %) 71.2 Lymph % (Auto) (14.1 - 45.4 %) 14.5 Fannin % (Auto) (2.5 - 11.7 %) 9.6 Eos % (Auto) (0.0 - 6.2 %) 3.0 Baso % (Auto) (0.0 - 2.1 %) 1.0 Gran # (2.0 - 13.7 k/mm3) 5.46 Lymph # (Auto) (0.6 - 3.8 K/mm3) 1.11 Fannin # (Auto) (0.11 - 0.59 K/mm3) 0.74 H Eos # (Auto) (0.0 - 0.4 K/mm3) 0.23 Baso # (Auto) (0.0 - 0.1 K/mm3) 0.08 Immature Gran % (0.0 - 2.0 %) 0.7 Nucleated RBC % (0.0 - 1.0 /100WBC%) 0.0 Nucleated RBCs # (0.0 - 0.05 K/mm3) 0.00 Results: labs reviewed, vital signs reviewed, CT results reviewed, MRI results reviewed, US results reviewed, US, CT and MRCP images personally reviewed Diagnosis, Assessment PlanProblem List/A P: 1. Elevated liver enzymes 2. Jaundice Free Text DxA P NotesFree Text DxA P Notes:51-year-old female admitted with epigastric and right upper quadrant pain with elevated bilirubin, AST, ALT and alkaline phosphatase. Gallbladder is without gallstones and contracted. The imagers were thoroughly reviewed. There is no radiological evidence to suggest cholecystitis.There is no indication for cholecystectomy or cholecystectomy with intraoperative cholangiogram. In fact, there is no indication for surgical intervention with this scenario.Recommend GI follow-up and medical management.Will sign off. at 1328 RPT #:[id number] OF REPORTGDPvpgazkxeesc1812-36-83L08:05:00B.PDOC2 [id number] for patient crdpOCFUCZWDLHGUQP4866-97-00K33:29:00 [facility] 2022-08-01 18:49:00 [id number] 43BnM7JTM0fpzwy7AEFSgah9dur2s sMUZNn67aJdrlzRhWF0mWwcHVJB1414-94-32Z21:49:[address] [facility] ([facility])GE Consultation NoteREPORT#:[id number] REPORT STATUS: SignedDATE:08/01/22 TIME: 1848 PATIENT: EMMIE TIMMONS UNIT #: [id number]#: [id number] [facility] [birth year] AGE: 51 SEX: F ATTEND: Cony Peterson [facility] AUTHOR: Jean Paul Steinberg MD * ALL edits or amendments must be made on the electronic/computer document * History of Present IllnessRequesting clinician: Raoul Hugo for consult:Abdominal pain and elevated liver testsChief complaint:abdominal painHPI:51-y/o female admitted with abdominal pain. The pain is located in the epigastric/right upper quadrant area. No radiation to the back. Described her stools to be "alcoholic/white and urine is orange in color for the past 3 days. Described the pain to be more of heart burn. Symptoms started 2 days prior to admission. No rash. Patient denied any fever or chills. Denied any melena, hematochezia or hematemesis. No dysuria hematuria. No syncope. She reports nausea and vomiting, has had no BM since 3 days prior to admission. US and MRCP showed sludge. No biliary dilation. History - Adult longitudinalAdditional medical history:Patient denies chronic medical illnessesAdditional surgical history:DeniesAdditional family history:Reviewed, noncontributory to this admissionAlcohol use: Denies EtOH useDrug use: Denies recreational drugsSmoking status: Smoking status for patients 13 years old or older: Never Smoker Date last smoked: 07/31/22 Packs per day: 0.5Allergies:Coded Allergies:Penicillins (Severe, ANAPHYLAXIS 07/31/22)morphine (Intermediate, RASH; HEADACHE 07/31/22)clindamycin (ANAPHYLAXIS 07/31/22) Review of SystemsGI:Reports: abdominal pain. All systems rev neg: except as marked Objective Physical ExamVS/I O:Last Documented: Result Date Time Pulse Ox 95 08/01 1809 B/P 159/75 08/01 1809 B/P Mean 103.1 08/01 1809 Pulse 75 08/01 1809 O2 Delivery Room air 08/01 1532 Temp 97.9 08/01 1532 Resp 16 08/01 1532 24 hour I O ending at 0700: 08/01 0700 07/31 1900 Intake Total 1000.00 Output Total Balance 1000.00 Intake, IV 1000.00 Number 0 Bowel Movements Number Voids 4 Patient 91 kg Weight Weight Estimated Measurement Method PATIENT WEIGHT: Weight (lb): Weight (oz): Weight (kg): 91.000 Medications:Active Meds + DC'd Last 24 HrsLactated Ringer's (LACTATED RINGERS) 1,000 ML .Q10H IV Diphenhydramine HCl (BENADRYL) 25 MG BID PRN PO Hydrocodone Bitart/Acetaminophen (NORCO 5/325 TABLET) 1 TAB Q6H PRN PRN PO Clonidine HCl (CATAPRES) 0.1 MG Q6H PRN PRN PO Pantoprazole (PROTONIX) 40 MG BID IV Hydromorphone HCl (DILAUDID) 1 MG Q4H PRN PRN IV Magnesium Sulfate (MAGNESIUM SULFATE 2GM/50ML BAG) 50 ML Q1H PRN PRN IV Magnesium Sulfate/Dextrose (MAGNESIUM SULFATE 1GM/D5W 100ML) 100 ML ASDIR PRN IV Nitroglycerin (NITRO-BID 2%) 1 INCH ONCE ONE TOPICAL (DC) Potassium Chloride (KCL 10 MEQ/100ML) 100 ML Q1H PRN PRN IV Potassium Chloride (KCL 10 MEQ/100ML) 100 ML Q1H PRN PRN IV Potassium Chloride (KCL 10 MEQ/100ML) 100 ML Q1H PRN PRN IV Potassium Chloride/Dextrose/Sod Cl (D5.45NS/KCL 10MEQ) 1,000 ML .Q10H IV Potassium Phos/Sodium Phos (PHOS-NAK PACKET) 1 PKT ASDIR PRN PO (CKD) Hydralazine HCl (APRESOLINE) 20 MG Q4H PRN PRN IV Labetalol HCl (TRANDATE MDV) 20 MG Q4H PRN PRN IV Acetaminophen (TYLENOL) 650 MG Q6H PRN PRN PO Hydralazine HCl (APRESOLINE) 10 MG Q4H PRN PRN IV Hydrocodone Bitart/Acetaminophen (NORCO 5/325 TABLET) 1 TAB Q4H PRN PRN PO (DC) Hydrocodone Bitart/Acetaminophen (NORCO 7.5/325 TABLET) 1 TAB Q4H PRN PRN PO (DC) Hydromorphone HCl (DILAUDID) 0.5 MG Q4H PRN PRN IV Lactated Ringer's (LACTATED RINGERS) 1,000 ML .Q10H IV (DC) Ondansetron HCl (ZOFRAN) 4 MG Q4H PRN PRN IV Potassium Chloride (K-DUR) 20 MEQ ONCE ONE PO (DC) Fentanyl Citrate (SUBLIMAZE) 50 MCG X1ED STA IV (DC) Ondansetron HCl (ZOFRAN) 4 MG X1ED STA IV (DC) Sodium Chloride (SODIUM CHLORIDE 0.9% 1000 ML) 1,000 ML X1ED STA IV (DC) General appearance: chronically ill appearing, alert, awake, orientedHEENT: atraumatic (icteric sclerae)Neck: supple/no meningismus, no JVDCardiovascular: normal S1/S2, no murmurRespiratory: clear to auscultationAbdomen: normal bowel sounds, soft, no distention, no guarding, no hernia (epigastric and RUQ TTP)Extremities: no clubbing, no cyanosis, no edemaMusculoskeletal: normal inspectionNeuro/EQUIPMENT ENGINEER: alert, oriented X 3, normal speech, no motor deficitsSkin: dry, no ecchymosis, no rashLymphatics: no lymphadenopathyPsychiatry: anxious ResultsRadiology data:Recent Impressions:[facility] - MRI MRCP 08/01 932 Report Impression - Status: SIGNED Entered: 08/01/2022 1014 IMPRESSION: 1. Thickened gallbladder wall with a trace amount of pericholecysticfluid, findings which may reflect underlying acalculous cholecystitis.There is no biliary dilatationImpression By: Edilma - Mila Leigh MD Results: no new labs, labs reviewed, vital signs reviewed, CT results reviewed, MRI results reviewed, US results reviewed, current med profile rev'd Diagnosis, Assessment Plan Free Text DxA P NotesFree Text DxA P Notes:1. Abdominal pain right upper quadrant as well as elevated liver enzymes possible acute cholecystitis, sludge has been reported on imaging.2. Elevated liver enzymes could also be intrinsic liver issue, patient drinks alcoholic tea therefore possible acute alcoholic hepatitis related cholestasis as well. Possible underlying early cirrhosis as well. Possible autoimmune liver disease as well. MRCP reviewed. No biliary ductal dilation noted. PlanRecommend general surgery consult for possible cholecystectomy with IOC. If IOCis abnormal will recommend ERCP.Alcohol cessationFollow-up with a community GI MD as an outpatient for further evaluation of elevated liver enzymes.Rest of management per primary teamAll questions answered. at 1859 RPT #:[id number] OF REPORTNEQazhyfqidibt2908-46-63P76:49:00B.PDOC2 [id number] for patient nkflURQCXINTTNZKOI3887-31-54U81:00:54 [facility] 2022-08-01 09:14:00 [id number] hn2dCt+xZtliLufcWBwrozNrnbfuu KwsK9QTVm6zFj2+u2ZbAd4dt32+0033-15-24U62:14:00 [facility] CenterHospitalist Progress NoteREPORT#:[id number] REPORT STATUS: SignedDATE:08/01/22 TIME: 913 PATIENT: EMMIE TIMMONS UNIT #: [id number]#: [id number] [address] [birth year] AGE: 51 SEX: F ATTEND: Cony Peterson AUTHOR: Cony Peterson MD * ALL edits or amendments must be made on the electronic/computer document * SubjectiveChief complaint:Abdominal PainHPI:DOS07.31.22 2300 HPIThis is a case of a 51-year-old female presented in the ED because of abdominal pain. The pain is located in the epigastric/right upper quadrant area. No radiation to the back. Described her stools to be "alcoholic/white and urine isorange in color. Described the pain to be more of heart burn. Symptoms started2 days prior to admission. With generalized pruritus. No rash. Patient deniedany fever or chills. Denied any melena, hematochezia or hematemesis. No dysuria hematuria. No syncope. She reports nausea and vomiting, has had no BM since 3 days prior to admission. Poor appetite. Food makes the abdominal pain worse and it also causes her to vomit. Generalized weakness. Patient subsequently presented in the ED because of intractable pain. Free Text Subj NotesFree Text Subj Notes:Plan for MRCP today Objective GeneralVS/I O:Vital Signs: Date Time Temp Pulse Resp B/P B/P Pulse O2 O2 Flow FiO2 Mean Ox Delivery Rate 08/03 0052 98.1 64 14 162/79 106.6 96 Room air 08/02 1926 97.9 73 13 153/77 102.8 95 Room air 08/02 1714 67 170/92 117.8 97 08/02 1518 97.9 68 20 168/82 110.8 97 08/02 1217 70 164/94 117.1 93 08/02 1110 97.9 72 16 179/108 131.3 96 08/02 1056 96 Room air 21 08/02 0916 97.5 75 20 189/100 129.8 96 08/02 0914 76 192/81 118.2 08/02 0743 98.2 72 16 193/97 128.9 97 08/02 0529 98.6 69 15 153/95 114.3 96 24 hour I O ending at 0700: 08/03 0700 08/02 1900 Intake Total 2612.00 Output Total 2850 Balance -238.00 Intake, IV 1700.00 Intake, Oral 912 Output, Urine 2850 PATIENT WEIGHT: Weight (lb): Weight (oz): Weight (kg): 91.000 Medications:Active Meds + DC'd Last 24 HrsMetronidazole HCl (FLAGYL 500MG/NS 100 ML) 100 ML Q8HR IV Dicyclomine HCl (BENTYL) 20 MG QID PO Ciprofloxacin/Dextrose (CIPRO/D5W 400 MG/200 ML) 200 ML Q12H IV Labetalol HCl (TRANDATE MDV) 10 MG Q4H PRN PRN IV (CAN) Lactated Ringer's (LACTATED RINGERS) 1,000 ML .Q10H IV Diphenhydramine HCl (BENADRYL) 25 MG BID PRN PO Hydrocodone Bitart/Acetaminophen (NORCO 5/325 TABLET) 1 TAB Q6H PRN PRN PO Clonidine HCl (CATAPRES) 0.1 MG Q6H PRN PRN PO Pantoprazole (PROTONIX) 40 MG BID IV Hydromorphone HCl (DILAUDID) 1 MG Q4H PRN PRN IV Magnesium Sulfate (MAGNESIUM SULFATE 2GM/50ML BAG) 50 ML Q1H PRN PRN IV Magnesium Sulfate/Dextrose (MAGNESIUM SULFATE 1GM/D5W 100ML) 100 ML ASDIR PRN IV Potassium Chloride (KCL 10 MEQ/100ML) 100 ML Q1H PRN PRN IV Potassium Chloride (KCL 10 MEQ/100ML) 100 ML Q1H PRN PRN IV Potassium Chloride (KCL 10 MEQ/100ML) 100 ML Q1H PRN PRN IV Potassium Phos/Sodium Phos (PHOS-NAK PACKET) 1 PKT ASDIR PRN PO (CKD) Hydralazine HCl (APRESOLINE) 20 MG Q4H PRN PRN IV Labetalol HCl (TRANDATE MDV) 20 MG Q4H PRN PRN IV Acetaminophen (TYLENOL) 650 MG Q6H PRN PRN PO Hydralazine HCl (APRESOLINE) 10 MG Q4H PRN PRN IV Hydromorphone HCl (DILAUDID) 0.5 MG Q4H PRN PRN IV Ondansetron HCl (ZOFRAN) 4 MG Q4H PRN PRN IV ResultsFindings/Data:Laboratory Tests 08/02 0505 Chemistry Sodium (133 - 144 mmol/L) 135.0 Potassium (3.5 - 5.1 mmol/L) 3.3 L Chloride (95 - 105 mmol/L) 101 Carbon Dioxide (21 - 32 mmol/L) 27 Anion Gap (4.0 - 15.0 GAP calc) 7.0 BUN (7 - 18 MG/DL) 9 Creatinine (0.55 - 1.30 MG/DL) 0.68 Glomerular Filtr Rate (>60 estGFR) 92 Glucose (70 - 110 MG/DL) 90 Calcium (8.5 - 10.1 MG/DL) 9.5 Total Bilirubin (0.00 - 1.00 MG/DL) 6.22 H Direct Bilirubin (0.00 - 0.30 MG/DL) 5.04 H Indirect Bilirubin (0.2 - 1.3 MG/DL) 1.18 AST (15 - 37 Unit/L) 273 H ALT (12 - 78 Unit/L) 500 H Total Alk Phosphatase (45 - 117 Unit/L) 545 H Total Protein (6.4 - 8.2 G/DL) 6.8 Albumin (3.4 - 5.0 G/DL) 3.1 L Albumin/Globulin Ratio (1.2 - 2.2 RATIO) 0.8 L Specimen Appearance (1 NORMAL Index/DL) 3 SMALL 5-10 MG Specimen Hemolysis (1 NORMAL Index/DL) 2 TRACE 10-25 MG Laboratory Tests 08/02 0505 Hematology WBC (4.1 - 12.1 K/mm3) 7.7 RBC (3.8 - 5.5 M/mm3) 4.06 Hgb (10.6 - 15.8 G/DL) 12.7 Hct (31.8 - 47.4 %) 35.2 MCV (80.1 - 101.1 fL) 86.7 MCH (25.3 - 35.3 pg) 31.3 MCHC (32.7 - 35.1 G/DL) 36.1 H RDW (12.2 - 16.4 %) 15.5 Plt Count (155 - 337 K/mm3) 280 MPV (6.8 - 11.2 fL) 10.3 Gran % (37.8 - 82.6 %) 71.2 Lymph % (Auto) (14.1 - 45.4 %) 14.5 [place]ann[place] % (Auto) (2.5 - 11.7 %) 9.6 Eos % (Auto) (0.0 - 6.2 %) 3.0 Baso % (Auto) (0.0 - 2.1 %) 1.0 Gran # (2.0 - 13.7 k/mm3) 5.46 Lymph # (Auto) (0.6 - 3.8 K/mm3) 1.11 [place] # (Auto) (0.11 - 0.59 K/mm3) 0.74 H Eos # (Auto) (0.0 - 0.4 K/mm3) 0.23 Baso # (Auto) (0.0 - 0.1 K/mm3) 0.08 Immature Gran % (0.0 - 2.0 %) 0.7 Nucleated RBC % (0.0 - 1.0 /100WBC%) 0.0 Nucleated RBCs # (0.0 - 0.05 K/mm3) 0.00 Results: labs reviewed, vital signs reviewed Free Text Obj NotesFree Text Obj Notes:General appearance: alert, awakeHead/Eyes: atraumatic, clear cornea, EOMI, normal conjunctiva/sclera, normal eyelids/periorb., normocephalic, PERRLNeck: full range of motion, non-tender, normal thyroid, supple/no meningismus, no bruit/NL carotids, no JVD, no masses or swellingCardiovascular: normal capillary refill, regular rate rhythmRespiratory: CTABAbdomen: non TTP. Normal bowel sounds, soft, no distention, no guarding, no hernia, no mass/organomegaly, no reboundExtremities: moves all, normal capillary refill, normal range of motion, no edemaMusculoskeletal: normal inspectionNeuro/EQUIPMENT ENGINEER: alert, oriented X 3Skin: dry, intactPsychiatry: normal affect, normal judgment/insight, normal mood, not homicidal, not suicidal, no hallucinations Diagnosis, Assessment Plan Free Text DxA P NotesFree text DxA P notes: ABDOMINAL PAINABNORMAL LFTS (elev TBIl, ELev AST/ALT and ALk Phos)/Obst JaundicePossible PUD/GastritisPossible Choledocholithiasis (CBD Upper limits of Normal (7-8 mm))No Fever, no WBC- doubt with CHolangitis- GI consulted- PPI- MRCP Was counseled by GI post MRCP, they recommend surgical consult. Consult placed and notified- IVF Potential gallbladder polyp towards the fundus versus sludge ball. This measures up to 5 mm.- GI consulted ELEVATED BP with no H/O HTN- PRN IV BP Meds- Pain control Hypokalemia- replace QUALITY:DVT PROPHYLAXIS ordered: SCD. Defer Pharmacological prophylaxis for surgery plan at 0209 RPT #:[id number] OF REPORTPRProgress vmqa3784-00-42Q19:14:00B.[id number] able for patient sgucVXHZVCGMPEHDRN6441-37-08Y19:09:45 [facility] 2022-08-01 08:17:00 [id number] l0bhTrkTJ8kvqv4vpfw9kDExwhszq wcc3kky6K79x6a8eguodXxEaA1d1760-70-28G76:17:[address] [facility] ([facility] History PhysicalREPORT#:[id number] REPORT STATUS: SignedDATE:08/01/22 TIME: 816 PATIENT: EMMIE TIMMONS UNIT #: [id number]#: [id number] ROOM[facility]BED: [facility]-WDOB: [birth year] AGE: 51 SEX: F ATTEND: SekoujayClaudeguilherme Yan [facility] AUTHOR: Natalee Ponce MD * ALL edits or amendments must be made on the electronic/computer document * History of Present Illness HPIChief complaint:Abdominal Pain PCP:PCP: No Primary or Family Physician HPI:DOS07.31.22 2300 HPIThis is a case of a 51-year-old female presented in the ED because of abdominal pain. The pain is located in the epigastric/right upper quadrant area. No radiation to the back. Described her stools to be "alcoholic/white and urine isorange in color. Described the pain to be more of heart burn. Symptoms started2 days prior to admission. With generalized pruritus. No rash. Patient deniedany fever or chills. Denied any melena, hematochezia or hematemesis. No dysuria hematuria. No syncope. She reports nausea and vomiting, has had no BM since 3 days prior to admission. Poor appetite. Food makes the abdominal pain worse and it also causes her to vomit. Generalized weakness. Patient subsequently presented in the ED because of intractable pain. History Past Medical Surgical HxAdditional medical history:Patient denies chronic medical illnesses Additional surgical history:Denies Family HistoryAdditional family history:Reviewed, noncontributory to this admission Social HistoryAlcohol use: Denies EtOH useDrug use: Denies recreational drugsSmoking status: Smoking status for patients 13 years old or older: Never Smoker Medication/Allergy-Vaccine HxAllergies:Coded Allergies:Penicillins (Severe, ANAPHYLAXIS 07/31/22)morphine (Intermediate, RASH; HEADACHE 07/31/22)clindamycin (ANAPHYLAXIS 07/31/22) Review of Systems Free Text ROS NotesFree Text ROS Notes:14 point review of system performed and pertinent findings as mentioned HPI Otherwise, the rest of the ROS is negative and none contributory to this admission and HPI. Physical ExamVS/I O:Vital Signs Date Time Temp Pulse Resp B/P B/P Pulse O2 O2 Flow FiO2 Mean Ox Delivery Rate 07/31 2152 98.2 72 15 160/94 115.8 95 07/31 2100 89 16 180/87 118 97 Room air 07/31 1957 91 17 201/100 133 97 Room air 07/31 1527 98.3 105 22 205/106 139 95 Room air Weight (kg): 91.000 BMI: 32.4 General: Patient is awake and alert, conversant, not in respiratory distressHEENT: Head is normocephalic and atraumatic. EOM is intact. No periorbital edema tachycardia sclerae normal external ear and naris. Neck:Neck is supple, range of motion is intactChest and lungs:Breath sounds symmetric and clear, no intercostal retractionCVS:Regular rhythm. No thrill. Palpable and equal radial pulses.Abdomen: Not distended, positive tenderness epigastric and right upper quadrant, positiveMurphy sign. Soft.Extremities:No edema or cyanosis, or gangrene both lower extremitiesNeuro: Patient is awake and alert, oriented. Nonfocal motor function and intact sensory to touch. Grossly intact cranial nerve function, speech is clear.Psych: Appropriate affect and thought contentSkin: No rash. Jaundice DIAGNOSTICS (Reviewed):Laboratory Tests: 07/31 1553 Chemistry Sodium (133 - 144 mmol/L) 136.0 Potassium (3.5 - 5.1 mmol/L) 3.4 L Chloride (95 - 105 mmol/L) 103 Carbon Dioxide (21 - 32 mmol/L) 25 Anion Gap (4.0 - 15.0 GAP calc) 8.0 BUN (7 - 18 MG/DL) 14 Creatinine (0.55 - 1.30 MG/DL) 0.84 Glucose (70 - 110 MG/DL) 107 Calcium (8.5 - 10.1 MG/DL) 9.7 Total Bilirubin (0.00 - 1.00 MG/DL) 6.17 H Direct Bilirubin (0.00 - 0.30 MG/DL) 5.40 H Indirect Bilirubin (0.2 - 1.3 MG/DL) 0.77 AST (15 - 37 Unit/L) 337 H ALT (12 - 78 Unit/L) 615 H Total Alk Phosphatase (45 - 117 Unit/L) 555 H Total Protein (6.4 - 8.2 G/DL) 7.8 Albumin (3.4 - 5.0 G/DL) 3.6 Lipase (114 - 286 Unit/L) 103 L Specimen Appearance (1 NORMAL Index/DL) 3 SMALL 5-10 MG Specimen Hemolysis (1 NORMAL Index/DL) 2 TRACE 10-25 MG Coagulation PT (9.4 - 12.5 SECONDS) 10.5 INR (0.88 - 1.13 INR Unit) 0.91 PTT ([place]) (24 - 37.7 SECONDS) 39.5 H Hematology WBC (4.1 - 12.1 K/mm3) 9.1 RBC (3.8 - 5.5 M/mm3) 4.43 Hgb (10.6 - 15.8 G/DL) 13.8 Hct (31.8 - 47.4 %) 38.9 MCV (80.1 - 101.1 fL) 87.8 MCH (25.3 - 35.3 pg) 31.2 MCHC (32.7 - 35.1 G/DL) 35.5 H RDW (12.2 - 16.4 %) 15.1 Plt Count (155 - 337 K/mm3) 301 MPV (6.8 - 11.2 fL) 9.8 Recent Impressions:ULTRASOUND - US ABDOMEN LTD 07/31 1557 Report Impression - Status: SIGNED Entered: 07/31/2022 1627IMPRESSION:Contracted gallbladder. Potential gallbladder polyp towards the fundusversus sludge ball. This measures up to 5 mm. Follow-up in 6 monthsmay be beneficial.Impression By: [email or web address] - Titus Bajwa MD CAT SCAN - CT ABD PELVIS W/CONT 07/31 1635 Report Impression - Status: SIGNED Entered: 07/31/2022 1706IMPRESSION:1. Normal appendix. No evidence of acute abdominal abnormality.2. Mild sigmoid colon diverticulosis, without diverticulitis.Impression By: [email or web address] - Rosalino Castelan M.D. Diagnosis, Assessment PlanFree Text A P: ABDOMINAL PAINABNORMAL LFTS (elev TBIl, ELev AST/ALT and ALk Phos)/Obst JaundicePossible PUD/GastritisPossible Choledocholithiasis (CBD Upper limits of Normal (7-8 mm))No Fever, no WBC- doubt with CHolangitis- GI consulted- PPI- MRCP- Surgical consult pending GI recommendation- IVF Potential gallbladder polyp towards the fundus versus sludge ball. This measures up to 5 mm.- GI consulted ELEVATED BP with no H/O HTN- PRN IV BP Meds- Pain control Hypokalemia- replace QUALITY:DVT PROPHYLAXIS ordered: SCD. Defer Pharmacological prophylaxis to Attending, pending GI evalHOME MEDS RECONCILED and ordered.GENERAL ADMIT MEDS Orders entered Advance Care Planning and Code Status Discussed: Full codeALL test results available at this time have been reviewed and addressed upon. I have discussed the findings, working diagnosis/ses and plan of treatment withpatient and all concerns and questions addressed at this time to the best of my judgement based on initial and limited data at this time. As I am a Pet Walker and Admitting MD only, I am SIGNING OFF and one of the Hospital Doc's Attending - MERRILL HERRON - will continue patient's care and management effective 0600 am of 08/01/2022. I have initiated patient's plan of care based on preliminary diagnosis/ses and initial available test results and I am deferring further evaluation, treatment, and consultations to the new Attending. Rishabhocturnist/Admitting MD at 1343 RPT #:[id number] OF REPORTHPHistory and physical pfiosojqtrh4800-98-35R25:17:00B.[id number] AVAvailable for patient iwfcIWGDBXQDCTEZBD3206-69-20A81:44:23 [facility] 2022-07-31 20:32:00 [id number] 2IdOlL2wMXY+qcX1JCqhxY5CdV81705-48-93K97:32:[address] [facility] ([facility])EMERGENCY PROVIDER REPORTREPORT#:[id number] REPORT STATUS: SignedDATE:07/31/22 TIME: 2031 PATIENT: EMMIE TIMMONS UNIT #: [id number]#: [id number] ROOM/BED: [facility]-WAGE: 51 SEX: F PCP PHYS: No Primary or Family PhysicianSERVICE AUTHOR: Jacob Tristan MD * ALL edits or amendments must be made on the electronic/computer document * HPI-General Illness GeneralInitial Greet Date/Time 07/31/22 1524 Provider in TriagePE General/Const No acute distress Respiratory/Chest No respiratory distress PresentationChief Complaint Abdominal painHx Obtained From PatientSudden in Onset? NoOnset Occurred Days ago (3)Symptom Duration Since onsetProgression since Onset Gradually worseningCaused by No trauma by historyLocation AbdomenQuality PainfulRadiationDoes not radiate. Severity: Current SevereAssociated withReports: Nausea, Vomiting. Denies: Cough, Fever. Associated Other Pt denies other symptomsExacerbated by NothingRelieved by Nothing Free Text HPI NotesFree Text HPI NotesThe patient is a 51-year-old female who presents complaints of right upper quadrant pain. Pain began 3 days ago and has been getting worse. No radiation. She does report some nausea and vomiting. She denies fever or chills. Review of Systems ROS StatementsAll systems rev neg except as marked. Past Medical History - AdultStated Complaint ABD PAIN; ORANGE URINE; WHITE STOOL; HEART BURNAllergiesCoded Allergies:Penicillins (Severe, ANAPHYLAXIS 07/31/22)morphine (Intermediate, RASH; HEADACHE 07/31/22)clindamycin (ANAPHYLAXIS 07/31/22) Calculated Suicide Risk (nurs) No riskSmoking status for patients 13 years old or older: Unknown,if ever smoked Physical Exam Vital SignsVital SignsFirst Documented: Result Date Time Pulse Ox 95 07/31 1527 B/P 205/106 07/31 152 B/P Mean 139 07/31 1527 O2 Delivery Room air 07/31 1527 Temp 98.3 07/31 1527 Pulse 105 07/31 152 Resp 22 07/31 152 Last Documented: Result Date Time Pulse Ox 97 07/31 1957 B/P 201/100 07/31 1957 B/P Mean 133 07/31 1957 O2 Delivery Room air 07/31 1957 Pulse 91 07/31 1957 Resp 17 07/31 1957 Temp 98.3 07/31 152 Review of Vital Signs Reviewed, Vital signs abnormal Basic Physical ExamBasic PE HEAD: Atraumatic/NC, EYES: PERRL, conj clear, ENT: Membranes moist, NECK: Supple, RESP: No resp distress, CV: Reg rate rhythm, EXT: No gross abnormality, SKIN: No rashes, warm/dry, NEURO: alert oriented, NEURO: gross movement NL, PSYCH: NL thought content Physical ExamGeneral/Const General/Const Awake, Alert, in painAbdomen/GI Abdomen/GI Atraumatic, Soft, No rebound, RUQ ttp with guarding Interpretation Diagnostics Lab Results InterpretationResultsLaboratory Tests 07/31/22 1553:[Embedded Image Not Available]Laboratory Tests: 07/31 180 Urines Urine Color (YELLOW DESCRIPT) DARK-YELLOW Urine Appearance (CLEAR DESCRIPT) CLEAR Urine pH (4.6 - 8.0 pH UNITS) 6.0 Ur Specific [place] (1.001 - 1.035 SG) 1.013 Urine Protein (<30 (1+) mg/dL) NEGATIVE (0) Urine Glucose (UA) (0 (NORMAL) mg/dL) NORMAL (0) Urine Ketones ((NEG) 0 mg/dL) NEGATIVE (0) Urine Blood (0 (NEG) mg/dL) 0.10 (1+) H Urine Nitrite (NEG SCREEN) NEGATIVE (0) Urine Bilirubin ((NEG) 0 mg/dL) 3.0 (2+) H Urine Urobilinogen (<2.0 (1+) mg/Dl) NORMAL (0) Ur Leukocyte Esterase ((NEG) 0 Leuk/mcL) NEGATIVE (0) Urine RBC (0 - 3 #RBC/HPF) 3-5 Urine WBC (0 - 3 #WBC/HPF) 0-3 Ur Squamous Epith Cells (NONE - SQepi /UL) RARE >0 Urine Mucus (NONE /LPF) RARE Urine Culture Screen (Cult byBC Criteria) Crit NOTmet CULT-N/A Urine HCG, Qual (NEG) NEGATIVE Urine Comment (SpecComment NoteSPEC) CLEAN CATCH SPEC 07/31 155 Chemistry Sodium (133 - 144 mmol/L) 136.0 Potassium (3.5 - 5.1 mmol/L) 3.4 L Chloride (95 - 105 mmol/L) 103 Carbon Dioxide (21 - 32 mmol/L) 25 Anion Gap (4.0 - 15.0 GAP calc) 8.0 BUN (7 - 18 MG/DL) 14 Creatinine (0.55 - 1.30 MG/DL) 0.84 Glucose (70 - 110 MG/DL) 107 Calcium (8.5 - 10.1 MG/DL) 9.7 Total Bilirubin (0.00 - 1.00 MG/DL) 6.17 H Direct Bilirubin (0.00 - 0.30 MG/DL) 5.40 H Indirect Bilirubin (0.2 - 1.3 MG/DL) 0.77 AST (15 - 37 Unit/L) 337 H ALT (12 - 78 Unit/L) 615 H Total Alk Phosphatase (45 - 117 Unit/L) 555 H Total Protein (6.4 - 8.2 G/DL) 7.8 Albumin (3.4 - 5.0 G/DL) 3.6 Lipase (114 - 286 Unit/L) 103 L Specimen Appearance (1 NORMAL Index/DL) 3 SMALL 5-10 MG Specimen Hemolysis (1 NORMAL Index/DL) 2 TRACE 10-25 MG Coagulation PT (9.4 - 12.5 SECONDS) 10.5 INR (0.88 - 1.13 INR Unit) 0.91 PTT ([place]) (24 - 37.7 SECONDS) 39.5 H Hematology WBC (4.1 - 12.1 K/mm3) 9.1 RBC (3.8 - 5.5 M/mm3) 4.43 Hgb (10.6 - 15.8 G/DL) 13.8 Hct (31.8 - 47.4 %) 38.9 MCV (80.1 - 101.1 fL) 87.8 MCH (25.3 - 35.3 pg) 31.2 MCHC (32.7 - 35.1 G/DL) 35.5 H RDW (12.2 - 16.4 %) 15.1 Plt Count (155 - 337 K/mm3) 301 MPV (6.8 - 11.2 fL) 9.8 Recent Impressions:ULTRASOUND - US ABDOMEN LTD 07/31 1557 Report Impression - Status: SIGNED Entered: 07/31/2022 1627 IMPRESSION: Contracted gallbladder. Potential gallbladder polyp towards the fundusversus sludge ball. This measures up to 5 mm. Follow-up in 6 monthsmay be beneficial. Impression By: [email or web address] - Titus Bajwa [facility] - CT ABD PELVIS W/CONT 07/31 1635 Report Impression - Status: SIGNED Entered: 07/31/2022 1706 IMPRESSION:1. Normal appendix. No evidence of acute abdominal abnormality.2. Mild sigmoid colon diverticulosis, without diverticulitis. One or more of the following dose reduction techniques were used:Automated exposure control, adjustment of the mA and/or kV accordingto patient size, and/or utilization of iterative reconstructiontechnique.DLP: 625 mGy-cm CTDI: 12 mGy Impression By: Kieran Castelan M.D. Re-Evaluation MDM Free Text MDM NotesFree Text MDM NotesAdmission accepted by Dr. Ponce. Consult excepted by Dr. Steinberg. No evidence ofascending cholangitis, sepsis, infection. ED CourseMedication(s) OrderedMedication(s) Ordered:Central Nervous System Agents Sig/Johan Start time Last Medication Dose Route Stop Time Status Admin Fentanyl Citrate 50 MCG X1ED STA 07/31 2028 DC IV 07/31 2029 Diagnostic Agents Sig/Johan Start time Last Medication Dose Route Stop Time Status Admin Iopamidol 75 ML .STK-MED ONE 07/31 1644 DC 07/31 IV 07/31 1645 1644 Electrolytic, Caloric, And Jorje Sig/Johan Start time Last Medication Dose Route Stop Time Status Admin Sodium Chloride 1,000 ML X1ED STA 07/31 2028 AC IV 08/01 0627 Gastrointestinal Drugs Sig/Johan Start time Last Medication Dose Route Stop Time Status Admin Ondansetron HCl 4 MG X1ED STA 07/31 2028 DC IV 07/31 2029 Patient Discharge Departure Vital Signs/ConditionVital SignsFirst Documented: Result Date Time Pulse Ox 95 07/31 1527 B/P 205/106 07/31 152 B/P Mean 139 07/31 1527 O2 Delivery Room air 07/31 1527 Temp 98.3 07/31 1527 Pulse 105 07/31 1527 Resp 22 07/31 1527 Last Documented: Result Date Time Pulse Ox 97 07/31 1957 B/P 201/100 07/31 1957 B/P Mean 133 07/31 1957 O2 Delivery Room air 07/31 1957 Pulse 91 07/31 1957 Resp 17 07/31 1957 Temp 98.3 07/31 1527 All vital signs available at the time of this entry have been reviewed. Clinical ImpressionClinical ImpressionPrimary Impression: Choledocholithiasis Disposition DecisionAdmit Admit Physician Name Natalee Ponce MD )( Admission Accepts Yes )( Accepted Time 1935 )( Accepted Date 07/31/22 Discharge/Care Plan(Auto) PrescriptionsCurrent Visit ScriptsCIPROFLOXACIN (CIPRO) 500 MG PO BID CIPROFLOXACIN (CIPRO) 500 MG PO BID #6 TABS metroNIDAZOLE (FLAGYL) 500 MG PO TID metroNIDAZOLE (FLAGYL) 500 MG PO TID #9 TABS at 2004RPT #:[id number] OF REPORTEDEmergency department [id number]:32:[id number] ilable for patient [id number]:04:43 [facility] 2022-07-31 15:34:00 [id number]:34:00 [facility] Center[facility] PROVIDER REPORTREPORT#:[id number] REPORT STATUS: SignedDATE:07/31/22 TIME: 153 PATIENT: EMMIE TIMMONS UNIT #: [id number]#: [id number] ROOM/BED: [facility]-WAGE: 51 SEX: F PCP PHYS: No Primary or Family PhysicianSERVICE AUTHOR: Allen Daniels APRNNP * ALL edits or amendments must be made on the electronic/computer document * Allen Daniels 07/31/22 1534:Provider in Triage - Adult Provider in TriageInitial Greet Date/Time 07/31/22 1524 Greet NoteI have greeted and performed a focused rapid initial assessment of this patient.A comprehensive ED assessment and evaluation of the patient, analysis of all test results, and completion of the medical decision-making process will be conducted by additional ED providers. PE General/Const No acute distress Respiratory/Chest No respiratory distressProgressPatient is a 51-year-old female presents with upper abdominal pain for the last 3 to 4 days. Reports has had nausea and vomiting. Denies fever. MSE Not CompleteThe medical screening exam is not complete. Further evaluation and/or treatment is required. The patient will be re-directed to the emergency department. Clinical ImpressionText/Dict Impressioneloped Elopement Note Elopement NoteThis patient has left the emergency department or waiting room with no communication to myself, nursing or administrative staff. There was no opportunity to discuss the patient's decision to leave, provide medical advice or discuss alternatives to leaving. The staff has made efforts to locate the patient without success. PMH-Provider in TriageStated Complaint ABD PAIN; ORANGE URINE; WHITE STOOL; HEART BURNAllergiesCoded Allergies:Penicillins (Severe, ANAPHYLAXIS 07/31/22)morphine (Intermediate, RASH; HEADACHE 07/31/22)clindamycin (ANAPHYLAXIS 07/31/22) Tiffanie Penny 08/01/22 1420:PMH-Provider in TriageHome MedicationsReported MedicationsNo Known Home Medications at 1759 at 1420RPT #:[id number] OF REPORTEDEmergency department [id number]:34:00B.[id number] ilable for patient [id number]:00:11 [facility]
[2024-03-09 07:10] LABS: Arterial Blood Carboxyhemoglob 1.2 % (0-1.5); Blood Gas Oxyhemoglobin 86.8 % (94-97); Blood Gas THB 12.6 g/dl (12-18); Blood O2 Saturation 89.4 % (92-98.5)
[2024-03-09 07:11] LABS: PT Prothrombin Time 10.6 SECONDS (9.5-12.5); PTT, Activated Partial Thromb 28.7 SECONDS (24.3-36.9); Protime INR 0.96
[2024-03-09 07:20] LABS: Absolute Basophils 0.1 K/uL (0-0.5); Absolute Eosinophils 0.1 K/uL (0-0.5); Absolute Monocytes 0.4 K/uL (0.1-1.3); Absolute Neutrophil 7.5 K/uL (1.8-8.0); Basophils % 0.6 % (0-1.3); Eosinophils % 1.2 % (0-4.4); Hematocrit 38.3 % (36.0-45.0); Hemoglobin 12.5 g/dL (12.0-15.0); Lymphocytes % 10.6 % (15.3-44.8); MCH 30.3 pg (27.0-35.0); MCHC 32.7 g/dL (32.0-36.0); MCV 92.7 fL (80-100); MPV 7.9 fL (7.6-11.3); Monocytes % 4.4 % (3.3-12.3); Neutrophils % 83.2 % (41.7-73.7); Platelets 255 thou/uL (152-406); RBC Red Blood Cell Count 4.13 M/uL (3.86-4.86)
[2024-03-09] MEDS ORDERED: ALBUTEROL 2.5 MG/3 ML NEB SOL ONE (07:24)
[2024-03-09] MEDS ORDERED: CEFTRIAXONE 1000 MG/VIAL ONE (07:24)
[2024-03-09] MEDS ORDERED: IPRATROPIUM BROM 0.5MG/2.5ML ONE (07:24)
[2024-03-09] MEDS ORDERED: METHYLPREDNISOLONE 125 MG INJ ONE (07:25)
[2024-03-09] MEDS ORDERED: ONDANSETRON 4 MG/2 ML VIAL ONE (07:25)
[2024-03-09] MEDS ORDERED: FENTANYL CITR 100 MCG/2 ML ONE (07:25)
[2024-03-09 07:41] LABS: Albumin 3.5 g/dL (3.4-5.0); Albumin/Globulin Ratio 0.9 (1.1-1.8); Anion Gap 7.6 mEq/L (5.0-15.0); Bilirubin Direct 0.2 mg/dL (0-0.2); Bilirubin Indirect, Calculated 0.2 mg/dL (0.2-0.8); Bilirubin Total 0.4 mg/dL (0.2-1.0); Globulin 3.7 g/dL (2.3-3.5); Potassium 3.6 mEq/L (3.5-5.1); Protein, Total 7.2 g/dL (6.4-8.2); Troponin High Sensitivity 28.1 pg/mL (<58.9)
--- NOTE | 2024-03-09 08:08 | RAD REPORT ---
EXAM DESCRIPTION: Leyla Single View03/09/2024 7:41 am CLINICAL HISTORY: CONGESTION COMPARISON: Chest Single View dated 12/14/2018; CHEST SINGLE VIEW dated 02/17/2013 TECHNIQUE: Portable AP view of the chest. FINDINGS: Patchy bibasilar airspace opacities with background interstitial thickening. No pneumotho rax or effusion. Mild cardiomegaly. Mediastinal contours are unremarkable. IMPRESSION: Patchy bibasilar opacities which may relate to pulmonary edema, possibly of cardiogenic nature, or less likely multifocal pneumonia.
--- NOTE | 2024-03-09 08:40 | RAD REPORT ---
EXAM DESCRIPTION: CT - Chest For Pe Angio - 03/09/2024 8:21 am CLINICAL HISTORY: CHEST PAIN COMPARISON: THORAX WO CONTRAST dated 04/23/2015; Abdomen Pelvis W Contrast dated 03/09/2024; Chest Si ngle View dated 03/09/2024 TECHNIQUE: Thin axial CT images of the chest were obtained following administration of 100 mL Isovue 370 IV contrast. Multiplanar reconstructions, and maximum intensity projection reconstructions were generated and reviewed. Exam utilizes a protocol for optimal evaluation of pulmonary arterial tree. All CT scans are performed using dose optimization technique as appropriate and may include automated exposure control or mA/KV adjustment according to patient size. FINDINGS: Motion artifact at the mid to lower lungs limits evaluation. Pulmonary arteries are normal. No emboli or other suspicious finding. No acute or significant aorta f indings. Bibasilar interlobular septal thickening and early central alveolar ground-glass opacities. Subsegmen farooq and linear bibasilar atelectatic changes. No focal consolidation or suspicious mass. No pleural t hickening or pleural effusion. No pneumothorax. No abnormal mediastinal or hilar masses or lymphadenopathy seen. No chest wall mass or abnormal axill iary lymphadenopathy. IMPRESSION: No evidence of acute central pulmonary emboli within limits of motion artifact. Bibasilar interstitial and early alveolar changes suggestive of pulmonary edema.
--- NOTE | 2024-03-09 09:23 | RAD REPORT ---
EXAM DESCRIPTION: CT - Abdomen Pelvis W Contrast - 03/09/2024 8:21 am CLINICAL HISTORY: chest/abd pain, elevated lfts COMPARISON: Chest For Pe Angio dated 03/09/2024; Chest Single View dated 03/09/2024 TECHNIQUE: Thin cut axial CT imaging of the abdomen and pelvis was performed following intravenous a dministration of 100 mL Isovue 300. Multiplanar reformats were generated and reviewed. All CT scans are performed using dose optimization technique as appropriate and may include automated exposure control or mA/KV adjustment according to patient size. FINDINGS: Interlobular septal thickening and ground-glass opacities more so on the right, better jennifer luated on dedicated CT chest of the same day. The liver, spleen, adrenal glands, and pancreas show no suspicious findings. Gallbladder was surgical ly removed. Symmetric renal function is seen with no hydronephrosis or suspicious renal mass. No dilated bowel loops or bowel wall thickening. No free air, free fluid or inflammatory stranding. N o hernia, mass or bulky lymphadenopathy. The urinary bladder is without significant finding. No suspicious bony findings. IMPRESSION: No acute intra-abdominal process. Bibasilar lung abnormalities, better evaluated on dedicated CT chest of the same day.
[2024-03-09] MEDS ORDERED: LORazepam 2 MG/ML VIAL ONE (12:08)
[2024-03-09] MEDS ORDERED: DIPHENHYDRAMINE 50 MG/ML VIAL ONE (12:09)
--- NOTE | 2024-03-09 13:01 | RAD REPORT ---
EXAM DESCRIPTION: MRI - Cholangiogram - 03/09/2024 12:52 pm CLINICAL HISTORY: lft abnl Abdominal pain COMPARISON: Chest For Pe Angio dated 03/09/2024; Abdomen Pelvis W Contrast dated 03/09/2024 FINDINGS: Three-dimensional MRCP was performed using maximum intensity projection reconstruction on the same work station. No intrahepatic biliary tree dilatation is seen. The common bile duct is normal caliber without evide nce of retained stone, stricture or mass. The pancreatic duct is not pathologically dilated. Cholecystectomy. Limited T2 sequences through the abdomen demonstrates no bulky adenopathy, significant free fluid or abscess. IMPRESSION: Negative MR cholangiogram, status post cholecystectomy.
--- NOTE | 2024-03-09 13:05 | EDPHYS ---
Physician Documentation [facility] Name: Esthela Ramirez Age: 53 yrs Sex: Female : 1970 Arrival Date: 03/09/2024 Time: 06:33 Bed 3 Private MD: ED Physician Jared Dao HPI: 03/09 06:40 This 53 yrs old Female presents to ER via Unassigned with complaints of sp4 Breathing Difficulty. 06:40 53-year-old female presents with acute onset of chest pain and shortness of sp4 breath starting this morning.. Patient presents with EMS for have administered a breathing treatment aspirin and nitroglycerin while in the route. EMS reported patient was initially hypoxemic with oxygen saturation 88%. . Historical: - Allergies: 07:07 amoxicillin trihydrate; jj7 07:07 Clindamycin; jj7 07:07 Morphine; jj7 07:07 PENICILLINS; jj7 07:07 potassium clavulanate; jj7 - PMHx: 07:07 Hypertension; Hypothyroidism; Chronic obstructive lung disease; jj7 - PSHx: 07:07 Cholecystectomy; jj7 - Immunization history:: Client reports having NOT received the Covid vaccine. Flu vaccine status is unknown. - Infectious Disease History:: Denies. - Family history:: not pertinent. - Social history:: Smoking status: Patient reports the use of cigarette tobacco products, smokes one pack cigarettes per day. Patient/guardian denies using tobacco. ROS: 06:40 Constitutional: Negative for fever, chills, and weight loss, sp4 06:40 Constitutional: Negative for fever, chills, and weight loss, positive chest pain and shortness of breath positive cough 06:40 All other systems are negative, Exam: 06:40 Constitutional: This is a well developed, well nourished patient who is awake, alert, sp4 and in moderate respiratory distress. Head/Face: Normocephalic, atraumatic. Eyes: Pupils equal round and reactive to light, extra-ocular motions intact. Lids and lashes normal. Conjunctiva and sclera are not injected. Cornea within normal limits. Periorbital areas with no swelling, redness, or edema. ENT: Nares patent. No nasal discharge, no septal abnormalities noted. Tympanic membranes are normal and external auditory canals are clear. Oropharynx with no redness, swelling, or masses, exudates, or evidence of obstruction, uvula midline. Mucous membranes moist. Neck: Trachea midline, no thyromegaly or masses palpated, and no cervical lymphadenopathy. Supple, full range of motion without nuchal rigidity, or vertebral point tenderness. Chest/axilla: Normal chest wall appearance and motion. Nontender with no deformity. No lesions are appreciated. Cardiovascular: Regular rate and rhythm with a normal S1 and S2. No gallops, murmurs, or rubs. Normal PMI, no JVD. No pulse deficits. Respiratory: Lungs have equal breath sounds bilaterally, positive diffuse expiratory wheezes in all lung mendoza Abdomen/GI: Soft, with normal bowel sounds. No distension or tympany. No guarding or rebound. No evidence of tenderness throughout. Back: No spinal tenderness. No costovertebral tenderness. Skin: Warm, dry with normal turgor. Normal color with no rashes, no lesions, and no evidence of cellulitis. MS/ Extremity: Pulses equal, no cyanosis. Neurovascular intact. Full, normal range of motion. Neuro: Awake and alert, GCS 15, oriented to person, place, time, and situation. Cranial nerves II-XII grossly intact. Motor strength 5/5 in all extremities. Sensory grossly intact. Psych: Awake, alert, with orientation to person, place and time. Behavior, mood, and affect are within normal limits Vital Signs: 06:35 BP 162 / 105; Pulse 90; Resp 18; Temp 98.9; Pulse Ox 99% on Non-rebreather mask; Weight jj7 79.38 kg; Height 5 ft. 6 in. ; Pain 2/10; 07:30 BP 153 / 92; Pulse 86; Resp 18; Pulse Ox 96% on R/A; ko1 08:36 BP 160 / 93; Pulse 88; Resp 16; Pulse Ox 100% on Nebulizer Mask; ko1 09:11 BP 153 / 90; Pulse 81; Resp 14; Pulse Ox 95% on R/A; ko1 10:00 BP 150 / 94; Pulse 83; Resp 18; Pulse Ox 95% ; cp4 11:00 BP 136 / 71; Pulse 77; Resp 18; Pulse Ox 94% ; cp4 12:00 BP 147 / 87; Pulse 88; Resp 18; Pulse Ox 98% ; cp4 13:00 BP 177 / 98; Pulse 93; Resp 18; Pulse Ox 98% ; cp4 14:00 BP 172 / 83; Pulse 93; Resp 18; Pulse Ox 98% ; cp4 15:00 BP 142 / 58; Pulse 89; Resp 18; Pulse Ox 94% ; cp4 16:00 BP 146 / 79; Pulse 85; Resp 18; Pulse Ox 94% ; cp4 17:00 BP 162 / 83; Pulse 94; Resp 18; Pulse Ox 95% ; cp4 06:35 Body Mass Index 28.25 (79.38 kg, 167.64 cm) [facility] 06:35 Pain Scale: Adult j [place] Coma Score: 06:40 Eye Response: spontaneous(4). Motor Response: obeys commands(6). Verbal Response: sp4 oriented(5). Total: 15. MDM: 06:39 Patient medically screened. sp4 06:42 Data reviewed: vital signs, nurses notes, EMS record, old medical records, lab test sp4 result(s), EKG, radiologic studies, CT scan, plain films. Transition of care: After a detail discussion of the patient's case, care is transferred to Jared Feliberto HERRON. ED course: Patient should be admitted for COPD exacerbation. 07:17 Transition of care: Care assumed from Maciel Bernal MD. ED course: Patient signed ec2 out to primary physician, in brief patient arrives today for chest pain shortness of breath, borderline saturations at 80%, history of COPD, no baseline oxygen requirement. Plan is to follow-up lab work, reassess, admit patient. Patient received antibiotic coverage along with steroids, breathing treatment.. 08:04 ED course: Metabolic profile is reassuring. CBC reassuring, LFTs are elevated with a ec2 AST and ALT. BNP elevated at 1700. Troponin within normal ranges . 09:30 ED course: I discussed the case with Dr. Prater, GI recommended MRCP given the ec2 abnormal LFTs. Plan to keep in this hospital no actionable process identified.. 13:03 ED course: Will admit the patient for COPD exacerbation, possible pneumonia. Discussed ec2 case with hospitalist, pending admission.. 03/09 06:37 Order name: BMP; Complete Time: 08:03 sp4 03/09 06:37 Order name: Blood Culture Adult (2) sp4 03/09 06:37 Order name: CBC with Diff; Complete Time: 08:03 sp4 03/09 06:37 Order name: CPK; Complete Time: 08:03 sp4 03/09 06:37 Order name: Hepatic Function; Complete Time: 08:03 sp4 03/09 06:37 Order name: Lipase; Complete Time: 08:03 sp4 03/09 06:37 Order name: Magnesium; Complete Time: 08:03 sp4 03/09 06:37 Order name: NT PRO-BNP; Complete Time: 08:03 sp4 03/09 06:37 Order name: PT-INR; Complete Time: 07:21 sp4 03/09 06:37 Order name: Ptt, Activated; Complete Time: 07:21 4 03/09 06:37 Order name: Troponin HS; Complete Time: 08:03 4 03/09 06:38 Order name: ABG; Complete Time: 07:21 4 03/09 14:00 Order name: Acute Hepatitis Panel EDNH 03/09 14:00 Order name: Acute Hepatitis Panel EDNH 03/09 14:00 Order name: CBC with Automated Diff EDMS 03/09 14:00 Order name: CBC with Automated Diff EDMS 03/09 14:00 Order name: Comprehensive Metabolic Panel EDMS 03/09 14:00 Order name: Comprehensive Metabolic Panel EDMS 03/09 14:00 Order name: Lipid Profile EDMS 03/09 14:00 Order name: Lipid Profile EDMS 03/09 14:00 Order name: Protime (+INR) EDMS 03/09 14:00 Order name: Protime (+INR) EDMS 03/09 14:00 Order name: PTT, Activated Partial Thromb EDMS 03/09 14:00 Order name: PTT, Activated Partial Thromb EDMS 03/09 06:37 Order name: CT Chest For PE Angio; Complete Time: 09:39 sp4 03/09 06:37 Order name: XRAY CXR (1 view); Complete Time: 09:39 sp4 03/09 08:20 Order name: Abdomen ; Complete Time: 09:39 EDMS 03/09 09:53 Order name: Cholangiogram; Complete Time: 13:03 EDNH 03/09 06:37 Order name: Cardiac monitoring; Complete Time: 07:03 sp4 03/09 06:37 Order name: EKG - Nurse/Tech; Complete Time: 07:03 sp4 03/09 06:37 Order name: IV Saline Lock; Complete Time: 07:05 sp4 03/09 06:37 Order name: Labs collected and sent; Complete Time: 07:05 sp4 03/09 06:37 Order name: O2 Per Protocol; Complete Time: 07:20 sp4 03/09 06:37 Order name: O2 Sat Monitoring; Complete Time: 07:03 sp4 Administered Medications: 07:32 Drug: Ondansetron IVP 4 mg IVP once; over 2 minutes Route: IVP; Site: right antecubital;ko1 07:47 Follow up: Response: No adverse reaction ko1 07:40 Drug: fentaNYL (PF) IVP 50 mcg IVP once Route: IVP; Site: right antecubital; ko1 07:55 Follow up: Response: No adverse reaction; Pain is decreased ko1 07:45 Drug: Albuterol Inhalation 2.5 mg Inhalation every 20 minutes x3 Route: Inhalation; ko1 07:45 Drug: MethylPrednisoLONE IVP 125 mg IVP once Route: IVP; Site: right antecubital; ko1 08:00 Follow up: Response: No adverse reaction ko1 07:45 Drug: Ipratropium Inhalation Aerosol 0.5 mg Inhalation once; Every 20 min for a total ko1 of 3 treatments x3 Route: Inhalation; 07:54 Drug: Rocephin - Rocephin (cefTRIAXone) IVPB 1 grams IVPB once over 30 mins; (mix in 50 ko1 mL NS) Route: IVPB; Infused Over: 30 mins; Site: right antecubital; 08:10 Follow up: Response: No adverse reaction; IV Status: Completed infusion; IV Intake: [id number] 08:03 Drug: Albuterol Inhalation 2.5 mg Inhalation every 20 minutes x3 Route: Inhalation; ko1 08:03 Drug: Ipratropium Inhalation Aerosol 0.5 mg Inhalation once; Every 20 min for a total ko1 of 3 treatments x3 Route: Inhalation; 08:26 Drug: Albuterol Inhalation 2.5 mg Inhalation every 20 minutes x3 Route: Inhalation; ko1 08:29 Follow up: Response: No adverse reaction; Wheezing diminished ko1 08:26 Drug: Ipratropium Inhalation Aerosol 0.5 mg Inhalation once; Every 20 min for a total ko1 of 3 treatments x3 Route: Inhalation; 08:28 Follow up: Response: No adverse reaction; Wheezing diminished ko1 12:15 Drug: Ativan IVP 1 mg IVP once Route: IVP; Site: right antecubital; ph 12:16 Follow up: Response: No adverse reaction ph 12:15 Drug: diphenhydrAMINE IVP 25 mg IVP once Route: IVP; Site: right antecubital; ph 12:16 Follow up: Response: No adverse reaction ph Disposition Summary: 03/09/24 13:04 Hospitalization Ordered Notes: Hospitalization Status: Inpatient Admission ec2 Provider: Suresh Martinez ec2 Location: Telemetry/MedSurg (Inpatient) ec2 Condition: Stable ec2 Problem: an acute exacerbation ec2 Symptoms: have improved ec2 Bed/Room Type: Standard ec2 Room Assignment: 405(03/09/24 14:15) bd Diagnosis - COPD/ Chronic obstructive pulmonary disease with (acute) exacerbation ec2 Forms: - Medication Reconciliation Form ec2 - SBAR form ec2 - Leadership Thank You Letter ec2 Signatures: Dispatcher [employer] EDMS Keyanna Kim Patricia, RN RN ph Daniela Cameron RN RN ko1 Mona Farley RN RN jj7 Maciel Bernal MD MD sp4 Jared Dao MD MD ec2 Corrections: (The following items were deleted from the chart) 06:38 06:38 BASIC METABOLIC PANEL+C.LAB.BRZ ordered. EDMS EDMS 06:38 06:38 BLOOD CULTURE*+BA.LAB.BRZ ordered. EDMS EDMS 06:38 06:38 CBC+H.LAB.BRZ ordered. EDMS EDMS 06:38 06:38 CREATINE PHOSPHOKINASE+C.LAB.BRZ ordered. EDMS EDMS 06:38 06:38 HEPATIC FUNCTION+C.LAB.BRZ ordered. EDMS EDMS 06:38 06:38 LIPASE+C.LAB.BRZ ordered. EDMS EDMS 06:38 06:38 MAGNESIUM+C.LAB.BRZ ordered. EDMS EDMS 06:38 06:38 PROBNP+C.LAB.BRZ ordered. EDMS EDMS 06:38 06:38 PROTIME (+INR)+COAG.LAB.BRZ ordered. EDMS EDMS 06:38 06:38 PTT, ACTIVATED+COAG.LAB.BRZ ordered. EDMS EDMS 06:38 06:38 Troponin High Sensitivity+C.LAB.BRZ ordered. EDMS EDMS 06:38 06:38 Arterial Blood Gas+RC.LAB.BRZ ordered. EDMS EDMS 07:14 06:39 Arterial Blood Gas+RC.LAB.BRZ ordered. EDMS EDMS 08:20 08:05 Chest Abdomen W/ Con+CT.RAD.BRZ ordered. EDMS EDMS 10:10 09:47 Abdomen Limited+US.RAD.BRZ ordered. EDMS EDMS 14:15 13:04 ec2 bd
--- NOTE | 2024-03-09 13:05 | ER ---
Nurse's Notes [facility] Name: Esthela Ramirez Age: 53 yrs Sex: Female : 1970 Arrival Date: 03/09/2024 Time: 06:33 Bed 3 Private MD: Diagnosis: COPD/ Chronic obstructive pulmonary disease with (acute) exacerbation Presentation: 03/09 06:35 Chief complaint: Patient states: SOB X2 DAY AND CP STARTED THIS MORNING. CP HAS jj7 RESOLVED BUT EVERYTHING FEELS SORE. Coronavirus screen: difficulty breathing. Ebola Screen: No symptoms or risks identified at this time. Initial Sepsis Screen: Does the patient meet any 2 criteria? No. Patient's initial sepsis screen is negative. Does the patient have a suspected source of infection? No. Patient's initial sepsis screen is negative. Risk Assessment: Do you want to hurt yourself or someone else? Patient reports no desire to harm self or others. Care prior to arrival: Medication(s) given: Albuterol Neb x 1, ASA, 81 mg, x 4, Atrovent Neb x 1, Nitroglycerin, 0.4 mg SL x 1. 06:35 Method Of Arrival: EMS: [facility] jj7 06:35 Acuity: CALEB 3 jj7 Triage Assessment: 06:35 General: Appears in no apparent distress. uncomfortable, Behavior is calm, cooperative, jj7 appropriate for age. Pain: Denies pain. Respiratory: Reports shortness of breath at rest labored breathing since 2 DAYS AGO the patient has mild shortness of breath. Historical: - Allergies: 07:07 amoxicillin trihydrate; jj7 07:07 Clindamycin; jj7 07:07 Morphine; jj7 07:07 PENICILLINS; jj7 07:07 potassium clavulanate; jj7 - PMHx: 07:07 Hypertension; Hypothyroidism; Chronic obstructive lung disease; jj7 - PSHx: 07:07 Cholecystectomy; jj7 - Immunization history:: Client reports having NOT received the Covid vaccine. Flu vaccine status is unknown. - Infectious Disease History:: Denies. - Family history:: not pertinent. - Social history:: Smoking status: Patient reports the use of cigarette tobacco products, smokes one pack cigarettes per day. Patient/guardian denies using tobacco. Screenin:30 [facility] ED Fall Risk Assessment (Adult) History of falling in the last 3 months, ko1 including since admission No falls in past 3 months (0 pts) Confusion or Disorientation No (0 pts) Intoxicated or Sedated No (0 pts) Impaired Gait No (0 pts) Mobility Assist Device Used No (0 pt) Altered Elimination No (0 pt) Score/Fall Risk Level 0 - 2 = Low Risk Oriented to surroundings, Maintained a safe environment, Educated pt \T\ family on fall prevention, incl call for assistance when getting out of bed, Assessed \T\ reinforced patient's understanding of fall precautions, Provided non-skid footwear, Hourly rounding (assess needs \T\ fall precautionary measures) done, Used ambulatory aids as needed (educated on \T\ assisted with), Used gait belt as appropriate. Abuse screen: Denies threats or abuse. Denies injuries from another. Nutritional screening: No deficits noted. Tuberculosis screening: No symptoms or risk factors identified. Assessment: 07:30 General: Appears in no apparent distress. uncomfortable, Behavior is cooperative, ko1 appropriate for age, anxious. Pain: Complains of pain in chest. Neuro: No deficits noted. Cardiovascular: Rhythm is sinus rhythm. Respiratory: Reports pain with respiration Airway is patent Respiratory effort is even, unlabored, Breath sounds are diminished bilaterally. GI: No deficits noted. : No deficits noted. EENT: No deficits noted. Derm: No deficits noted. Musculoskeletal: No deficits noted. 15:57 Reassessment: Awaiting transport upstairs. ranch hand supervisor notified of need for 4 transport. Vital Signs: 06:35 BP 162 / 105; Pulse 90; Resp 18; Temp 98.9; Pulse Ox 99% on Non-rebreather mask; Weight jj7 79.38 kg; Height 5 ft. 6 in. ; Pain 2/10; 07:30 BP 153 / 92; Pulse 86; Resp 18; Pulse Ox 96% on R/A; ko1 08:36 BP 160 / 93; Pulse 88; Resp 16; Pulse Ox 100% on Nebulizer Mask; ko1 09:11 BP 153 / 90; Pulse 81; Resp 14; Pulse Ox 95% on R/A; ko1 10:00 BP 150 / 94; Pulse 83; Resp 18; Pulse Ox 95% ; cp4 11:00 BP 136 / 71; Pulse 77; Resp 18; Pulse Ox 94% ; cp4 12:00 BP 147 / 87; Pulse 88; Resp 18; Pulse Ox 98% ; cp4 13:00 BP 177 / 98; Pulse 93; Resp 18; Pulse Ox 98% ; cp4 14:00 BP 172 / 83; Pulse 93; Resp 18; Pulse Ox 98% ; cp4 15:00 BP 142 / 58; Pulse 89; Resp 18; Pulse Ox 94% ; cp4 16:00 BP 146 / 79; Pulse 85; Resp 18; Pulse Ox 94% ; cp4 17:00 BP 162 / 83; Pulse 94; Resp 18; Pulse Ox 95% ; cp4 06:35 Body Mass Index 28.25 (79.38 kg, 167.64 cm) jj7 06:35 Pain Scale: Adult jj7 Víctor Coma Score: 06:40 Eye Response: spontaneous(4). Motor Response: obeys commands(6). Verbal Response: sp4 oriented(5). Total: 15. ED Course: 06:35 Patient arrived in ED. rv 06:35 Arm band placed on right wrist. Patient placed in an exam room, on a stretcher, on jj7 oxygen, on golf stud riveter, on pulse oximetry. 06:36 Maciel Bernal MD is Attending Physician. sp4 06:44 Triage completed. jj7 07:02 Lipase Sent. jj7 07:02 Magnesium Sent. jj7 07:02 NT PRO-BNP Sent. jj7 07:02 PT-INR Sent. jj7 07:02 Ptt, Activated Sent. jj7 07:02 Troponin HS Sent. jj7 07:02 Hepatic Function Sent. jj7 07:02 CPK Sent. jj7 07:02 CBC with Diff Sent. jj7 07:02 Blood Culture Adult (2) Sent. jj7 07:02 BMP Sent. jj7 07:10 Report given to DANIELA MATTSON. jj7 07:15 Attending Physician role handed off by Maciel Bernal MD ec2 07:15 Jared Dao MD is Attending Physician. ec2 07:30 Patient has correct armband on for positive identification. Allergy band placed. Placed ko1 in gown. Bed in low position. Call light in reach. Side rails up X2. Client placed on continuous cardiac and pulse oximetry monitoring. NIBP monitoring applied. museum security chief on. Door closed. Noise minimized. Lights dimmed. Warm blanket given. Head of bed elevated. 07:31 Daniela Cameron, RN is Primary Nurse. ko1 07:43 XRAY CXR (1 view) In Process Unspecified. EDMS 07:50 Initial lab(s) drawn, by ED staff, sent to lab. Second set of blood cultures drawn by ko1 co. Inserted saline lock: 22 gauge in left antecubital area, using aseptic technique. Blood collected. Maintain EMS IV. Dressing intact. Good blood return noted. Site clean \T\ dry. Gauge \T\ site: 20g right AC. 07:55 Blood Culture Adult (2) Sent. ko1 08:20 Abdomen In Process Unspecified. EDMS 08:22 CT Chest For PE Angio In Process Unspecified. EDMS 08:36 Provided Education on: labs/meds. ko1 08:36 No provider procedures requiring assistance completed. ko1 09:11 Warm blanket given. PO fluids given. Assisted to bathroom. ko1 12:41 Cholangiogram In Process Unspecified. EDMS 13:04 Suresh Martinez MD is Hospitalizing Provider. ec2 17:16 Patient admitted, IV remains in place. cp4 Administered Medications: 07:32 Drug: Ondansetron IVP 4 mg IVP once; over 2 minutes Route: IVP; Site: right antecubital;ko1 07:47 Follow up: Response: No adverse reaction ko1 07:40 Drug: fentaNYL (PF) IVP 50 mcg IVP once Route: IVP; Site: right antecubital; ko1 07:55 Follow up: Response: No adverse reaction; Pain is decreased ko1 07:45 Drug: Albuterol Inhalation 2.5 mg Inhalation every 20 minutes x3 Route: Inhalation; ko1 07:45 Drug: MethylPrednisoLONE IVP 125 mg IVP once Route: IVP; Site: right antecubital; ko1 08:00 Follow up: Response: No adverse reaction ko1 07:45 Drug: Ipratropium Inhalation Aerosol 0.5 mg Inhalation once; Every 20 min for a total ko1 of 3 treatments x3 Route: Inhalation; 07:54 Drug: Rocephin - Rocephin (cefTRIAXone) IVPB 1 grams IVPB once over 30 mins; (mix in 50 ko1 mL NS) Route: IVPB; Infused Over: 30 mins; Site: right antecubital; 08:10 Follow up: Response: No adverse reaction; IV Status: Completed infusion; IV Intake: [id number] 08:03 Drug: Albuterol Inhalation 2.5 mg Inhalation every 20 minutes x3 Route: Inhalation; ko1 08:03 Drug: Ipratropium Inhalation Aerosol 0.5 mg Inhalation once; Every 20 min for a total ko1 of 3 treatments x3 Route: Inhalation; 08:26 Drug: Albuterol Inhalation 2.5 mg Inhalation every 20 minutes x3 Route: Inhalation; ko1 08:29 Follow up: Response: No adverse reaction; Wheezing diminished ko1 08:26 Drug: Ipratropium Inhalation Aerosol 0.5 mg Inhalation once; Every 20 min for a total ko1 of 3 treatments x3 Route: Inhalation; 08:28 Follow up: Response: No adverse reaction; Wheezing diminished ko1 12:15 Drug: Ativan IVP 1 mg IVP once Route: IVP; Site: right antecubital; ph 12:16 Follow up: Response: No adverse reaction ph 12:15 Drug: diphenhydrAMINE IVP 25 mg IVP once Route: IVP; Site: right antecubital; ph 12:16 Follow up: Response: No adverse reaction ph Medication: 07:30 VIS not applicable for this client. ko1 Intake: 08:10 IV: 50ml; Total: 50ml. ko1 Outcome: 13:04 Decision to Hospitalize by Provider. ec2 17:16 Admitted to Tele accompanied by nurse, via wheelchair, with chart, cp4 17:16 Condition: stable 17:16 Instructed on the need for admit, 17:17 Patient left the ED. cp4 Signatures: Dispatcher [employer] Roshni Heard RN RN ph Vicente, Ronaldo, RN RN rv Oliver, Kathy, RN RN ko1 Mona Farley RN RN jj7 Potepalov, Sergey, MD MD sp4 Jared Dao MD MD ec2 Mckenzie Loera cp4
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
[2024-03-09] MEDS ORDERED: ONDANSETRON 4 MG/2 ML VIAL IV PRN (13:56)
[2024-03-09 17:38] VITALS: BMI 28.2
[2024-03-09] MEDS: NA CHLORIDE 0.9% 1,000 ML IV SCH (17:51)
[2024-03-09] MEDS: FENTANYL CITR 100 MCG/2 ML IV PRN (18:23)
[2024-03-09] MEDS: IPRATROPIUM BROM 0.5MG/2.5ML NEB SCH (20:17)
[2024-03-09] MEDS: ALBUTEROL 2.5 MG/3 ML NEB SOL NEB SCH (20:17)
[2024-03-09] MEDS: METHYLPREDNISOLONE 125 MG INJ IV SCH (20:33)
[2024-03-09] MEDS: HYDROCODONE/APAP 7.5/325 MG TAB PO PRN (22:27)
[2024-03-09] MEDS: BENZONATATE 100 MG CAP PO PRN (22:27)
[2024-03-10 07:12] LABS: Absolute Lymphocytes (CBC) 0.6 K/uL (0.7-4.9); Absolute Monocytes 0.3 K/uL (0.1-1.3); Absolute Neutrophil 16.9 K/uL (1.8-8.0); Basophils % 0.1 % (0-1.3); Hematocrit 37.4 % (36.0-45.0); Hemoglobin 12.3 g/dL (12.0-15.0); Lymphocytes % 3.4 % (15.3-44.8); MCH 30.5 pg (27.0-35.0); MCV 92.6 fL (80-100); MPV 7.8 fL (7.6-11.3); Monocytes % 1.7 % (3.3-12.3); Neutrophils % 94.8 % (41.7-73.7); Platelets 263 thou/uL (152-406); RBC Red Blood Cell Count 4.04 M/uL (3.86-4.86)
[2024-03-10 07:20] LABS: PTT, Activated Partial Thromb 29.5 SECONDS (24.3-36.9)
[2024-03-10 07:29] LABS: Albumin 3.4 g/dL (3.4-5.0); Albumin/Globulin Ratio 0.9 (1.1-1.8); Bilirubin Total 0.4 mg/dL (0.2-1.0); C-Reactive Protein 5.29 mg/L (<3.00); Globulin 3.6 g/dL (2.3-3.5)
--- NOTE | 2024-03-10 08:00 | P.PN ---
Subjective Date of Service: 03/11/24 Chief Complaint: Shortness of breath 97% on room air, plan to wean Admitted with a COPD exacerbation, she reports no insurance and unable to see finance assistant. noted elevated liver enzymes ALT AST, improving overnight reports history of cholecystectomy, Noted leukocytosis 17.90 likely secondary to steroid use - Physical Exam General: Alert, In no apparent distress, Oriented x3 HEENT: Atraumatic, PERRLA, Mucous membr. moist/pink, EOMI, Sclerae nonicteric Neck: Supple, 2+ carotid pulse no bruit, No LAD, Without JVD or thyroid abnormality Respiratory: Equal unlabored, wheezing Cardiovascular: Regular rate/rhythm, Normal S1 S2 Gastrointestinal: Normal bowel sounds, Soft and benign, Non-distended, No tenderness Musculoskeletal: No clubbing, No swelling, No tenderness Integumentary: No rashes Neurological: Normal gait, Normal speech, Normal strength at 5/5 x4 extr, Normal tone, Sensation intact, Cranial nerves 3-12 intact, Normal affect Lymphatics: No axilla or inguinal lymphadenopathy <Dyana Phillips - Last Filed: 03/11/24 08:24> Date of Service: 03/10/24 <Suresh Martinez - Last Filed: 03/14/24 13:07> Review of Systems Per HPI <Dyana Phillips - Last Filed: 03/11/24 08:24> Physical Examination - Vital Signs Temperature: 97.8 F Blood Pressure: 158/88 Pulse: 90 Respirations: 16 Pulse Ox (%): 95 <Dyana Phililps - Last Filed: 03/11/24 08:24> - Studies Microbiology Data (last 24 hrs): 03/09/24 07:50 Blood - Blood Aerobic Blood Culture - Final No growth in 5 days. 03/09/24 07:50 Blood - Blood Anaerobic Blood Culture - Final No growth in 5 days. 03/09/24 06:55 Blood - Blood Aerobic Blood Culture - Final No growth in 5 days. 03/09/24 06:55 Blood - Blood Anaerobic Blood Culture - Final No growth in 5 days. <Suresh Martinez - Last Filed: 03/14/24 13:07> Assessment And Plan - Plan Assessment & Plan - Problems (Diagnosis) Acute asthma exacerbation improved Acute hypoxic respiratory failure secondary to asthma exacerbation improved Current Visit: Yes Status: Acute Abnormal AST and ALT improving Current Visit: Yes Status: Acute Dyspnea on exertion Current Visit: Yes Status: Acute - Plan Plan: 1. Continue with albuterol and Atrovent nebs 2. Continue with IV steroids, wean steroid 3. Outpatient pulmonary function testing 4. Pulmonary follow-up if symptoms do not improve 5. Room air O2 sats 6. Repeat chest x-ray in the morning 7. Peak flows as needed 8. Monitor LFTs; acute hepatitis panel 9. GI and DVT prophylaxis Discharge Plan: Home Discharge Plan: Home - Code Status/Comfort Care Code Status: Full Code Critical Care: No Time Spent Managing PTS Care (In Minutes): 35 <Dyana Phillips - Last Filed: 03/11/24 08:24> - Current Problems (Diagnosis) (1) Acute asthma exacerbation Status: Acute (2) Abnormal AST and ALT Status: Acute (3) Dyspnea on exertion Status: Acute <uSresh Martinez - Last Filed: 03/14/24 13:07> Date of Service: 03/10/24 Patient was seen and examined. Events of the last 24 hours have been noted. Spoke with with ROSEANNA regarding patient's clinical picture after evaluating and examining the patient independently. I performed a substantial part of the MDM during this patient's care today. I personally made or approved the documented management plan and acknowledge its risk of complications. I agree with the findings and documentation provided in the ROSEANNA's notes. patient's respiratory status is stable. Continuing with nebs, steroids, antibiotics. Echocardiogram pending. Continue with diuresing. <Suresh Martinez - Last Filed: 03/14/24 13:07>
[2024-03-10] MEDS: FUROSEMIDE 20 MG/ 2ML VIAL IV SCH (08:42)
[2024-03-10 09:05] LABS: Hepatitis B Core IgM Nonreactive (Nonreactive); Hepatitis B surface AG Interp. Nonreactive (Nonreactive); Hepatitis C Virus Ab Nonreactive (Nonreactive)
[2024-03-10 09:06] LABS: HBsAG Nonreactive Report Report
[2024-03-10 09:27] LABS: Platelet Estimate ADEQ; White Blood Cell Scan OK (OK)
[2024-03-10 09:28] LABS: Blood Morphology Comment NOT SEEN (NOT SEEN)
[2024-03-10 13:41] VITALS: O2SAT 97
[2024-03-10] MEDS: METHYLPREDNISOLONE 40 MG INJ IV SCH (17:36)
[2024-03-10] MEDS ORDERED: METHYLPREDNISOLONE 125 MG INJ IV SCH (20:00)
--- NOTE | 2024-03-11 08:29 | P.DS ---
Admission Date: 03/09/24 Discharge Date: 03/13/24 Reason for Admission: Shortness of breath Brief History of Present Illness: 53-year-old female who comes into the hospital with difficulty breathing. Patient was having cough and congestion so she came to the ER for further evaluation. She was here this morning at 6:00. They called us later in the afternoon for admission for acute COPD exacerbation. There was incidental finding of elevated ALT and AST's. Patient states she had her gallbladder taken out in March of last year. Patient states she was kept in the hospital a few days afterward because her ALT and AST were elevated. They were not really able to figure out exactly what was the pathology behind her elevated ALT and AST. She has used opioids for 17 years and quit "cold turkey" a few years ago. She has been wanting to get back into see a kiln car repairer because she has been told she has bronchial asthma. However, she does not have insurance so she was unable to follow-up with her kiln car repairer. Currently, she did get approved for some insurance coverage so she is wanting a referral to see pulmonary at discharge. Currently she is feeling better, and her oxygen saturations are improved. She will be admitted to the hospital for further observation - Physical Exam General: Alert, In no apparent distress, Oriented x3 HEENT: Atraumatic, PERRLA, Mucous membr. moist/pink, EOMI, Sclerae nonicteric Neck: Supple, 2+ carotid pulse no bruit, No LAD, Without JVD or thyroid abnormality Respiratory: Equal unlabored, mild wheeze Cardiovascular: Regular rate/rhythm, Normal S1 S2 Gastrointestinal: Normal bowel sounds, Soft and benign, Non-distended, No tenderness Musculoskeletal: No clubbing, No swelling, No tenderness Integumentary: No rashes Neurological: Normal gait, Normal speech, Normal strength at 5/5 x4 extr, Normal tone, Sensation intact, Cranial nerves 3-12 intact, Normal affect Lymphatics: No axilla or inguinal lymphadenopathy Hospital Course: 53 year-old female patient presented with asthma exacerbation. Condition improved with breathing treatments, Solu-Medrol, oxygen. Patient tolerating diet, stable for discharge to home with follow-up appointment with primary care physician. Follow-up with pulmonary after discharge PROBLEM: Asthma exacerbation improved Transaminitis improved Educate on medication compliance with inhalers Follow-up with pulmonary after discharge Continue home medicines as previously prescribed GOAL: Clear understanding of disease process INSTRUCTIONS: Physician Discharge Instructions: -DC IV and DC home -Follow-up with PCP in 1 to 2 weeks -Please call Dr. Martinez at [phone] if any questions regarding hospital stay -Please call nursing station at [phone] if any nursing or medication questions -Return to the emergency room if symptoms worsen Diet: ADA, low sodium Activity: Fall precautions <Dyana Phillips - Last Filed: 03/13/24 11:05> Admission Date: 03/09/24 Discharge Date: 03/11/24 - Problems (1) Acute asthma exacerbation Status: Acute (2) Abnormal AST and ALT Status: Acute (3) Dyspnea on exertion Status: Acute Hospital Course: Patient is clinically doing well. Patient's clinical status has improved. Continue with nebs, steroids, and antibiotics. Patient also with congestive heart failure. Continue with diuresing. <Suresh Martinez - Last Filed: 03/14/24 13:08> Disposition: ROUTINE DISCHARGE Discharge Condition: GOOD Vital Signs/Physical Exam: Temp Pulse Resp BP Pulse Ox 97.8 F 90 16 158/88 H 95 03/11/24 08:25 03/11/24 08:25 03/11/24 08:25 03/11/24 08:25 03/11/24 08:25 Laboratory Data at Discharge: WBC 17.90 thou/uL (4.3-10.9) H 03/10/24 06:35 Hgb 12.3 g/dL (12.0-15.0) 03/10/24 06:35 Hct 37.4 % (36.0-45.0) 03/10/24 06:35 Plt Count 263 thou/uL (152-406) 03/10/24 06:35 PT 11.0 SECONDS (9.5-12.5) 03/10/24 06:35 INR 1.00 03/10/24 06:35 APTT 29.5 SECONDS (24.3-36.9) 03/10/24 06:35 Sodium 136 mEq/L (136-145) 03/10/24 06:35 Potassium 4.0 mEq/L (3.5-5.1) 03/10/24 06:35 BUN 14 mg/dL (7-18) 03/10/24 06:35 Creatinine 0.61 mg/dL (0.55-1.02) 03/10/24 06:35 Glucose 144 mg/dL (74-106) H 03/10/24 06:35 Magnesium 2.0 mg/dL (1.6-2.4) 03/09/24 06:55 Total Bilirubin 0.4 mg/dL (0.2-1.0) 03/10/24 06:35 AST 105 U/L (15-37) H 03/10/24 06:35 ALT 273 U/L (13-56) H 03/10/24 06:35 Alkaline Phosphatase 109 U/L (45-117) 03/10/24 06:35 Triglycerides 49 mg/dL (<150) 03/10/24 06:35 Cholesterol 155 mg/dL (<200) 03/10/24 06:35 HDL Cholesterol 77 mg/dL (40-60) H 03/10/24 06:35 Cholesterol/HDL Ratio 2.01 03/10/24 06:35 Lipase 30 U/L (13-75) 03/09/24 06:55 <Dyana Phillips - Last Filed: 03/13/24 11:05> Vital Signs/Physical Exam: Temp Pulse Resp BP Pulse Ox 97.8 F 76 15 152/90 H 96 03/11/24 14:00 03/11/24 14:00 03/11/24 14:00 03/11/24 14:00 03/11/24 14:00 Laboratory Data at Discharge: WBC 16.20 thou/uL (4.3-10.9) H 03/11/24 10:51 Hgb 13.3 g/dL (12.0-15.0) 03/11/24 10:51 Hct 40.1 % (36.0-45.0) 03/11/24 10:51 Plt Count 289 thou/uL (152-406) 03/11/24 10:51 PT 11.0 SECONDS (9.5-12.5) 03/10/24 06:35 INR 1.00 03/10/24 06:35 APTT 29.5 SECONDS (24.3-36.9) 03/10/24 06:35 Sodium 136 mEq/L (136-145) 03/11/24 10:51 Potassium 3.8 mEq/L (3.5-5.1) 03/11/24 10:51 BUN 18 mg/dL (7-18) 03/11/24 10:51 Creatinine 0.80 mg/dL (0.55-1.02) 03/11/24 10:51 Glucose 122 mg/dL (74-106) H 03/11/24 10:51 Magnesium 2.2 mg/dL (1.6-2.4) 03/11/24 10:51 Total Bilirubin 0.4 mg/dL (0.2-1.0) 03/11/24 10:51 AST 65 U/L (15-37) H 03/11/24 10:51 ALT 236 U/L (13-56) H 03/11/24 10:51 Alkaline Phosphatase 108 U/L (45-117) 03/11/24 10:51 Triglycerides 49 mg/dL (<150) 03/10/24 06:35 Cholesterol 155 mg/dL (<200) 03/10/24 06:35 HDL Cholesterol 77 mg/dL (40-60) H 03/10/24 06:35 Cholesterol/HDL Ratio 2.01 03/10/24 06:35 Lipase 30 U/L (13-75) 03/09/24 06:55 <Suresh Martinez - Last Filed: 03/14/24 13:08> Time spent managing pt's care (in minutes): 55 <Dyana Phillips - Last Filed: 03/13/24 11:05> <Suresh Martinez - Last Filed: 03/14/24 13:08> Home Medications: Albuterol Neb [Proventil 0.083% Neb Soln] 2.5 mg NEB [id number] 30 Days #1 box 03/11/24 Benzonatate [Tessalon Perle*] 200 mg PO TID PRN 10 Days #30 cap 03/11/24 Budesonide/Formoterol Fumarate [Symbicort 160-4.5 Mcg Inhaler] 2 puff IH BID 30 Days #1 inh 03/11/24 Furosemide [Lasix*] 20 mg PO DAILY #30 tab 03/11/24 Ipratropium Neb [Atrovent*] 0.5 mg NEB [id number] PRN 30 Days #1 box 03/11/24 Losartan Potassium [Cozaar*] 50 mg PO BID #60 tab 03/11/24 Potassium Chloride 10 meq PO DAILY #30 tab 03/11/24 carvediloL [Coreg*] 6.25 mg PO BID 6AM 6PM #60 tab 03/11/24 predniSONE [Deltasone] 20 mg PO BID 5 Days #10 tab 03/11/24 New Medications: Ipratropium Neb [Atrovent*] 0.5 mg NEB [id number] PRN 30 Days #1 box PRN Reason: Shortness Of Breath carvediloL [Coreg*] 6.25 mg PO BID 6AM 6PM #60 tab Losartan Potassium [Cozaar*] 50 mg PO BID #60 tab Furosemide [Lasix*] 20 mg PO DAILY #30 tab Potassium Chloride 10 meq PO DAILY #30 tab predniSONE [Deltasone] 20 mg PO BID 5 Days #10 tab Albuterol Neb [Proventil 0.083% Neb Soln] 2.5 mg NEB [id number] 30 Days #1 box Budesonide/Formoterol Fumarate [Symbicort 160-4.5 Mcg Inhaler] 2 puff IH BID 30 Days #1 inh Benzonatate [Tessalon Perle*] 200 mg PO TID PRN 10 Days #30 cap PRN Reason: Cough Physician Discharge Instructions: -DC IV and DC home -Follow-up with PCP in 1 to 2 weeks -Follow-up with Pulmonary and Cardiology in 1 to 2 weeks -Please call Dr. Martinez at [phone] if any questions regarding hospital stay -Please call nursing station at [phone] if any nursing or medication questions -Return to the emergency room if symptoms worsen Followup: Francois Spicer MD [ACTIVE - CAN ADMIT] - NONE,NONE [Primary Care Provider] - Saran Quinteros MD [ACTIVE - CAN ADMIT] -
[2024-03-11 08:41] VITALS: TEMP 97.8
[2024-03-11] MEDS: LOSARTAN POTASSIUM 50 MG TABLET PO SCH (09:59)
[2024-03-11] MEDS: FUROSEMIDE 20 MG TABLET PO SCH (09:59)
[2024-03-11] MEDS: HYDRALAZINE HCL 20 MG/ML VIAL IV ONE (10:00)
[2024-03-11 11:02] LABS: Absolute Lymphocytes (CBC) 0.7 K/uL (0.7-4.9); Absolute Monocytes 0.4 K/uL (0.1-1.3); Basophils % 0.1 % (0-1.3); Eosinophils % 0.1 % (0-4.4); Hematocrit 40.1 % (36.0-45.0); Hemoglobin 13.3 g/dL (12.0-15.0); Lymphocytes % 4.3 % (15.3-44.8); MCH 30.5 pg (27.0-35.0); MCHC 33.1 g/dL (32.0-36.0); MCV 92.2 fL (80-100); MPV 7.9 fL (7.6-11.3); Monocytes % 2.6 % (3.3-12.3); Neutrophils % 92.9 % (41.7-73.7); Platelets 289 thou/uL (152-406); RBC Red Blood Cell Count 4.35 M/uL (3.86-4.86); Red Cell Distribution Width 16.1 % (12.1-15.2)
[2024-03-11 11:23] LABS: Albumin 3.7 g/dL (3.4-5.0); Albumin/Globulin Ratio 0.9 (1.1-1.8); Anion Gap 9.8 mEq/L (5.0-15.0); Bilirubin Total 0.4 mg/dL (0.2-1.0); Globulin 3.9 g/dL (2.3-3.5); Magnesium 2.2 mg/dL (1.6-2.4); Potassium 3.8 mEq/L (3.5-5.1); Protein, Total 7.6 g/dL (6.4-8.2)
[2024-03-11] MEDS: METOPROLOL TARTRATE 5 MG/5 ML INJ IV STA (13:38)
[2024-03-11 14:27] VITALS: BP 152/90
[2024-03-11] MEDS ORDERED: carvediloL 6.25 MG TAB PO SCH (18:00)
--- NOTE | 2024-03-14 07:53 | ECHO ---
HEIGHT: 5 ft 6 in WEIGHT: 175 lb 0 oz DATE OF STUDY: 03/11/[address]: Suresh Martinez MD 2-DIMENSIONAL: YES M.MODE: YES DOPPLER: YES COLOR FLOW: YES TDS: PORTABLE: YES DEFINITY: BUBBLE STUDY: DIAGNOSIS: CONGESTIVE HEART FAILURE CARDIAC HISTORY: CATHERIZATION: NO SURGERY: NO PROSTHETIC VALVE: NO PACEMAKER: NO MEASUREMENTS (cm) DIASTOLIC (NORMALS) SYSTOLIC (NORMALS) IVSd 1.1 (0.6-1.2) LA Diam 2.9 (1.9-4.0) LVEF 41% LVIDd 5.8 (3.5-5.7) LVIDs 4.6 (2.0-3.5) %FS 21% LVPWd 1.3 (0.6-1.2) Ao Diam 2.9 (2.0-3.7) 2 DIMENSIONAL ASSESSMENT: RIGHT ATRIUM: NORMAL LEFT ATRIUM: NORMAL RIGHT VENTRICLE: NORMAL LEFT VENTRICLE: DILATED LEFT VENTRICLE TRICUSPID VALVE: MILD TRICUSPID INSUFFICIENCY MITRAL VALVE: MILD MITRAL REGURGITATION PULMONIC VALVE: MILD PULMONIC INSUFFICIENCY AORTIC VALVE: NORMAL PERICARDIAL EFFUSION: NONE AORTIC ROOT: NORMAL LEFT VENTRICULAR WALL MOTION: MODERATE GLOBAL HYPOKINESIS DOPPLER/COLOR FLOW: SEE BELOW COMMENTS: 1. MODERATELY DEPRESSED LEFT VENTRICULAR EJECTION FRACTION 35-40 % WITH MODERATE GLOBAL HYPOKINESIS 2. DIASTOLIC DYSFUNCTION 3. MILD TRICUSPID REGURGITATION, PULMONIC INSUFFICIENCY 4. MILD MITRAL REGURGITATION TECHNOLOGIST: SAMANTHA HUANG
== END 2024-03-11 14:36 | disposition home or self-care (01) ==
LOC: ER 06:33 → ERHOLD 13:56 → 4TH 15:07
PROVIDERS: ADMIT Hospitalist; ATTEND Hospitalist
DX: J44.1 Chronic obstructive pulmonary disease with (acute) exacerbation (principal); R05.9 Cough, unspecified; R06.00 Dyspnea, unspecified; R74.01 Elevation of levels of liver transaminase levels; Z88.5 Allergy status to narcotic agent; Z88.1 Allergy status to other antibiotic agents; I10 Essential (primary) hypertension; E03.9 Hypothyroidism, unspecified; F17.210 Nicotine dependence, cigarettes, uncomplicated
CPT/HCPCS: 36415; 71045; 71275; 74177; 74181; 80048; 80053; 80061; 80074; 80076; 82550; 82805; 83690; 83735; 83880; 84484; 85025; 85610; 85730; 86038; 86140; 87040; 93005; 93306; 94640; 96365; 96375; 99285; G0378; J0360; J0696; J1200; J1940; J2405; J2919; J2920; J3010; J7030; J7613; J7644; Q9967